=== PATIENT | male | born 1970 | race Hispanic/Latino ===

== ENCOUNTER 2024-09-06 14:42 | Inpatient (IN) | payer BC ==
[~2024-09-06] VITALS: Ht 177.8 cm; Wt 95.3 kg
[2024-09-06 16:46] VITALS: O2SAT 100
[2024-09-06 17:26] VITALS: BP 121/70; PULSE 94; RESP 17; TEMP 98.9
[2024-09-06] MEDS ORDERED: ceFAZolin SODIUM 1 GM VIAL IVP SCH (17:30)
[2024-09-06] MEDS ORDERED: HEParin 25,000 UNITS/250ML D5W 250 ML IV SCH (18:00)
--- NOTE | 2024-09-06 18:42 | HP ---
[facility] HISTORY AND PHYSICAL Date of Service: September 06, 2024 Time of Service: 18:42 Attending/supervising physicians: Dr. Gallegos and Dr. Jv Knox HISTORY OF PRESENT ILLNESS: Mr. Merritt is a 53-year-old male with a history of tobacco and cocaine abuse who [place] [facility] [place] [facility] for evaluation of CABG for the diagnosis of multivessel disease. Per chart review the patient presented to [facility] on 09/06/2024 with chest pain that started at 1:00 a.m.. The patient reported he had cocaine on 09/05/2024 night. EKG showed sinus rhythm with a recent OK in the anterior septal lead. His troponins were markedly elevated. The patient was evaluated by Dr. Ange Bro, brown stock washer Per Echo done on 09/06/2024: Left ventricular systolic dysfunction is spbruhld-ha-igwoyg decreased. There was anterior anterolateral, anteroseptal wall hypokinesis LVEF is 35-40%. Transmitral Doppler flow pattern suggestive of impaired LV relaxation. The patient underwent a left heart catheterization on 09/06/2024, findings: Left main- It bifurcates into LAD and left circumflex arteries. It has proximal 40% disease. 2. LAD: It is 100% chronic total occlusion of the proximal segment of LAD. The distal segment was filling partially via collaterals coming from the right coronary artery. 3. Left circumflex artery: It has 2 obtuse marginal branches. There is 99% disease in the mid segmental of the left circumflex artery. 4. RCA: It is the dominant vessel. There is proximal 40% disease. There is a mid RCA 80% disease. Distal RCA is also has 20% disease. Right PLB also has diffuse 20% disease. 5. LVED P: 60 mm Hg. I assessed the patient in room 201. RN reports that he spoke to Dr. Abreu who reports that the plan is for surgery tomorrow. The patient's breathing was even, unlabored, in no distress. Patient reports intermittent chest pain. states she is concern for medication administration due to his use of cocaine. I informed the patient and at bedside of plan of care. They verbalized understanding and are in agreement with the plan. Plan and assessment are listed below. REVIEW OF SYSTEMS 12-point ROS reviewed with the patient. All pertinent positives mentioned above. Otherwise negative, nonpertinent, noncontributory. PAST MEDICAL HISTORY: As mentioned above PAST SURGICAL HISTORY: None PAST SOCIAL HISTORY: + cocaine abuse, tobacco abuse, and alcohol abuse Coded Allergies: No Known Drug Allergies (Unverified Allergy, Unknown, 09/06/24) PHYSICAL EXAM GENERAL APPEARANCE: The patient is awake, alert, and oriented, in no acute cardiopulmonary distress. NEUROLOGICAL: Cranial nerves II-XII grossly intact. Motor is 5/5 in bilateral upper and lower extremities proximal to distal. No sensory deficits. HEENT: Face is symmetric. Pupils are equal and reactive. Extraocular movements are intact. NECK: Supple. No JVD. No thyromegaly. No submental, submandibular, pre- /postauricular, occipital or supraclavicular lymphadenopathy. CHEST: Normal chest expansion. No Telemetry. LUNGS: Absence of any rales, rhonchi or any wheezing. CARDIOVASCULAR: Regular. S1 and S2 normal. No appreciable rubs, murmurs or gallops. ABDOMEN: Soft, nontender, and nondistended. There is no rebound, voluntary guarding, or rigidity. : Deferred. No Mott. EXTREMITIES: Non-edematous and not cyanotic. No clubbing. Good capillary refill. SKIN: No skin breakdown. Vital Sign (Last 24 Hours) 09/06/24 09/06/24 16:46 17:26 Temp 99.0 Pulse 94 Resp 17 B/P (MAP) 121/70 Pulse Ox 97 O2 Delivery Room Air O2 Flow Rate 0 FiO2 21 LABS: Current Medications Medications (Trade) Dose Ordered Sig/Georgina Route PRN Reason Start Time Stop Time Status Last Admin Dose Admin Atorvastatin Calcium (LIPItor 40MG) 40 mg HS PO 09/06/24 21:00 10/06/24 20:59 Cefazolin Sodium (ANCEF 1 gm vial) 2 gm ONCALL IVP 09/06/24 17:30 09/08/24 17:29 Heparin Sodium/ Dextrose 250 ml @ 0 mls/hr PROTOCOL IV 09/06/24 18:00 10/06/24 17:59 Pantoprazole Sodium (PROTonix 40MG TAB) 40 mg DAILY PO 09/07/24 09:00 10/07/24 08:59 DIAGNOSTICS / RADIOLOGY: [ ] ASSESSMENT: Non ST-elevation OK, POA Severe multivessel coronary artery disease, per left heart catheterization on 09/06/2024: 1. Left main- It bifurcates into LAD and left circumflex arteries. It has proximal 40% disease. 2. LAD: It is 100% chronic total occlusion of the proximal segment of LAD. The distal segment was filling partially via collaterals coming from the right coronary artery. 3. Left circumflex artery: It has 2 obtuse marginal branches. There is 99% disease in the mid segmental of the left circumflex artery. 4. RCA: It is the dominant vessel. There is proximal 40% disease. There is a mid RCA 80% disease. Distal RCA is also has 20% disease. Right PLB also has diffuse 20% disease. 5. LVED P: 60 mm Hg. Left ventricular systolic dysfunction is [id number] decreased, per echo on 09/06/2024 Anterior anterolateral, anteroseptal wall hypokinesis LVEF is 35-40%, per echo on 09/06/2024Transmitral Doppler flow pattern suggestive of impaired LV relaxation. Diastolic dysfunction Acute hypoxemic respiratory failure, POA Leukocytosis Hyperglycemia Transaminitis Elevated BNP Cocaine abuse Tobacco abuse PLAN: -Admit to medical floor with continuous telemetry monitoring. -Troponin levels and EKG series. -CV surgeon was consulted upon patient arrival by primary nurse. Plan is for CABG tomorrow. -Cardiology consult in the am. -2D echo in a.m. with heart clinic to read. -p.r.n. medications for: Pain management, nausea, vomiting, fever, hypertension. -Oxygen supplement as needed to maintain oxygen levels equal to or greater than 92% -Start heparin drip ordered by CV surgeon. -Atorvastatin 40 mg PO daily. -Ancef 2 g on-call to OR. -Blood pressure checks every 4 hours and as needed. -Reconcile home medications once available. -Glucometer checks before meals and at bedtime with insulin regular sliding scale. -AM labs: CBC, BNP, Mag, phos, TSH, A1c, ABO Rh/type and screen. -Monitor renal and liver function. -Monitor electrolytes and treat accordingly. -DVT and GI prophylaxis: Heparin and Protonix. ADVANCED CARE PLANNING 1. Which of the following were discussed? Hospice Care - No Therapeutic options - Yes Advance Directives - Yes Other discussions - 2. Discussed with who? Patient 3. Voluntary nature of this service was explained to the patient? Yes 4. Amount of time spent - __ over 35 minutes 5. Reviewed by Physician? (if this service was performed by NPP) Yes ATTESTATION BY PHYSICIAN I have seen and examined the patient. I reviewed the documentation, medical decision making, and treatment plan as noted by the mid-level provider above. I agree with the findings and plan of care. NANCY CHAVEZ [facility] September 06, 2024 18:42
[2024-09-06 18:59] LABS: BASOPHILS # (AUTO) 0.05 K/uL (0.00-0.20); BASOPHILS % (AUTO) 0.4 % (0.0-5.0); EOSINOPHILS % (AUTO) 0.7 % (0.0-8.0); HEMATOCRIT 46.9 % (42-54); IMMATURE GRANULOCYTE ABSOLUTE 0.06 K/uL (0-1); LYMPHOCYTES # (AUTO) 1.8 K/uL (1.0-4.8); LYMPHOCYTES % (AUTO) 13.1 % (21.0-51.0); MEAN CORPUSCULAR HEMOGLOBIN 31.2 pg (27.0-33.0); MEAN CORPUSCULAR HGB CONC 35.2 g/dL (32.0-36.0); MEAN CORPUSCULAR VOLUME 88.7 fL (79-99); MONOCYTES # (AUTO) 1.1 K/uL (0.1-1.0); MONOCYTES % (AUTO) 8.3 % (3.0-13.0); NEUTROPHILS # (AUTO) 10.5 K/uL (1.8-7.7); NEUTROPHILS % (AUTO) 77.1 % (40.0-77.0); PLATELET COUNT (AUTO) 269 K/uL (130-400); RED BLOOD CELL COUNT(AUTO) 5.29 MIL/uL (4.50-6.20); RED CELL DISTRIBUTION WIDTH 13.2 % (11.0-15.5); WHITE BLOOD COUNT (AUTO) 13.6 K/uL (4.8-10.8)
[2024-09-06] MEDS ORDERED: LACTULOSE 20 GM/30 ML UDCUP PO PRN (19:00)
[2024-09-06] MEDS ORDERED: LAbetaLOL 20MG SYG IV PRN (19:00)
[2024-09-06] MEDS ORDERED: acetaMINOPHEN 325 MG TAB PO PRN (19:00)
[2024-09-06] MEDS ORDERED: ondanSETRON 4MG INJ IVP PRN (19:00)
[2024-09-06] MEDS ORDERED: doCUSate SODIUM 100 MG CAP PO PRN (19:00)
[2024-09-06] MEDS ORDERED: acetaMINOPHEN 650 MG SUPPOSITORY RC PRN (19:00)
[2024-09-06 19:11] LABS: INR 0.99 (0.85-1.15); PROTHROMBIN TIME 10.5 SEC (9.6-11.6)
[2024-09-06 19:13] LABS: PARTIAL THROMBOPLASTIN TIME 26.2 SEC (26.3-35.5)
[2024-09-06 19:24] LABS: BILIRUBIN,TOTAL 0.5 mg/dL (0.2-1.0); CREATININE 1.1 mg/dL (0.5-1.3); POTASSIUM 4.3 mmol/L (3.5-5.1); TOTAL PROTEIN, SERUM 8.1 g/dL (6.0-8.3)
[2024-09-06 19:25] VITALS: BP 126/74; PULSE 93; RESP 18; TEMP 98.7
--- NOTE | 2024-09-06 19:37 | HMCIMG ---
Exam Type: CHEST 1VW Clinical Information: preop CABG Comparison: None Findings: The lungs are clear of infiltrates. The heart is normal in size. The bony and soft tissue structures of the chest are unremarkable. Impression: Clear lungs.
[2024-09-06 19:58] VITALS: O2SAT 100
[2024-09-06 19:58] LABS: ABG BASE EXCESS -1.4 mmol/L (-2.0-3.0); ABG HCO3 22.9 mmol/L (21.0-28.0); ABG OXYGEN SATURATION 95.7 % (94.0-98.0); ABG PCO2 37 mmHg (35-48); ABG PH 7.404 (7.350-7.450); PO2, ARTERIAL BG 78.2 mmHg (83.0-108.0); VENT MODE, BG RA (ROOM AIR)
--- NOTE | 2024-09-06 20:28 | HMCIMG ---
Carotid Duplex and color-flow Doppler bilateral History: preop CABG Comparison: None Findings: No significant plaque is identified on either side. Left Internal Carotid Artery Peak Systolic Velocity (PSV), Left Internal Carotid to Common Carotid Artery peak systolic velocity ratio, Right Internal Carotid Artery Peak Systolic Velocity (PSV) and Right Internal Carotid to Common Carotid Artery peak systolic velocity ratio, are all within normal limits. External carotid artery velocities normal bilaterally. Bilateral vertebral arteries show antegrade flow. Impression: Normal exam. NASCET CRITERIA. The degree of internal carotid artery stenosis is based on NASCET criteria. Normal is no stenosis. Mild is less than 50% stenosis. Moderate is 50-69% stenosis. Severe is 70% to 99% stenosis. Total occlusion is no detectable patent lumen.
[2024-09-06] MEDS: atorVAStatin 40 MG TABLET PO SCH (21:00)
[2024-09-06] MEDS: HEParin 10,000 UNIT/10ML (1,000 UNIT/ML) VIAL IV ONE (21:30)
[2024-09-06] MEDS: morPHINE 4 MG SYG IM SCH (21:30)
[2024-09-06] MEDS ORDERED: traMADol HCL 50 MG TABLET PO SCH (21:30)
[2024-09-06 23:04] VITALS: BP 122/76; PULSE 101; RESP 16; TEMP 99.3
[2024-09-07] VITALS (47 sets, daily range): BP systolic 83–174; BP diastolic 52–88; PULSE 72–107; RESP 12–26; TEMP 97.7–99.7; O2SAT 97–100
[2024-09-07] MEDS: INSULIN humuLIN R 100 UNIT/ML 3ML SQ SCH
[2024-09-07 02:18] LABS: HEMOGLOBIN A1C 5.2 % (4.0-6.0)
[2024-09-07] MEDS ORDERED: traMADol HCL 50 MG TABLET PO PRN ×2 (03:00→12:00)
[2024-09-07 04:24] LABS: HEMATOCRIT 47.2 % (42-54); MEAN CORPUSCULAR HEMOGLOBIN 31.3 pg (27.0-33.0); MEAN CORPUSCULAR VOLUME 89.4 fL (79-99); RED BLOOD CELL COUNT(AUTO) 5.28 MIL/uL (4.50-6.20); RED CELL DISTRIBUTION WIDTH 13.3 % (11.0-15.5); WHITE BLOOD COUNT (AUTO) 13.8 K/uL (4.8-10.8)
[2024-09-07 04:36] LABS: CREATININE 1.2 mg/dL (0.5-1.3); POTASSIUM 3.8 mmol/L (3.5-5.1)
[2024-09-07 04:40] LABS: INR 1.06 (0.85-1.15); PROTHROMBIN TIME 11.2 SEC (9.6-11.6)
[2024-09-07 04:47] LABS: ALBUMIN 3.8 g/dL (3.5-5.0); BILIRUBIN,TOTAL 0.6 mg/dL (0.2-1.0); MAGNESIUM 1.8 mg/dL (1.80-2.40); PHOSPHORUS 4.2 mg/dL (2.5-4.9); THYROID STIMULATING HORMONE 1.09 uIU/mL (0.36-3.74); TOTAL PROTEIN, SERUM 7.7 g/dL (6.0-8.3)
[2024-09-07 05:21] LABS: PARTIAL THROMBOPLASTIN TIME 103.3 SEC (26.3-35.5)
[2024-09-07] MEDS ORDERED: EPINEPHrine PF 1MG (1:1,000) 10 MG in 0.9% NACL 250ML 240 ML IV PRN ×2 (07:00→12:00)
[2024-09-07] MEDS ORDERED: aminoCAProic ACID 5,000MG VIAL 15,000 MG in 0.9% NACL 500ML IV.SOLN 420 ML IV PRN (07:00)
[2024-09-07] MEDS ORDERED: NITROGLYCERIN 50MG/D5W 250ML 1 BOT ONE (07:22)
[2024-09-07] MEDS ORDERED: LACTATED RINGERS 1000ML 1,000 ML IV SCH (08:00)
--- NOTE | 2024-09-07 08:00 | NUR ---
Called Dr. Gallegos for bata aba but BP is below 100 systolic. He ordered LR at 50ml/hr
[2024-09-07] MEDS ORDERED: HEParin-NS 1,000 UNIT/500 ML 500 ML IV ONE (08:10)
[2024-09-07] MEDS ORDERED: PANTOPrazole 40 MG TAB DR PO SCH (09:00)
--- NOTE | 2024-09-07 09:03 | PN ---
[facility] PROGRESS NOTE Date of Service: September 07, 2024 Time of Service: 09:00 SUBJECTIVE: Mr. Merritt is a 53-year-old male with a history of tobacco and cocaine abuse who presented to [facility] [place] as direct admit from [facility] for evaluation of CABG for the diagnosis of multivessel disease. Per chart review the patient presented to [facility] on 09/06/2024 with chest pain that started at 1:00 a.m.. The patient reported he had cocaine on 09/05/2024 night. EKG showed sinus rhythm with a recent AR in the anterior septal lead. His troponins were markedly elevated. The patient was evaluated by Dr. Ange Bro, credit reference clerk Per Echo done on 09/06/2024: Left ventricular systolic dysfunction is hnypyyln-yi-kpiibg decreased. There was anterior anterolateral, anteroseptal wall hypokinesis LVEF is 35-40%. Transmitral Doppler flow pattern suggestive of impaired LV relaxation. The patient underwent a left heart catheterization on 09/06/2024, findings: Lef t main- It bifurcates into LAD and left circumflex arteries. It has proximal 40% disease. 2. LAD: It is 100% chronic total occlusion of the proximal segment of LAD. The distal segment was filling partially via collaterals coming from the right coronary artery. 3. Left circumflex artery: It has 2 obtuse marginal branches. There is 99% disease in the mid segmental of the left circumflex artery. 4. RCA: It is the dominant vessel. There is proximal 40% disease. There is a mid RCA 80% disease. Distal RCA is also has 20% disease. Right PLB also has diffuse 20% disease. 5. LVED P: 60 mm Hg. Patient was transferred from [facility] to [facility] for the purpose of coronary artery bypass graft by Cardiothoracic surgeon. Today the patient is alert oriented x3, hemodynamically stable, NPO, awaiting to be taken to the operating room today. Family members at bedside. REVIEW OF SYSTEMS 12-point ROS reviewed with the patient. All pertinent positives mentioned above. Otherwise negative, nonpertinent, noncontributory. PHYSICAL EXAM GENERAL APPEARANCE: The patient is awake, alert, and oriented, in no acute cardiopulmonary distress. NEUROLOGICAL: Cranial nerves II-XII grossly intact. Motor is 5/5 in bilateral upper and lower extremities proximal to distal. No sensory deficits. HEENT: Face is symmetric. Pupils are equal and reactive. Extraocular movements are intact. NECK: Supple. No JVD. No thyromegaly. No submental, submandibular, pre- /postauricular, occipital or supraclavicular lymphadenopathy. CHEST: Normal chest expansion. No Telemetry. LUNGS: Absence of any rales, rhonchi or any wheezing. CARDIOVASCULAR: Regular. S1 and S2 normal. No appreciable rubs, murmurs or gallops. ABDOMEN: Soft, nontender, and nondistended. There is no rebound, voluntary guarding, or rigidity. : Deferred. No Mott. EXTREMITIES: Non-edematous and not cyanotic. No clubbing. Good capillary refill. SKIN: No skin breakdown. Vital Signs (last 8hr) Date Time Temp Pulse Resp B/P (MAP) Pulse Ox O2 Delivery O2 Flow Rate FiO2 09/07/24 08:00 99.1 72 18 104/73 96 Room Air 09/07/24 03:15 99.7 89 18 93/64 95 Room Air LABS: Laboratory: Test 09/07/24 03:59 09/06/24 19:56 09/06/24 18:27 Range/Units White Blood Count 13.8 H 4.8-10.8 K/uL Red Blood Count 5.28 4.50-6.20 MIL/uL Hemoglobin 16.5 14.0-18.0 g/dL Hematocrit 47.2 42-54 % Mean Corpuscular Volume 89.4 79-99 fL Mean Corpuscular Hemoglobin 31.3 27.0-33.0 pg Mean Corpuscular Hemoglobin Concent 35.0 32.0-36.0 g/dL Red Cell Distribution Width 13.3 11.0-15.5 % Platelet Count 243 130-400 K/uL Mean Platelet Volume 9.7 7.5-10.5 fL Nucleated Red Blood Cells 0.0 0.0-0.19 % Prothrombin Time 11.2 9.6-11.6 SEC Prothromb Time International Ratio 1.06 0.85-1.15 Activated Partial Thromboplast Time 103.3 #*H 26.3-35.5 SEC Sodium Level 140 136-145 mmol/L Potassium Level 3.8 3.5-5.1 mmol/L Chloride Level 103 101-111 mmol/L Carbon Dioxide Level 30 21-32 mmol/L Blood Urea Nitrogen 11 7-18 mg/dL Creatinine 1.2 0.5-1.3 mg/dL Glomerular Filtration Rate Calc 72 >90 mL/min Random Glucose 121 H 70-105 mg/dL Total Calcium 9.4 8.5-10.1 mg/dL Phosphorus Level 4.2 2.5-4.9 mg/dL Magnesium Level 1.80 1.80-2.40 mg/dL Total Bilirubin 0.6 0.2-1.0 mg/dL Aspartate Amino Transf (AST/SGOT) 356 H 10-37 U/L Alanine Aminotransferase (ALT/SGPT) 88 H 12-78 U/L Alkaline Phosphatase 73 50-136 U/L B-Type Natriuretic Peptide 334 H 0-100 pg/mL Total Protein 7.7 6.0-8.3 g/dL Albumin 3.8 3.5-5.0 g/dL Triglycerides Level 105 30-200 mg/dL Cholesterol Level 269 H <200 mg/dL LDL Cholesterol 186 H 0-99 mg/dL HDL Cholesterol 47 29-71 mg/dL Thyroid Stimulating Hormone (TSH) 1.09 0.36-3.74 uIU/mL Blood Gas Specimen Type Arterial Arterial Blood pH 7.404 7.350-7.450 Arterial Blood Partial Pressure CO2 37 35-48 mmHg Arterial Blood Partial Pressure O2 78.2 L 83.0-108.0 mmHg Arterial Blood HCO3 22.9 21.0-28.0 mmol/L Arterial Blood Oxygen Saturation 95.7 94.0-98.0 % Arterial Blood Base Excess -1.4 -2.0-3.0 mmol/L Blood Gas Temperature 37.0 35.5-37.0 CELSIUS Blood Gas Vent Mode RA ROOM AIR FiO2 21.0 % Blood Gas Specimen Comment RN, LB Immature Granulocyte % (Auto) 0.4 0-1 % Neutrophils (%) (Auto) 77.1 H 40.0-77.0 % Lymphocytes (%) (Auto) 13.1 L 21.0-51.0 % Monocytes (%) (Auto) 8.3 3.0-13.0 % Eosinophils (%) (Auto) 0.7 0.0-8.0 % Basophils (%) (Auto) 0.4 0.0-5.0 % Neutrophils # (Auto) 10.5 H 1.8-7.7 K/uL Lymphocytes # (Auto) 1.8 1.0-4.8 K/uL Monocytes # (Auto) 1.1 H 0.1-1.0 K/uL Eosinophils # (Auto) 0.10 0.00-0.70 K/uL Basophils # (Auto) 0.05 0.00-0.20 K/uL Absolute Immature Granulocyte (auto 0.06 0-1 K/uL Hemoglobin A1c 5.2 4.0-6.0 % Estimated Average Glucose (eAG) 103 70-126 mg/dL Troponin I High Sensitivity 40499 *H 4-75 ng/L Current Medications Medications (Trade) Dose Ordered Sig/Georgina Route PRN Reason Start Time Stop Time Status Last Admin Dose Admin Acetaminophen (TYLenol 325MG TAB) 650 mg Q6H PRN PO FEVER/MILD PAIN LEVEL 1-3 09/06/24 19:00 10/06/24 18:59 Acetaminophen (TYLenol 650MG SUPPOSITORY) 650 mg Q6H PRN RC FEVER / MILD PAIN 1-3 IF NPO 09/06/24 19:00 10/06/24 18:59 Aminocaproic Acid 44192 mg/Sodium Chloride 480 ml @ 0 mls/hr AD PRN IV BLEEDING CONTROL 09/07/24 07:00 10/07/24 06:59 Atorvastatin Calcium (LIPItor 40MG) 40 mg HS PO 09/06/24 21:00 10/06/24 20:59 09/06/24 21:00 40 MG Cefazolin Sodium (ANCEF 1 gm vial) 2 gm ONCALL IVP 09/06/24 17:30 09/07/24 08:00 DC Cefazolin Sodium (Ancef) 2 gm ONCALL IVP 09/07/24 08:30 09/08/24 17:29 Docusate Sodium (COLace 100MG CAP) 100 mg BID PRN PO c 09/06/24 19:00 10/06/24 18:59 Epinephrine HCl 10 mg/Sodium Chloride 250 ml @ 0 mls/hr AD PRN IV TITRATE 09/07/24 07:00 10/07/24 06:59 Heparin Sodium/ Dextrose 250 ml @ 0 mls/hr PROTOCOL IV 09/06/24 18:00 10/06/24 17:59 Insulin Human Regular (humuLIN R 100 UNIT/ML 3ML) INSULIN SLIDING SCAL... Q6H6 SQ 09/07/24 00:00 10/07/24 00:00 Labetalol HCl (TRANdate 20MG SYG) 10 mg Q2H PRN IV SBP GREATER THAN 160 09/06/24 19:00 10/06/24 18:59 Lactated Ringer's 1,000 ml @ 50 mls/hr Q20H IV 09/07/24 08:00 10/07/24 07:59 Lactulose (Constulose 20gm/ 30ml Udcup) 20 gm Q6H PRN PO CONSTIPATION 09/06/24 19:00 10/06/24 18:59 Morphine Sulfate (morPHINE 4MG SYG) 4 mg ONCE IM 09/06/24 21:30 09/06/24 23:59 DC 09/06/24 21:30 4 MG Norepinephrine Bitartrate 250 ml @ 0 mls/hr AD PRN IV TITRATE 09/07/24 07:00 10/07/24 06:59 Ondansetron HCl (zoFRAN 4MG INJ) 4 mg Q6H PRN IVP NAUSEA/VOMITING 09/06/24 19:00 10/06/24 18:59 Pantoprazole Sodium (PROTonix 40MG TAB) 40 mg DAILY PO 09/07/24 09:00 10/07/24 08:59 Tramadol HCl (UltRAM) 50 mg Q6H PO 09/06/24 21:30 09/07/24 02:59 DC Tramadol HCl (UltRAM) 50 mg Q6H PRN PO MODERATE PAIN (4-6) 09/07/24 03:00 09/11/24 21:29 DIAGNOSTICS / RADIOLOGY: [ ] ASSESSMENT: Non ST-elevation AR, POA Severe multivessel coronary artery disease, per left heart catheterization on 09/06/2024: 1. Left main- It bifurcates into LAD and left circumflex arteries. It has proximal 40% disease. 2. LAD: It is 100% chronic total occlusion of the proximal segment of LAD. The distal segment was filling partially via collaterals coming from the right coronary artery. 3. Left circumflex artery: It has 2 obtuse marginal branches. There is 99% disease in the mid segmental of the left circumflex artery. 4. RCA: It is the dominant vessel. There is proximal 40% disease. There is a mid RCA 80% disease. Distal RCA is also has 20% disease. Right PLB also has diffuse 20% disease. 5. LVED P: 60 mm Hg. Left ventricular systolic dysfunction is nemuldqh-pj-gnftcq decreased, per echo on 09/06/2024 Anterior anterolateral, anteroseptal wall hypokinesis LVEF is 35-40%, per echo on 09/06/2024Transmitral Doppler flow pattern suggestive of impaired LV relaxation. Diastolic dysfunction Acute hypoxemic respiratory failure, POA Leukocytosis Hyperglycemia Transaminitis Elevated BNP Cocaine abuse Tobacco abuse PLAN: Patient remains admitted to the PCU Continue the patient on potline monitor Keep the patient NPO Supportive care with IV fluids Patient evaluated by Cardiothoracic surgeon To take the patient to the operating room today for coronary artery bypass graft NEURO: Minimize central acting medications as possible. Fall Precautions. Well lighted room through the day and minimize interruptions through the night to prevent acute delirium. PULMONARY: Supplemental 02 as needed BiPAP as necessary, for respiratory distress Titrate Fio2 to keep Spo2 > or = 90% DuoNebs and CPT as needed IS hourly while awake for pulmonary hygiene prn Out of bed to chair as tolerated Maintain aspiration precautions at all times CARDIOVASCULAR: Follow hemodynamics. Vital signs per facility protocol GI & NUTRITION: Continue nutritional support Aspirations precautions Prokinetic agents and laxatives as needed KIDNEYS & ELECTROLYTES: Strict monitoring of intake and output Daily weights Avoid nephrotoxic agents Monitor electrolytes and replace as needed Goal urine output of 30mL/hr or 0.5mL/kg/hr Medications to be dosed according to renal function. Avoid contrast if possible ENDOCRINE: Maintain blood glucose between 100-180 at all times. Insulin sliding scale for blood glucose management Hypoglycemia and hyperglycemia protocol in place INFECTIOUS DISEASE: Trend temperature, WBC and procalcitonin level Follow cultures, deescalate antibiotics as soon as possible. Panculture if new onset fever HEMATOLOGY & COAGULATION: Monitor H&H. Keep Hgb > 7 Transfuse 1 unit of PRBC for Hgb < 7 Transfuse 1 pack of platelets of platelets < 20, 000 Watch for any signs and symptoms of bleeding SKIN: Pressure ulcer prevention per facility protocol Specialty mattress as needed ORTHO/REHAB Continue PT/OT PRN: MEDICATIONS Tylenol 650 mg po every 4 hrs for fever zofran 4 mg IV every 6 hrs for n/v Hydralazine 5 mg IV every 4 hrs systolic pressure > 160 bowel regiment: lactulose 20 gm PO BID PRN constipation Supportive measures: Continue GI and DVT prophylaxis Disposition: Pending CABG today. All questions answered time spent: > 35 min KYLE RIVERA MD September 07, 2024 09:03
[2024-09-07] MEDS: metoPROLOL tartRATE 25 MG TAB PO ONE (09:49)
[2024-09-07] MEDS: 0.9%NACL 1000ML 1,000 ML IV ONE (09:50)
[2024-09-07] MEDS: ceFAZolin SODIUM 2 GM VIAL ONE (09:50)
[2024-09-07] MEDS ORDERED: ketaMINE 50MG/ML SYRINGE 50 MG/ML DISP.SYRIN ONE ×2 (10:15→13:58)
[2024-09-07] MEDS ORDERED: rocuRONium bROMide 10MG/1ML 5ML VL ONE (10:17)
[2024-09-07] MEDS ORDERED: FENTanyl CITRate PF 50 MCG/1 ML 20ML VIAL IJ ONE (10:17)
[2024-09-07] MEDS ORDERED: proPOFol 10 MG/ML 20ML VIAL IV ONE (10:17)
[2024-09-07] MEDS ORDERED: MIDAZOLAM HCL 1 MG/ML 2ML VIAL ONE (10:17)
[2024-09-07] MEDS ORDERED: LIDOCAINE PF 100MG/5ML (2%) SYRINGE 5ML ONE (10:17)
--- NOTE | 2024-09-07 11:36 | NUR ---
DCP Pt currently out for procedure. Spoke to spouse Florian Merritt [phone]. States pt lives with her in their home. Pt is independent and does not use any medical equipment. 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 Anticipates discharge is for home. Addendum: 09/07/24 at 1156 by DIMAS BREWER RN CM Amended: Links added.
[2024-09-07] MEDS ORDERED: acetaMINOPHEN 325 MG TAB PO PRN (12:00)
[2024-09-07] MEDS ORDERED: acetaMINOPHEN 650 MG SUPPOSITORY RC PRN (12:00)
[2024-09-07] MEDS ORDERED: dexmedeTOMIDine 400MCG/NS100ML IV SCH (12:00)
[2024-09-07] MEDS ORDERED: 0.9%NACL 10ML VIAL IVP PRN (12:00)
[2024-09-07] MEDS ORDERED: poTASSium PHOS 15 mMOL+NS250ML 250 ML IV PRN (12:00)
[2024-09-07] MEDS ORDERED: INSULIN REGULAR, HUMAN 3ML 100 UNIT in 0.9%NACL 100ML 99 ML IV SCH (12:00)
[2024-09-07] MEDS ORDERED: LACTULOSE 20 GM/30 ML UDCUP PO PRN (12:00)
[2024-09-07] MEDS ORDERED: 0.9% NACL 500ML IV.SOLN 500 ML IV SCH (12:00)
[2024-09-07] MEDS ORDERED: ondanSETRON 4MG INJ IV PRN (12:00)
[2024-09-07] MEDS ORDERED: aminoCAProic ACID 5,000MG VIAL 15,000 MG in 0.9% NACL 250ML 250 ML IV SCH (12:00)
[2024-09-07] MEDS ORDERED: DEXTROSE 50%-WATER 50 ML DISP.SYRIN IV PRN (12:00)
[2024-09-07] MEDS ORDERED: morPHINE 2 MG SYG IV PRN (12:00)
[2024-09-07] MEDS: ceFAZolin SODIUM 2 GM VIAL IVP SCH (12:00)
[2024-09-07] MEDS ORDERED: MAGNESIUM HYDROXIDE 30 ML/UDCUP PO PRN (12:00)
[2024-09-07] MEDS ORDERED: NOREPINEPHRINE BITARTRATE 8 MG in DEXTROSE 5%-WATER 250 ML IV PRN (12:00)
[2024-09-07] MEDS ORDERED: GLUCAGON 1MG KIT 1 MG ML IM PRN (12:00)
[2024-09-07] MEDS ORDERED: proPOFol 1000 MG/100 ML 100 ML IV PRN (12:00)
--- NOTE | 2024-09-07 12:06 | EKG ---
[facility] Test Date: 2024-09-07 Test Time: 04:55:56 Pat Name: FROILAN RIVERA Department: [facility] Room: 212 Gender: M Nitriles Lab Technician: [id number] : 1970 Requested By: TAYO RATLIFF Order Number: [id number] Reading MD: Chela Villegas Measurements Intervals [place] Rate: 92 P: 2 AK: 177 QRS: -52 QRSD: 85 T: 97 QT: 353 QTc: 439 Interpretive Statements Sinus rhythm Ventricular premature complex Inferior infarct, old Anterior infarct, acute (LAD) No previous ECG available for comparison Electronically Signed On 09-08-2024 09:18:57 CDT by Chela Villegas Please click the below link to view image of tracing.
[2024-09-07 12:21] LABS: ABG HCO3 19.5 mmol/L (21.0-28.0); ABG OXYGEN SATURATION 99.7 % (94.0-98.0); ABG PCO2 29 mmHg (35-48); ABG PH 7.453 (7.350-7.450); CARBON MONOXIDE 0.5 % (0.5-1.5); DEVICE COMMENT 1; HHb 0.3; PO2, ARTERIAL BG > 500.0 mmHg (83.0-108.0)
[2024-09-07] MEDS ORDERED: SODIUM BICARB 50MEQ 50ML VIAL 50 ML ONE (12:23)
[2024-09-07] MEDS ORDERED: COMPOUND IV MISC 1 EACH IVSOLN MISC PRN (12:30)
[2024-09-07] MEDS ORDERED: COMPOUND IV REFRIGERATED 1 EACH IVSOLN MISC PRN (12:30)
[2024-09-07] MEDS: ceFAZolin SODIUM 1 GM VIAL ONE (13:01)
[2024-09-07] MEDS: PAPAVERINE HCL 30 MG/ML 2ML VIAL ONE (13:03)
[2024-09-07 13:10] LABS: ABG BASE EXCESS -4.6 mmol/L (-2.0-3.0); ABG HCO3 19.2 mmol/L (21.0-28.0); ABG OXYGEN SATURATION 99.5 % (94.0-98.0); ABG PCO2 32 mmHg (35-48); ABG PH 7.395 (7.350-7.450); CARBON MONOXIDE 0.3 % (0.5-1.5); DEVICE COMMENT 2; HHb 0.5; PO2, ARTERIAL BG 463.5 mmHg (83.0-108.0)
[2024-09-07 13:51] LABS: ABG BASE EXCESS -0.5 mmol/L (-2.0-3.0); ABG HCO3 22.8 mmol/L (21.0-28.0); ABG OXYGEN SATURATION 99.6 % (94.0-98.0); ABG PCO2 34 mmHg (35-48); ABG PH 7.449 (7.350-7.450); CARBON MONOXIDE 0.1 % (0.5-1.5); DEVICE COMMENT 3; HHb 0.4; PO2, ARTERIAL BG 465.9 mmHg (83.0-108.0)
[2024-09-07 14:19] LABS: ABG BASE EXCESS -1.4 mmol/L (-2.0-3.0); ABG HCO3 23.2 mmol/L (21.0-28.0); ABG OXYGEN SATURATION 99.3 % (94.0-98.0); ABG PCO2 39 mmHg (35-48); ABG PH 7.397 (7.350-7.450); CARBON MONOXIDE 0.1 % (0.5-1.5); DEVICE COMMENT A-LINE AMBU; HHb 0.7; PO2, ARTERIAL BG 464.5 mmHg (83.0-108.0)
[2024-09-07 14:32] LABS: HEMATOCRIT 36.7 % (42-54); MEAN CORPUSCULAR HEMOGLOBIN 31.6 pg (27.0-33.0); MEAN CORPUSCULAR HGB CONC 35.4 g/dL (32.0-36.0); MEAN CORPUSCULAR VOLUME 89.3 fL (79-99); RED BLOOD CELL COUNT(AUTO) 4.11 MIL/uL (4.50-6.20); RED CELL DISTRIBUTION WIDTH 13.2 % (11.0-15.5); WHITE BLOOD COUNT (AUTO) 21.2 K/uL (4.8-10.8)
[2024-09-07] MEDS: morPHINE 2 MG SYG IV PRN (14:38)
[2024-09-07] MEDS: 0.9%NACL 1000ML 1,000 ML IV SCH (14:39)
[2024-09-07] MEDS: PoTASSium chloRIDE 20MEQ/100ML 100 ML IV PRN (14:39)
[2024-09-07 14:40] LABS: INR 1.19 (0.85-1.15); PROTHROMBIN TIME 12.4 SEC (9.6-11.6)
[2024-09-07 14:41] LABS: CREATININE 1.2 mg/dL (0.5-1.3); MAGNESIUM 1.3 mg/dL (1.80-2.40); PARTIAL THROMBOPLASTIN TIME 24.9 SEC (26.3-35.5); PHOSPHORUS 4.3 mg/dL (2.5-4.9); POTASSIUM 3.4 mmol/L (3.5-5.1)
--- NOTE | 2024-09-07 14:51 | NUR ---
ST elevation noted in Lead II, III and AVF and as per Dr. Jef Koo start nitro. drip and obtain EKG in 1 hour.
[2024-09-07] MEDS: NITROGLYCERIN 50MG/D5W 250ML 250 BOT IV SCH (14:56)
[2024-09-07 15:10] LABS: ABG BASE EXCESS -0.6 mmol/L (-2.0-3.0); ABG HCO3 23.9 mmol/L (21.0-28.0); ABG OXYGEN SATURATION 99.6 % (94.0-98.0); ABG PCO2 39 mmHg (35-48); ABG PH 7.407 (7.350-7.450); CARBON MONOXIDE 0.4 % (0.5-1.5); DEVICE COMMENT A-LINE EDDY; HHb 0.4; PO2, ARTERIAL BG > 500.0 mmHg (83.0-108.0); VENT MODE, BG SIMV-VC PS10 (ROOM AIR)
[2024-09-07] MEDS: MAGNESIUM 2GM PREMIX 50ML 50 ML IV PRN (15:25)
[2024-09-07] MEDS: metoPROLOL tartRATE 25 MG TAB ONE (15:29)
[2024-09-07 15:46] LABS: ABG BASE EXCESS -1.9 mmol/L (-2.0-3.0); ABG HCO3 23.7 mmol/L (21.0-28.0); ABG OXYGEN SATURATION 98.2 % (94.0-98.0); ABG PCO2 44 mmHg (35-48); ABG PH 7.353 (7.350-7.450); CARBON MONOXIDE 0.4 % (0.5-1.5); DEVICE COMMENT A-LINE EDDY; HHb 1.8; PO2, ARTERIAL BG 128.1 mmHg (83.0-108.0); VENT MODE, BG CPAP PS5 (ROOM AIR)
[2024-09-07] MEDS: SODIUM BICARB 50MEQ 50ML VIAL IV PRN (15:57)
[2024-09-07] MEDS: acetaMINOPHEN 1,000 MG/100 ML VIAL IV SCH (15:58)
--- NOTE | 2024-09-07 15:58 | HMCIMG ---
Exam Type: CHEST 1VW Clinical Information: s/p CABG Comparison: None Findings: The heart is enlarged and there is status post median sternotomy and CABG. Left-sided chest tube is noted in place and there is no pneumothorax. The lungs are clear. Endotracheal and nasogastric tubes are seen in place. Femoral line seen with tip near mid chest level. Right central line is noted. IMPRESSION: Status post recent CABG. Clear lungs.
--- NOTE | 2024-09-07 15:59 | NUR ---
Patient tolerated CPAP mode NIF -44 Extubated at 1553 and placed on aerosol mask 40%
--- NOTE | 2024-09-07 16:25 | NUR ---
SPEECH TRIGGER COMPLETED / EXTUBATION Pt IS A 53 Y.O. MALE ADMITTED SECONDARY TO MULTIVESSEL DISEASE. Pt HAS A PAST MEDICAL HISTORY SIGNIFICANT Hx OF TOBACCO AND COCAINE ABUSE. Pt RECENTLY EXTUBATED AND NPO. PLEASE REQUEST SPEECH THERAPY SERVICES FOR SKILLED BEDSIDE SWALLOW EVALUATION 24 HOURS POST EXTUBATION IF ANY S/S OF ASPIRATION ARISE WITH ORAL INTAKE. HELICOPTER MECHANIC COORDINATED WITH NURSE LOPEZ. ALL QUESTIONS ANSWERED AT THIS TIME. Addendum: 09/07/[address] TIEN FLAHERTY Amended: Links added.
--- NOTE | 2024-09-07 16:29 | NUR ---
ST elevation reported to Dr. Abreu and ordered to continue nitroglycerin drip.
[2024-09-07] MEDS: ASPIRIN 81MG CHEW TAB NG ONE (16:45)
[2024-09-07 16:48] LABS: ABG BASE EXCESS 0.6 mmol/L (-2.0-3.0); ABG HCO3 25.8 mmol/L (21.0-28.0); ABG OXYGEN SATURATION 98.6 % (94.0-98.0); ABG PCO2 43 mmHg (35-48); ABG PH 7.392 (7.350-7.450); CARBON MONOXIDE 0.4 % (0.5-1.5); DEVICE COMMENT A-LINE EDDY; HHb 1.4; PO2, ARTERIAL BG 161.3 mmHg (83.0-108.0); VENT MODE, BG CAFM (ROOM AIR)
[2024-09-07] MEDS: ceFAZolin SODIUM 2 GM VIAL IVPB SCH (16:53)
[2024-09-07] MEDS: traMADol HCL 50 MG TABLET PO PRN (17:11)
--- NOTE | 2024-09-07 17:22 | HMCSR ---
APPROVED REPORT EXAM: Two-dimensional and M-mode echocardiogram with Doppler and color Doppler. INDICATION ICD: preop CABG 2D Dimensions RVDd4.0 cmLVEF(%)76.8 (>50%)LVED Vol(simp.)74.0 mL IVSd1.1 (0.7-1.1cm)FS(%)45 %LVES Vol(simp.)43.0 mL LVDd4.1 (3.8-5.6cm)LA (2D)2.3 (1.6-4.0cm)LVEF(%, simp.)41 % PWd1.4 (0.7-1.1cm)Ao Root(2D)3.2 (2.0-3.7cm)LA ESV INDEX (BP)9.65 mL/m2 LVDs2.2 (2.5-4.0cm)LVOT diam2.1 (1.8-2.4cm) IVC diam1.5 cm Deformation Strain Apical 4-6.5 % Apical 2-6.5 % Apical 3-6.3 % Global Strain-6.4 % M-Mode Dimensions EPSS0.7 cm LA (MM)2.1 (1.6-4.0cm) Ao Root(MM)3.0 (2.0-3.7cm) Aortic Valve AoV Vmax0.9 m/Christine Peak GR2.9 mmHgLVOT Vmax0.7 m/s AoV VTI0.1 mAo Mean GR1.6 mmHgLVOT VTI0.13 m KAYODE (VMAX)3.08 cm2AVA (VTI) 3.1 cm2 Mitral Valve MV E Vmax37.5 cm/sDECEL Drgl713 ms MV A Vmax58.0 cm/sP 1/2 T35 ms E/A ratio0.6MVA (PHT)6.4 cm2 TDI E/E' Medial9.5E/E' Qkhrzbh48.9 Medial E' Peak V3.96 cm/sLateral E' Peak V3.43 cm/s Left Ventricle Left ventricular cavity size is normal. There is normal left ventricular wall thickness. LVEF is 40-4 5%. The left ventricular diastolic function is normal. Right Ventricle The right ventricle is normal size. Right ventricular systolic function is mildly reduced. Atria The left atrium is small. The right atrium size is normal. Aortic Valve The aortic valve is normal in structure and function. No aortic regurgitation is present. There is no aortic valvular stenosis. Mitral Valve The mitral valve is normal in structure and function. There is no mitral valve regurgitation noted. T here is no mitral valve stenosis. Tricuspid Valve The tricuspid valve is normal in structure and function. There is no tricuspid valve regurgitation no kamran. Pulmonic Valve The pulmonary valve is normal in structure and function. There is no pulmonic valvular regurgitation. Great Vessels The aortic root is normal in size. The IVC is normal in size and collapses >50% with inspiration. Pericardium No pericardial effusion. Conclusion Left ventricular cavity size is normal. LVEF is 40-45%. The left ventricular diastolic function is normal. The right ventricle is normal size. Right ventricular systolic function is mildly reduced. The left atrium is small. The right atrium size is normal. No valvular pathology. No pericardial effusion.
[2024-09-07] MEDS ORDERED: TAMS-55 PO (17:48)
[2024-09-07] MEDS ORDERED: ATOR10TA69 PO (17:48)
--- NOTE | 2024-09-07 19:16 | NUR ---
PT to follow postop
[2024-09-07] MEDS: acetaMINOPHEN 325 MG TAB PO PRN (19:44)
--- NOTE | 2024-09-07 20:05 | EKG ---
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
--- NOTE | 2024-09-07 20:05 | EKG ---
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
[2024-09-07] MEDS: FAMOTIDINE 20MG VIAL IV SCH (20:08)
[2024-09-07] MEDS: doCUSate SODIUM 100 MG CAP PO SCH (20:08)
--- NOTE | 2024-09-07 21:15 | OP ---
DATE OF PROCEDURE: 09/07/2024 PREOPERATIVE DIAGNOSIS: Coronary artery disease, total LAD. POSTOPERATIVE DIAGNOSIS: Coronary artery disease, total LAD. PROCEDURE: Off-pump CABG x 3 DAMON to LAD, reverse saphenous vein graft to oblique marginal 3, reverse saphenous vein graft to RCA. SURGEON: Kings Abreu MD [facility] COORDINATOR: Anthony. ANESTHESIA: Olivarez. CONSTRUCTION PIT WORKER: David Stroud MD DISPOSITION: Stable. COMPLICATIONS: None. INDICATIONS: This patient ____, presented with cardiac symptoms. Cardiac catheterization demonstrates 3-vessel coronary artery disease with total occlusion of the LAD and the patient is referred for surgical revascularization. I had the opportunity to review the films and discuss the case with Dr. Stroud at length. We both agreed to surgery as indicated and we recommended it. The patient understands the indications for surgery as well as the potential complications of the operation and wishes to proceed with surgery. DESCRIPTION OF PROCEDURE IN DETAIL: With the patient in the supine position after adequate induction of general endotracheal anesthesia, preoperative intravenous antibiotics, percutaneous arterial and venous lines, surgeon directed timeout utilizing 2 patient identifiers, followed by a mid sternotomy, simultaneous harvesting of the left internal mammary artery from anterior left chest wall and greater saphenous vein from the left lower extremity using endoscope technique. The patient was systemically heparinized and the mammary artery was from the chest in preparation for bypass. Chest retractor was placed. Utilizing mechanical stabilizer and 4-prong tourniquet for vascular control, 3 distal anastomoses performed in a sterile fashion with DAMON and LAD, reverse saphenous vein graft, oblique margin, reverse of venous vein graft and RCA. A partial occlusion clamp placed in the descending aorta and two 4.8 mm punch was performed, running suture of 5-0 Prolene to construct the proximal anastomosis. Grafts deaired and myocardium revascularized. Protamine, hemostasis and closure. Two chest drains, stainless steel wires for sternum, open reduction and internal fixation utilizing 3 TEJA plates and eighteen #16 gauge screws, #1 Vicryl and 3-0 Monocryl for closure. The patient was transferred in stable condition to the ICU. TID: [id number] RECEIPT: [id number]
[2024-09-07] MEDS: CALCIUM GLUC 1GM 1 GM in 0.9%NACL 50ML 50 ML IV PRN (21:23)
[2024-09-07 21:30] LABS: POTASSIUM 4.3 mmol/L (3.5-5.1)
[2024-09-08] VITALS (109 sets, daily range): BP systolic 80–141; BP diastolic 44–84; PULSE 84–103; RESP 4–30; TEMP 98.3–98.9; O2SAT 95–98
[2024-09-08 03:04] LABS: MEAN CORPUSCULAR HGB CONC 35.7 g/dL (32.0-36.0); MEAN CORPUSCULAR VOLUME 89.5 fL (79-99); RED BLOOD CELL COUNT(AUTO) 3.91 MIL/uL (4.50-6.20); RED CELL DISTRIBUTION WIDTH 13.2 % (11.0-15.5); WHITE BLOOD COUNT (AUTO) 15.4 K/uL (4.8-10.8)
[2024-09-08 03:15] LABS: INR 1.05 (0.85-1.15); PROTHROMBIN TIME 11.1 SEC (9.6-11.6)
[2024-09-08 03:16] LABS: PARTIAL THROMBOPLASTIN TIME 25.6 SEC (26.3-35.5)
[2024-09-08 03:48] LABS: CREATININE 0.9 mg/dL (0.5-1.3); MAGNESIUM 1.5 mg/dL (1.80-2.40); PHOSPHORUS 4.3 mg/dL (2.5-4.9); POTASSIUM 3.9 mmol/L (3.5-5.1)
--- NOTE | 2024-09-08 08:59 | CONS ---
[facility] CARDIOLOGY CONSULTATION NOTE Date Patient Seen: September 08, 2024 Time of Visit: 08:55 Reason for Consultation: [s/p CABG ] History of Present Illness: [ 53 yo M with a history of tobacco and cocaine abuse who presented to [facility] as direct admit from [facility] for evaluation of CABG for the diagnosis of multivessel disease. Per chart review the patient presented to [facility] on 09/06/2024 with chest pain that started at 1:00 a.m.. The patient reported he had cocaine on 09/05/2024 night. EKG showed sinus rhythm with a recent VT in the anterior septal lead. His troponins were markedly elevated. The patient was evaluated by Dr. Ange Bro, cigar packer and shader Per Echo done on 09/06/2024: Left ventricular systolic dysfunction is [id number] decreased. There was anterior anterolateral, anteroseptal wall hypokinesis LVEF is 35-40%. Transmitral Doppler flow pattern suggestive of impaired LV relaxation. The patient underwent a left heart catheterization on 09/06/2024, findings: Left main- It bifurcates into LAD and left circumflex arteries. It has proximal 40% disease. 2. LAD: It is 100% chronic total occlusion of the proximal segment of LAD. The distal segment was filling partially via collaterals coming from the right coronary artery. 3. Left circumflex artery: It has 2 obtuse marginal branches. There is 99% disease in the mid segmental of the left circumflex artery. 4. RCA: It is the dominant vessel. There is proximal 40% disease. There is a mid RCA 80% disease. Distal RCA is also has 20% disease. Right PLB also has diffuse 20% disease. 5. LVED P: 60 mm Hg. Patient is s/p CABG 5/6. ] Past Medical History: [ ] Past Surgical History: [ ] Family History: [ ] Social History: [ ] Habits: [Never] smoker. [Denies] alcohol consumption. [Denies] illicit drug use Home Meds: [ ] Current Meds: [ ] Review of Systems: CONST: [No fever, fatigue, or weight changes.] EYES: [No recent vision problems.] ENT: [No congestion, ear pain, or sore throat.] C/V: [No chest pain, palpitations, or edema.] RESP: [No cough, congestion, wheezing or shortness of breath.] GI: [No abdominal pain, nausea, vomiting, constipation, or diarrhea.] : [No incontinence or dysuria.] SKIN: [No rash.] NEURO: [No headache, focal numbness or weakness, dizziness, or seizures.] PSYCH: [No depression or anxiety.] HEME: [No abnormal bruising or bleeding.] LYMPH: [No swollen glands.] Physical Examination: GENERAL: [No acute distress.] HEAD: [Normal with no signs of head trauma.] EYES: [PERRLA, EOMI, conjunctiva and sclera normal.] ENT: [Hearing grossly intact, normal oropharynx.] NECK: [Supple without JVD. There is no tenderness, lymphadenopathy, or masses. No thyromegaly. Normal carotid upstrokes without bruits.] LUNGS: [Clear breath sounds bilaterally. There are right basilar rales one third of the way up the chest. No wheezes, or rhonchi.] HEART: [Normal rate and rhythm. Normal S1 and S2 without mumurs, gallop or rub.] VASC: [Peripheral pulses +2 bilaterally.] ABD: [Bowel sounds normal, soft, nontender, no masses, no organomegaly. No audib le bruits.] : [Not examined] LYMPH: [No lymphadenopathy noted.] EXT: [No clubbing, cyanosis or edema.] SKIN: [No rashes or lesions noted.] NEURO: [Awake, alert, and oriented x3. No focal sensory or strength deficits noted.] Vital Signs (last 8hr) Date Time Temp Pulse Resp B/P (MAP) Pulse Ox O2 Delivery O2 Flow Rate FiO2 09/08/24 08:52 98.4 Nasal Cannula 2.0 09/08/24 06:49 92 18 N/Cannula Low lpm 2.0 09/08/24 06:45 91 26 119/56 (77) 96 28 09/08/24 06:30 97 28 109/56 (73) 93 09/08/24 06:15 97 28 109/56 (73) 93 21 09/08/24 06:00 102 13 97/56 (70) 97 28 107/57 (74) 09/08/24 05:45 101 20 106/62 (77) 97 09/08/24 05:30 100 20 117/59 (78) 97 09/08/24 05:15 103 23 116/64 (81) 97 09/08/24 05:00 98 23 128/63 (84) 97 28 114/67 (83) 09/08/24 04:45 100 24 129/63 (85) 96 09/08/24 04:30 99 22 131/64 (86) 97 09/08/24 04:15 101 20 124/66 (85) 98 09/08/24 04:14 99.0 Nasal Cannula 2.0 28 09/08/24 04:04 97 Nasal Cannula* 2 28 09/08/24 04:00 100 22 115/59 (77) 97 28 89/53 (65) 09/08/24 03:45 99 22 114/61 (78) 97 09/08/24 03:30 97 20 125/62 (83) 98 09/08/24 03:15 98 21 123/63 (83) 98 09/08/24 03:00 101 27 109/59 (76) 98 28 99/62 (74) 09/08/24 02:45 97 23 108/60 (76) 98 09/08/24 02:30 97 25 118/64 (82) 98 09/08/24 02:15 100 20 114/64 (81) 98 09/08/24 02:00 95 24 107/58 (74) 97 93/51 (65) 09/08/24 01:45 99 19 91/55 (67) 97 09/08/24 01:30 98 19 111/59 (76) 98 09/08/24 01:15 97 11 110/60 (77) 98 09/08/24 01:00 98 18 113/60 (77) 98 28 112/61 (78) Laboratory: [ ] Hematology Labs: Test 09/08/24 02:54 09/06/24 18:27 Range/Units White Blood Count 15.4 #H 4.8-10.8 K/uL Red Blood Count 3.91 L 4.50-6.20 MIL/uL Hemoglobin 12.5 L 14.0-18.0 g/dL Hematocrit 35.0 L 42-54 % Mean Corpuscular Volume 89.5 79-99 fL Mean Corpuscular Hemoglobin 32.0 27.0-33.0 pg Mean Corpuscular Hemoglobin Concent 35.7 32.0-36.0 g/dL Red Cell Distribution Width 13.2 11.0-15.5 % Platelet Count 225 130-400 K/uL Mean Platelet Volume 9.6 7.5-10.5 fL Nucleated Red Blood Cells 0.0 0.0-0.19 % Immature Granulocyte % (Auto) 0.4 0-1 % Neutrophils (%) (Auto) 77.1 H 40.0-77.0 % Lymphocytes (%) (Auto) 13.1 L 21.0-51.0 % Monocytes (%) (Auto) 8.3 3.0-13.0 % Eosinophils (%) (Auto) 0.7 0.0-8.0 % Basophils (%) (Auto) 0.4 0.0-5.0 % Neutrophils # (Auto) 10.5 H 1.8-7.7 K/uL Lymphocytes # (Auto) 1.8 1.0-4.8 K/uL Monocytes # (Auto) 1.1 H 0.1-1.0 K/uL Eosinophils # (Auto) 0.10 0.00-0.70 K/uL Basophils # (Auto) 0.05 0.00-0.20 K/uL Absolute Immature Granulocyte (auto 0.06 0-1 K/uL Chemistry Labs: Test 09/08/24 08:43 09/08/24 03:25 09/07/24 03:59 09/06/24 18:27 Range/Units Whole Blood Glucose 151 H 70-110 MG/DL Sodium Level 140 136-145 mmol/L Potassium Level 3.9 3.5-5.1 mmol/L Chloride Level 105 101-111 mmol/L Carbon Dioxide Level 30 21-32 mmol/L Blood Urea Nitrogen 12 7-18 mg/dL Creatinine 0.9 0.5-1.3 mg/dL Glomerular Filtration Rate Calc 101 >90 mL/min Random Glucose 130 H 70-105 mg/dL Total Calcium 8.1 L 8.5-10.1 mg/dL Ionized Calcium 1.03 L 1.15-1.33 MMOL/L Phosphorus Level 4.3 2.5-4.9 mg/dL Magnesium Level 1.50 L 1.80-2.40 mg/dL Total Bilirubin 0.6 0.2-1.0 mg/dL Aspartate Amino Transf (AST/SGOT) 356 H 10-37 U/L Alanine Aminotransferase (ALT/SGPT) 88 H 12-78 U/L Alkaline Phosphatase 73 50-136 U/L B-Type Natriuretic Peptide 334 H 0-100 pg/mL Total Protein 7.7 6.0-8.3 g/dL Albumin 3.8 3.5-5.0 g/dL Triglycerides Level 105 30-200 mg/dL Cholesterol Level 269 H <200 mg/dL LDL Cholesterol 186 H 0-99 mg/dL HDL Cholesterol 47 29-71 mg/dL Thyroid Stimulating Hormone (TSH) 1.09 0.36-3.74 uIU/mL Hemoglobin A1c 5.2 4.0-6.0 % Estimated Average Glucose (eAG) 103 70-126 mg/dL Troponin I High Sensitivity 54562 *H 4-75 ng/L Coagulation Labs: Test 09/08/24 02:54 Range/Units Prothrombin Time 11.1 9.6-11.6 SEC Prothromb Time International Ratio 1.05 0.85-1.15 Activated Partial Thromboplast Time 25.6 L 26.3-35.5 SEC Diagnostics / Radiology: [Copy/Paste Echos/Imaging Report here] Assessment: [ Non ST-elevation VT, POA Severe multivessel coronary artery disease, per left heart catheterization on 09/06/2024: 1. Left main- It bifurcates into LAD and left circumflex arteries. It has proximal 40% disease. 2. LAD: It is 100% chronic total occlusion of the proximal segment of LAD. The distal segment was filling partially via collaterals coming from the right coronary artery. 3. Left circumflex artery: It has 2 obtuse marginal branches. There is 99% disease in the mid segmental of the left circumflex artery. 4. RCA: It is the dominant vessel. There is proximal 40% disease. There is a mid RCA 80% disease. Distal RCA is also has 20% disease. Right PLB also has diffuse 20% disease. 5. LVED P: 60 mm Hg. Left ventricular systolic dysfunction is [id number] decreased, per echo on 09/06/2024 Anterior anterolateral, anteroseptal wall hypokinesis LVEF is 35-40%, per echo on 09/06/2024Transmitral Doppler flow pattern suggestive of impaired LV relaxation. Diastolic dysfunction Acute hypoxemic respiratory failure, POA Leukocytosis Hyperglycemia Transaminitis Elevated BNP Cocaine abuse Tobacco abuse] Plan: [# Non ST-elevation VT due to Severe multivessel coronary artery disease s/p CABG 09/07 - left heart catheterization on 09/06/2024: 1. Left main- It bifurcates into LAD and left circumflex arteries. It has proximal 40% disease. 2. LAD: It is 100% chronic total occlusion of the proximal segment of LAD. The distal segment was filling partially via collaterals coming from the right coronary artery. 3. Left circumflex artery: It has 2 obtuse marginal branches. There is 99% disease in the mid segmental of the left circumflex artery. 4. RCA: It is the dominant vessel. There is proximal 40% disease. There is a mid RCA 80% disease. Distal RCA is also has 20% disease. Right PLB also has diffuse 20% disease. 5. LVED P: 60 mm Hg. -2D echo: Anterior anterolateral, anteroseptal wall hypokinesis LVEF is 40-45%, per echo on 09/07/2024, Will repeat echo 3 months post CABG and monitor for LVEF recovery -lasix 20 mg IV bid, asa, statin -defer plavix to CV surgery team] MARGARITA PEMBERTON MD September 08, 2024 08:59
--- NOTE | 2024-09-08 09:06 | CONS ---
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 Diastolic dysfunction Leukocytosis Hyperglycemia Transaminitis Polysubstance abuse ( Cocaine Tobacco and etoh) Obesity BMI 30.9 HPI: A 53-year-old male with a past medical history of polysubstance abuse with tobacco, cocaine and alcohol who [place] [facility] [facility] for evaluation of CABG. Per chart review and patient report he presented to [facility] on 09/06/24 for evaluation of chest pain that started at proximally at one in the morning. EKG shows sinus rhythm with recent GA in the anterior septal leads, troponin. [place] level was [address]70 on arrival. Left heart catheterization on 09/06/24 showed multivessel CAD which included LAD 100% chronic total occlusion of the proximal segment. 99% of mid segmental left circumflex artery disease. Mid RCA 80% disease. Distal RCA 20% disease. Right p.o. be also has diffuse 20% disease. The RCA is a dominant vessel with proximal 40% disease. LVEDP of 60 mm Hg. Patient was then transferred to this hospital for evaluation of CV surgeon and underwent CABG x3 on 09/07/24. He was admitted to the ICU post CABG and we are consulted for critical care management. On assessment patient is awake alert and oriented x3. Per primary nurse patient was extubated last night currently on 4 L via nasal cannula in no apparent distress saturating 98%. Currently on Levophed at 4 micrograms/minute, epinephrine at 0.05 mcg/kg per minute and nitroglycerin was added because of some ST-elevation post surgery at 50 mcg/min. Blood pressure is 111/53 heart rate in the 70s respiratory rate of 20 saturating 98%. White count trending down since yesterday 15.4 today H&H is sterile 0.5/35 seems to be stable. Chemistry kidneys are doing well creatinine of 0.9 with a GFR 101 glucose of 130 mg/dL ionized calcium of 1.03 covered per protocol magnesium of 1.50 also covered per protocol per primary RN. PAST MEDICAL HX: see above PAST SURGICAL HX: noncontributory SOCIAL HISTORY: No tobacco, ETOH, or illicit drug use Coded Allergies: No Known Drug Allergies (Unverified Allergy, Unknown, 09/06/24) REVIEW OF SYSTEMS: 12 point ROS reviewed with patient. Pertinent positives mentioned above. Otherwise negative. PHYSICAL EXAM: GENERAL: alert, weak, awake oriented x 3 HEENT: EOMI, Sclera non icteric, moist mucosa NECK: Supple, no JVD, trachea midline right IJ CVC. LUNGS: Diminished breath sounds bilaterally. No wheezes. Chest tube in place. HEART: Regular rate and rhythm. Normal S1 and S2, without murmurs ABD: Abdomen soft, nontender. Bowel sounds present EXT: No clubbing cyanosis or edema NEURO: Alert and oriented to person, follows commands Vital Signs (last 8hr) Date Time Temp Pulse Resp B/P (MAP) Pulse Ox O2 Delivery O2 Flow Rate FiO2 09/08/24 08:52 98.4 Nasal Cannula 2.0 28 09/08/24 08:30 87 17 104/53 (70) 97 09/08/24 08:15 90 10 106/52 (70) 97 09/08/24 08:00 92 97/52 (67) 96 09/08/24 07:45 90 9 80/46 (57) 97 106/62 (77) 09/08/24 07:30 89 107/52 (70) 97 09/08/24 07:15 89 29 85/47 (60) 96 09/08/24 07:00 92 20 109/55 (73) 97 09/08/24 06:49 92 18 N/Cannula Low lpm 2.0 28 09/08/24 06:45 91 26 119/56 (77) 96 28 09/08/24 06:30 97 28 109/56 (73) 93 09/08/24 06:15 97 28 109/56 (73) 93 21 09/08/24 06:00 102 13 97/56 (70) 97 28 107/57 (74) 5/7/25 05:45 101 20 106/62 (77) 97 09/08/24 05:30 100 20 117/59 (78) 97 09/08/24 05:15 103 23 116/64 (81) 97 09/08/24 05:00 98 23 128/63 (84) 97 28 114/67 (83) 09/08/24 04:45 100 24 129/63 (85) 96 09/08/24 04:30 99 22 131/64 (86) 97 09/08/24 04:15 101 20 124/66 (85) 98 09/08/24 04:14 99.0 Nasal Cannula 2.0 28 09/08/24 04:04 97 Nasal Cannula* 2 28 09/08/24 04:00 100 22 115/59 (77) 97 28 89/53 (65) 09/08/24 03:45 99 22 114/61 (78) 97 09/08/24 03:30 97 20 125/62 (83) 98 09/08/24 03:15 98 21 123/63 (83) 98 09/08/24 03:00 101 27 109/59 (76) 98 28 99/62 (74) 09/08/24 02:45 97 23 108/60 (76) 98 09/08/24 02:30 97 25 118/64 (82) 98 09/08/24 02:15 100 20 114/64 (81) 98 09/08/24 02:00 95 24 107/58 (74) 97 93/51 (65) 09/08/24 01:45 99 19 91/55 (67) 97 09/08/24 01:30 98 19 111/59 (76) 98 09/08/24 01:15 97 11 110/60 (77) 98 LABS: Hematology Labs: Test 09/08/24 02:54 09/06/24 18:27 Range/Units White Blood Count 15.4 #H 4.8-10.8 K/uL Red Blood Count 3.91 L 4.50-6.20 MIL/uL Hemoglobin 12.5 L 14.0-18.0 g/dL Hematocrit 35.0 L 42-54 % Mean Corpuscular Volume 89.5 79-99 fL Mean Corpuscular Hemoglobin 32.0 27.0-33.0 pg Mean Corpuscular Hemoglobin Concent 35.7 32.0-36.0 g/dL Red Cell Distribution Width 13.2 11.0-15.5 % Platelet Count 225 130-400 K/uL Mean Platelet Volume 9.6 7.5-10.5 fL Nucleated Red Blood Cells 0.0 0.0-0.19 % Immature Granulocyte % (Auto) 0.4 0-1 % Neutrophils (%) (Auto) 77.1 H 40.0-77.0 % Lymphocytes (%) (Auto) 13.1 L 21.0-51.0 % Monocytes (%) (Auto) 8.3 3.0-13.0 % Eosinophils (%) (Auto) 0.7 0.0-8.0 % Basophils (%) (Auto) 0.4 0.0-5.0 % Neutrophils # (Auto) 10.5 H 1.8-7.7 K/uL Lymphocytes # (Auto) 1.8 1.0-4.8 K/uL Monocytes # (Auto) 1.1 H 0.1-1.0 K/uL Eosinophils # (Auto) 0.10 0.00-0.70 K/uL Basophils # (Auto) 0.05 0.00-0.20 K/uL Absolute Immature Granulocyte (auto 0.06 0-1 K/uL Chemistry Labs: Test 09/08/24 08:43 09/08/24 03:25 09/07/24 03:59 09/06/24 18:27 Range/Units Whole Blood Glucose 151 H 70-110 MG/DL Sodium Level 140 136-145 mmol/L Potassium Level 3.9 3.5-5.1 mmol/L Chloride Level 105 101-111 mmol/L Carbon Dioxide Level 30 21-32 mmol/L Blood Urea Nitrogen 12 7-18 mg/dL Creatinine 0.9 0.5-1.3 mg/dL Glomerular Filtration Rate Calc 101 >90 mL/min Random Glucose 130 H 70-105 mg/dL Total Calcium 8.1 L 8.5-10.1 mg/dL Ionized Calcium 1.03 L 1.15-1.33 MMOL/L Phosphorus Level 4.3 2.5-4.9 mg/dL Magnesium Level 1.50 L 1.80-2.40 mg/dL Total Bilirubin 0.6 0.2-1.0 mg/dL Aspartate Amino Transf (AST/SGOT) 356 H 10-37 U/L Alanine Aminotransferase (ALT/SGPT) 88 H 12-78 U/L Alkaline Phosphatase 73 50-136 U/L B-Type Natriuretic Peptide 334 H 0-100 pg/mL Total Protein 7.7 6.0-8.3 g/dL Albumin 3.8 3.5-5.0 g/dL Triglycerides Level 105 30-200 mg/dL Cholesterol Level 269 H <200 mg/dL LDL Cholesterol 186 H 0-99 mg/dL HDL Cholesterol 47 29-71 mg/dL Thyroid Stimulating Hormone (TSH) 1.09 0.36-3.74 uIU/mL Hemoglobin A1c 5.2 4.0-6.0 % Estimated Average Glucose (eAG) 103 70-126 mg/dL Troponin I High Sensitivity 80167 *H 4-75 ng/L Coagulation Labs: Test 09/08/24 02:54 Range/Units Prothrombin Time 11.1 9.6-11.6 SEC Prothromb Time International Ratio 1.05 0.85-1.15 Activated Partial Thromboplast Time 25.6 L 26.3-35.5 SEC DIAGNOSTICS / RADIOLOGY RESULTS: [ IMAGING REPORT Signed PATIENT: FROILAN RIVERA MR#: [id number] : 1970 SEX: M AGE: 53 LOCATION: 2CV ORDER 2300 STATUS: ADM IN REPORT#: [id number] SERVICE 0400 REASON: s/p CABG ORDERING PHYSICIAN: TAYO RATLIFF MD PROCEDURE: CXR1VW - CHEST 1VW Exam Type: CHEST 1VW Clinical Information: s/p CABG Comparison: None Findings and impression: Status post endotracheal and nasogastric extubation. No other interval changes. DICTATED BY: NELSON PINA MD DATE: 09/08/24935 ELECTRONICALLY SIGNED BY: NELSON PINA MD DATE: 09/08/24938 PATIENT: FROILAN RIVERA MR#: [id number] : 1970 SEX: M AGE: 53 LOCATION: 2CV ORDER 1726 STATUS: ADM IN REPORT#: [id number] SERVICE 1723 REASON: preop CABG ORDERING PHYSICIAN: TAYO RATLIFF MD PROCEDURE: ECHO [facility] - ECHO 2-D COMPLETE APPROVED REPORT EXAM: Two-dimensional and M-mode echocardiogram with Doppler and color Doppler. INDICATION ICD: preop CABG 2D Dimensions RVDd 4.0 cm LVEF(%) 76.8 (>50%) LVED Vol(simp.) 74.0 mL IVSd 1.1 (0.7-1.1cm) FS(%) 45 % LVES Vol(simp.) 43.0 mL LVDd 4.1 (3.8-5.6cm) LA (2D) 2.3 (1.6-4.0cm) LVEF(%, simp.) 41 % PWd 1.4 (0.7-1.1cm) Ao Root(2D) 3.2 (2.0-3.7cm) LA ESV INDEX (BP) 9.65 mL/m2 LVDs 2.2 (2.5-4.0cm) LVOT diam 2.1 (1.8-2.4cm) IVC diam 1.5 cm Deformation Strain Apical 4 -6.5 % Apical 2 -6.5 % Apical 3 -6.3 % Global Strain -6.4 % M-Mode Dimensions EPSS 0.7 cm LA (MM) 2.1 (1.6-4.0cm) Ao Root(MM) 3.0 (2.0-3.7cm) Aortic Valve AoV Vmax 0.9 m/s Ao Peak GR 2.9 mmHg LVOT Vmax 0.7 m/s AoV VTI 0.1 m Ao Mean GR 1.6 mmHg LVOT VTI 0.13 m KAYODE (VMAX) 3.08 cm2 KAYODE (VTI) 3.1 cm2 Mitral Valve MV E Vmax 37.5 cm/s DECEL Time 138 ms MV A Vmax 58.0 cm/s P 1/2 T 35 ms E/A ratio 0.6 MVA (PHT) 6.4 cm2 TDI E/E' Medial 9.5 E/E' Lateral 10.9 Medial E' Peak V 3.96 cm/s Lateral E' Peak V 3.43 cm/s Left Ventricle Left ventricular cavity size is normal. There is normal left ventricular wall thickness. LVEF is 40-45%. The left ventricular diastolic function is normal. Right Ventricle The right ventricle is normal size. Right ventricular systolic function is mildl y reduced. Atria The left atrium is small. The right atrium size is normal. Aortic Valve The aortic valve is normal in structure and function. No aortic regurgitation is present. There is no aortic valvular stenosis. Mitral Valve The mitral valve is normal in structure and function. There is no mitral valve regurgitation noted. There is no mitral valve stenosis. Tricuspid Valve The tricuspid valve is normal in structure and function. There is no tricuspid valve regurgitation noted. Pulmonic Valve The pulmonary valve is normal in structure and function. There is no pulmonic valvular regurgitation. Great Vessels The aortic root is normal in size. The IVC is normal in size and collapses >50% with inspiration. Pericardium No pericardial effusion. Conclusion Left ventricular cavity size is normal. LVEF is 40-45%. The left ventricular diastolic function is normal. The right ventricle is normal size. Right ventricular systolic function is mildly reduced. The left atrium is small. The right atrium size is normal. No valvular pathology. No pericardial effusion. DICTATED BY: MARGARITA PEMBERTON MD DATE: 09/07/24 0819 ELECTRONICALLY SIGNED BY: MARGARITA PEMBERTON MD DATE: 09/07/[address] surgeon recommendations Follow cardiology recommendations Multimodal pain management Monitoring H&H Monitor chest tube output Chest x-ray in the morning Start SBT's as tolerated Transfuse if absolutely necessary to keep hemoglobin above 8 Maintain O2 sats greater than 92% Incentive spirometry q.1 hour , 10 times. Glycemic control with goal of 80-180 Referral for cardiac rehabilitation Speech to eval once patient is extubated monitor electrolytes: K Goal of 4 Magnesium goal of 2 Replace accordingly NEURO: Minimize central acting medications as possible. Fall Precautions. Well lighted room through the day and minimize interruptions through the night to prevent acute delirium. PULMONARY: Supplemental 02 as needed Titrate Fio2 to keep Spo2 > or = 90% DuoNebs and CPT as needed IS hourly while awake for pulmonary hygiene Out of bed to chair as tolerated VAP Bundle CARDIOVASCULAR: Follow hemodynamics. Titrate vasopressor to keep MAP >65 or systolic blood pressure >95mmHg DRIPS: Levophed Epinephrine Nitroglycerin LINES: Right IJ Chest tube Mott catheter Atrial line GI & NUTRITION: Continue nutritional support Aspirations precautions Prokinetic agents and laxatives as needed Speech to eval and treat KIDNEYS & ELECTROLYTES: Strict monitoring of intake and output Daily weights Avoid nephrotoxic agents Monitor electrolytes and replace as needed Goal urine output of 30mL/hr or 0.5mL/kg/hr Urine output: [ ] Fluid Balance: [ ] ENDOCRINE: Maintain blood glucose between 100-180 at all times. Insulin sliding scale for blood glucose management INFECTIOUS DISEASE: Trend temperature. Thompson-culture if febrile. Micro: [ ] Antibiotics: [ ] HEMATOLOGY & COAGULATION: Monitor H&H. Keep Hgb > 7 Transfuse 1 unit of PRBC for Hgb < 7 Transfuse 1 pack of platelets of platelets < 20, 000 Watch for any signs and symptoms of bleeding SKIN: Pressure ulcer prevention per facility protocol Rehab: PT/OT Prophylaxis: GI: Pepcid DVT: ELSA Carr per CV surgeon. Code Status: Full Resuscitation Disposition: ICU Other: Total patient care time exceeds 35 minutes excluding all procedures. Case was discussed and seen with my supervising physician. The above plan was formulated and agreed upon. ATTESTATION BY PHYSICIAN I reviewed the documentation, medical decision making, and treatment plan as noted by the mid-level provider above. I agree with the findings and plan of care. Fadi Hall MD, NELLY J ARNP September 08, 2024 09:05
[2024-09-08] MEDS: furoSEMIDE 20MG VIAL IV SCH (09:27)
--- NOTE | 2024-09-08 09:39 | HMCIMG ---
Exam Type: CHEST 1VW Clinical Information: s/p CABG Comparison: None Findings and impression: Status post endotracheal and nasogastric extubation. No other interval changes.
[2024-09-08] MEDS: ASPIRIN 81MG CHEW TAB ONE (10:07)
--- NOTE | 2024-09-08 10:15 | PN ---
[facility] PROGRESS NOTE Date of Service: September 08, 2024 Time of Service: 10:13 SUBJECTIVE: Mr. Merritt is a 53-year-old male with a history of tobacco and cocaine abuse who [place] [facility] [facility] for evaluation of CABG for the diagnosis of multivessel disease. Per chart review the patient presented to [facility] on 09/06/2024 with chest pain that started at 1:00 a.m.. The patient reported he had cocaine on 09/05/2024 night. EKG showed sinus rhythm with a recent OH in the anterior septal lead. His troponins were markedly elevated. The patient was evaluated by Dr. Ange Bro, analytical research program manager Per Echo done on 09/06/2024: Left ventricular systolic dysfunction is [id number] decreased. There was anterior anterolateral, anteroseptal wall hypokinesis LVEF is 35-40%. Transmitral Doppler flow pattern suggestive of impaired LV relaxation. The patient underwent a left heart catheterization on 09/06/2024, findings: Lef t main- It bifurcates into LAD and left circumflex arteries. It has proximal 40% disease. 2. LAD: It is 100% chronic total occlusion of the proximal segment of LAD. The distal segment was filling partially via collaterals coming from the right coronary artery. 3. Left circumflex artery: It has 2 obtuse marginal branches. There is 99% disease in the mid segmental of the left circumflex artery. 4. RCA: It is the dominant vessel. There is proximal 40% disease. There is a mid RCA 80% disease. Distal RCA is also has 20% disease. Right PLB also has diffuse 20% disease. 5. LVED P: 60 mm Hg. Patient was transferred from [facility] to [facility] for the purpose of coronary artery bypass graft by Cardiothoracic surgeon. Today the patient is alert oriented x3, hemodynamically stable, NPO, awaiting to be taken to the operating room today. Family members at bedside. 09/08 patient is seen and examined bedside, status post CABG, postoperative day 1. Patient comfortable, in bed, chest tube in place, remains on insulin drip, getting antibiotics, magnesium supplementation IV, he is on epinephrine, Levophed drip. He is alert oriented x3, denies chest pain, no shortness a breath, no nausea, no vomiting. REVIEW OF SYSTEMS 12-point ROS reviewed with the patient. All pertinent positives mentioned above. Otherwise negative, nonpertinent, noncontributory. PHYSICAL EXAM GENERAL APPEARANCE: The patient is awake, alert, and oriented, in no acute cardiopulmonary distress. NEUROLOGICAL: Cranial nerves II-XII grossly intact. Motor is 5/5 in bilateral upper and lower extremities proximal to distal. No sensory deficits. HEENT: Face is symmetric. Pupils are equal and reactive. Extraocular movements are intact. NECK: Supple. No JVD. No thyromegaly. No submental, submandibular, pre- /postauricular, occipital or supraclavicular lymphadenopathy. CHEST: Normal chest expansion. No Telemetry. LUNGS: Absence of any rales, rhonchi or any wheezing. Chest tube in place CARDIOVASCULAR: Regular. S1 and S2 normal. No appreciable rubs, murmurs or gallops. ABDOMEN: Soft, nontender, and nondistended. There is no rebound, voluntary guarding, or rigidity. : Deferred. No Mott. EXTREMITIES: Non-edematous and not cyanotic. No clubbing. Good capillary refill. SKIN: No skin breakdown. Vital Signs (last 8hr) Date Time Temp Pulse Resp B/P (MAP) Pulse Ox O2 Delivery O2 Flow Rate FiO2 09/08/24 08:52 98.4 Nasal Cannula 2.0 28 09/08/24 08:30 87 17 104/53 (70) 97 09/08/24 08:15 90 10 106/52 (70) 97 09/08/24 08:00 92 97/52 (67) 96 09/08/24 07:45 90 9 80/46 (57) 97 106/62 (77) 09/08/24 07:30 89 107/52 (70) 97 09/08/24 07:15 89 29 85/47 (60) 96 09/08/24 07:00 92 20 109/55 (73) 97 09/08/24 06:49 92 18 N/Cannula Low lpm 2.0 28 09/08/24 06:45 91 26 119/56 (77) 96 28 09/08/24 06:30 97 28 109/56 (73) 93 09/08/24 06:15 97 28 109/56 (73) 93 21 09/08/24 06:00 102 13 97/56 (70) 97 28 107/57 (74) 09/08/24 05:45 101 20 106/62 (77) 97 09/08/24 05:30 100 20 117/59 (78) 97 09/08/24 05:15 103 23 116/64 (81) 97 09/08/24 05:00 98 23 128/63 (84) 97 28 114/67 (83) 09/08/24 04:45 100 24 129/63 (85) 96 09/08/24 04:30 99 22 131/64 (86) 97 09/08/24 04:15 101 20 124/66 (85) 98 09/08/24 04:14 99.0 Nasal Cannula 2.0 28 09/08/24 04:04 97 Nasal Cannula* 2 28 09/08/24 04:00 100 22 115/59 (77) 97 28 89/53 (65) 09/08/24 03:45 99 22 114/61 (78) 97 09/08/24 03:30 97 20 125/62 (83) 98 09/08/24 03:15 98 21 123/63 (83) 98 09/08/24 03:00 101 27 109/59 (76) 98 28 99/62 (74) 09/08/24 02:45 97 23 108/60 (76) 98 09/08/24 02:30 97 25 118/64 (82) 98 09/08/24 02:15 100 20 114/64 (81) 98 LABS: Laboratory: Test 09/08/24 08:43 09/08/24 03:25 09/08/24 02:54 09/07/24 16:46 Range/Units Whole Blood Glucose 151 H 70-110 MG/DL Sodium Level 140 136-145 mmol/L Potassium Level 3.9 3.5-5.1 mmol/L Chloride Level 105 101-111 mmol/L Carbon Dioxide Level 30 21-32 mmol/L Blood Urea Nitrogen 12 7-18 mg/dL Creatinine 0.9 0.5-1.3 mg/dL Glomerular Filtration Rate Calc 101 >90 mL/min Random Glucose 130 H 70-105 mg/dL Total Calcium 8.1 L 8.5-10.1 mg/dL Ionized Calcium 1.03 L 1.15-1.33 MMOL/L Phosphorus Level 4.3 2.5-4.9 mg/dL Magnesium Level 1.50 L 1.80-2.40 mg/dL White Blood Count 15.4 #H 4.8-10.8 K/uL Red Blood Count 3.91 L 4.50-6.20 MIL/uL Hemoglobin 12.5 L 14.0-18.0 g/dL Hematocrit 35.0 L 42-54 % Mean Corpuscular Volume 89.5 79-99 fL Mean Corpuscular Hemoglobin 32.0 27.0-33.0 pg Mean Corpuscular Hemoglobin Concent 35.7 32.0-36.0 g/dL Red Cell Distribution Width 13.2 11.0-15.5 % Platelet Count 225 130-400 K/uL Mean Platelet Volume 9.6 7.5-10.5 fL Nucleated Red Blood Cells 0.0 0.0-0.19 % Prothrombin Time 11.1 9.6-11.6 SEC Prothromb Time International Ratio 1.05 0.85-1.15 Activated Partial Thromboplast Time 25.6 L 26.3-35.5 SEC Blood Gas Specimen Type Arterial Arterial Blood pH 7.392 7.350-7.450 Arterial Blood Partial Pressure CO2 43 35-48 mmHg Arterial Blood Partial Pressure O2 161.3 H 83.0-108.0 mmHg Arterial Blood HCO3 25.8 21.0-28.0 mmol/L Arterial Blood Oxygen Saturation 98.6 H 94.0-98.0 % Arterial Blood Base Excess 0.6 -2.0-3.0 mmol/L Hemoglobin (Blood Gas) 13.9 13.5-17.5 g/dL Sodium (Blood Gas) 142 136-145 MMOL/L Bedside Potassium (Blood Gas) 4.1 3.4-4.5 MMOL/L Bedside Chloride (Blood Gas) 105 98-107 MMOL/L Bedside Glucose (Blood Gas) 171 H 65-95 MG/DL Bedside Ionized Calcium (Blood Gas) 1.20 1.15-1.33 MMOL/L Bedside Lactic Acid (Blood Gas) 3.43 *H 0.36-0.75 MMOL/L Blood Gas Temperature 37.0 35.5-37.0 CELSIUS Blood Gas Flow-by 10.00 0.00-15.00 L/min Blood Gas Vent Mode CAFM ROOM AIR FiO2 40.0 % Blood Gas Specimen Comment A-LINE GUEVARA Test 09/07/24 15:45 5/6/25 15:08 09/07/24 03:59 09/06/24 18:27 Range/Units Blood Gas PEEP 5 cm H2O Blood Gas Respiration Rate 12.0 min. Blood Gas Tidal Volume 700 ml Total Bilirubin 0.6 0.2-1.0 mg/dL Aspartate Amino Transf (AST/SGOT) 356 H 10-37 U/L Alanine Aminotransferase (ALT/SGPT) 88 H 12-78 U/L Alkaline Phosphatase 73 50-136 U/L B-Type Natriuretic Peptide 334 H 0-100 pg/mL Total Protein 7.7 6.0-8.3 g/dL Albumin 3.8 3.5-5.0 g/dL Triglycerides Level 105 30-200 mg/dL Cholesterol Level 269 H <200 mg/dL LDL Cholesterol 186 H 0-99 mg/dL HDL Cholesterol 47 29-71 mg/dL Thyroid Stimulating Hormone (TSH) 1.09 0.36-3.74 uIU/mL Immature Granulocyte % (Auto) 0.4 0-1 % Neutrophils (%) (Auto) 77.1 H 40.0-77.0 % Lymphocytes (%) (Auto) 13.1 L 21.0-51.0 % Monocytes (%) (Auto) 8.3 3.0-13.0 % Eosinophils (%) (Auto) 0.7 0.0-8.0 % Basophils (%) (Auto) 0.4 0.0-5.0 % Neutrophils # (Auto) 10.5 H 1.8-7.7 K/uL Lymphocytes # (Auto) 1.8 1.0-4.8 K/uL Monocytes # (Auto) 1.1 H 0.1-1.0 K/uL Eosinophils # (Auto) 0.10 0.00-0.70 K/uL Basophils # (Auto) 0.05 0.00-0.20 K/uL Absolute Immature Granulocyte (auto 0.06 0-1 K/uL Hemoglobin A1c 5.2 4.0-6.0 % Estimated Average Glucose (eAG) 103 70-126 mg/dL Troponin I High Sensitivity 39825 *H 4-75 ng/L Current Medications Medications (Trade) Dose Ordered Sig/Georgina Route PRN Reason Start Time Stop Time Status Last Admin Dose Admin Acetaminophen (TYLenol 325MG TAB) 650 mg Q4H PRN PO Temp >38.3C(AFTER EXTUBATION) 09/07/24 12:00 10/07/24 11:59 Acetaminophen (TYLenol 325MG TAB) 650 mg Q6H PRN PO FEVER/MILD PAIN LEVEL 1-3 09/06/24 19:00 09/07/24 11:46 DC Acetaminophen (TYLenol 325MG TAB) 650 mg Q6H PRN PO MILD PAIN (1-3) 09/07/24 12:00 10/07/24 11:59 09/07/24 19:44 650 MG Acetaminophen (TYLenol 650MG SUPPOSITORY) 650 mg Q4H PRN RC Temp >38.3C WHILE INTUBATED 09/07/24 12:00 10/07/24 11:59 Acetaminophen (TYLenol 650MG SUPPOSITORY) 650 mg Q6H PRN RC FEVER / MILD PAIN 1-3 IF NPO 09/06/24 19:00 09/07/24 11:46 DC Acetaminophen (acetaMINOPHEN) 1,000 mg Q6H6 IV 09/07/24 16:00 09/08/24 15:59 09/08/24 06:49 1,000 MG Albumin Human 250 ml @ 0 mls/hr AD PRN IV IF HEMODYNAMICALLY UNSTABLE 09/07/24 12:00 Aminocaproic Acid 80545 mg/Sodium Chloride 310 ml @ 25 mls/hr AD IV 09/07/24 12:00 09/07/24 12:04 DC Aminocaproic Acid 34824 mg/Sodium Chloride 480 ml @ 0 mls/hr AD PRN IV BLEEDING CONTROL 09/07/24 07:00 10/07/24 06:59 Aspirin (Aspirin 81mg Chew Tab) 81 mg DAILY PO 09/08/24 10:30 10/08/24 10:29 Atorvastatin Calcium (LIPItor 40MG) 40 mg HS PO 09/06/24 21:00 10/06/24 20:59 09/07/24 20:08 40 MG Calcium Gluconate 1 gm/Sodium Chloride 60 ml @ 200 mls/hr AD PRN IV HYPOCALCEMIA 09/07/24 12:00 10/07/24 11:59 09/08/24 03:52 200 MLS/HR Cefazolin Sodium (ANCEF 1 gm vial) 2 gm ONCALL IVP 09/06/24 17:30 09/07/24 08:00 DC Cefazolin Sodium (Ancef) 2 gm ONCALL IVP 09/07/24 08:30 09/07/24 11:50 DC 09/07/24 12:00 2 GM Cefazolin Sodium (Ancef) 2 gm Q8H IVPB 09/07/24 17:00 09/08/24 09:01 DC 09/08/24 09:27 2 GM Dexmedetomidine/ Sodium Chloride (PRECEdex 400MCG/ 100ML-NS) 400 mcg PROTOCOL IV 09/07/24 12:00 09/08/24 11:59 Dextrose (D50w) 50 ml AD PRN IV HYPOGLYCEMIA PROTOCOL 09/07/24 12:00 10/07/24 11:59 Docusate Sodium (COLace 100MG CAP) 100 mg BID PO 09/07/24 21:00 10/07/24 20:59 09/08/24 09:27 100 MG Docusate Sodium (COLace 100MG CAP) 100 mg BID PRN PO c 09/06/24 19:00 09/07/24 11:46 DC Enoxaparin Sodium (Lovenox) 30 mg DAILY SQ 09/10/24 09:00 10/10/24 08:59 Epinephrine HCl 10 mg/Sodium Chloride 250 ml @ 0 mls/hr AD PRN IV TITRATE 09/07/24 07:00 10/07/24 06:59 Epinephrine HCl 10 mg/Sodium Chloride 250 ml @ 0 mls/hr AD PRN IV POST-OP CARDIOVASCULAR ORDERS 09/07/24 12:00 09/07/24 12:04 DC Famotidine (Pepcid 20mg Vial) 20 mg BID IV 09/07/24 21:00 10/07/24 20:59 09/08/24 09:27 20 MG Furosemide (LASix 20MG TAB) 20 mg Q12H PO 09/09/24 09:00 10/09/24 08:59 Furosemide (LASix 20MG VIAL) 20 mg Q12H IV 09/08/24 09:00 09/09/24 08:59 09/08/24 09:27 20 MG Glucagon (Glucagon 1mg Kit) 1 mg AD PRN IM HYPOGLYCEMIA PROTOCOL 09/07/24 12:00 10/07/24 11:59 Heparin Sodium/ Dextrose 250 ml @ 0 mls/hr PROTOCOL IV 09/06/24 18:00 09/07/24 11:46 DC Insulin Human Regular (humuLIN R 100 UNIT/ML 3ML) INSULIN SLIDING SCAL... Q6H6 SQ 09/07/24 00:00 09/07/24 11:46 DC Insulin Human Regular 100 unit/ Sodium Chloride 100 ml @ 0 mls/hr AD IV 09/07/24 12:00 09/09/24 11:59 Labetalol HCl (TRANdate 20MG SYG) 10 mg Q2H PRN IV SBP GREATER THAN 160 09/06/24 19:00 09/07/24 11:46 DC Lactated Ringer's 1,000 ml @ 50 mls/hr Q20H IV 09/07/24 08:00 09/07/24 11:46 DC Lactulose (Constulose 20gm/ 30ml Udcup) 20 gm BID PRN PO CONSTIPATION 09/07/24 12:00 10/07/24 11:59 Lactulose (Constulose 20gm/ 30ml Udcup) 20 gm Q6H PRN PO CONSTIPATION 09/06/24 19:00 09/07/24 12:06 DC Magnesium Hydroxide (Milk Of Magnesium 30ml) 30 ml DAILY PRN PO CONSTIPATION 09/07/24 12:00 10/07/24 11:59 Magnesium Sulfate 50 ml @ 12.5 mls/hr AD PRN IV MAG LEVEL LESS THAN 2.0 09/07/24 12:00 10/07/24 11:59 09/08/24 07:04 12.5 MLS/HR Metoprolol Tartrate (loprESSOR) 12.5 mg BID PO 09/09/24 09:00 10/09/24 08:59 Morphine Sulfate (morPHINE 2MG SYG) 0.5 mg Q2H PRN IV MODERATE PAIN (4-6) 09/07/24 12:00 09/08/24 11:59 Morphine Sulfate (morPHINE 2MG SYG) 1 mg Q2H PRN IV SEVERE PAIN (7-10) 09/07/24 12:00 09/08/24 11:59 09/07/24 14:38 1 MG Morphine Sulfate (morPHINE 4MG SYG) 4 mg ONCE IM 09/06/24 21:30 09/06/24 23:59 DC 09/06/24 21:30 4 MG Nitroglycerin/ Dextrose 0 ml @ 0 mls/hr AD IV 09/07/24 12:00 09/10/24 11:59 09/07/24 14:56 3 MLS/HR Norepinephrine Bitartrate 250 ml @ 0 mls/hr AD PRN IV TITRATE 09/07/24 07:00 10/07/24 06:59 Norepinephrine Bitartrate 8 mg/ Dextrose 250 ml @ 0 mls/hr AD PRN IV POST-OP CARDIOVASCULAR ORDERS 09/07/24 12:00 09/07/24 12:04 DC Ondansetron HCl (zoFRAN 4MG INJ) 4 mg Q6H PRN IV NAUSEA/VOMITING 09/07/24 12:00 10/07/24 11:59 Ondansetron HCl (zoFRAN 4MG INJ) 4 mg Q6H PRN IVP NAUSEA/VOMITING 09/06/24 19:00 09/07/24 11:46 DC Pantoprazole Sodium (PROTonix 40MG TAB) 40 mg DAILY PO 09/07/24 09:00 09/07/24 11:46 DC Potassium Phosphate 250 ml @ 42 mls/hr AD PRN IV LOW PHOS LEVEL 09/07/24 12:00 10/07/24 11:59 Potassium Chloride 100 ml @ 100 mls/hr AD PRN IV HYPOKALEMIA 09/07/24 12:00 10/07/24 11:59 09/08/24 05:11 100 MLS/HR Propofol 100 ml @ 0 mls/hr AD PRN IV SEDATION 09/07/24 12:00 09/11/24 11:59 Sodium Bicarbonate (Sodium Bicarb 50meq 50ml Vial) 50 meq AD PRN IV OTHER[SEE DOSING INSTRUCTIONS] 09/07/24 12:00 09/10/24 11:59 09/07/24 15:57 50 MEQ Sodium Chloride 500 ml @ 0 mls/hr AD IV 09/07/24 12:00 10/07/24 11:59 Sodium Chloride 1,000 ml @ 10 mls/hr ONCE IV 09/07/24 12:00 09/08/24 11:59 09/07/24 14:39 10 MLS/HR Sodium Chloride (NS Flush 10ml) 10 ml Q8H PRN IVP IV LINE FLUSH 09/07/24 12:00 10/07/24 11:59 Tramadol HCl (UltRAM) 25 mg Q6H PRN PO MODERATE PAIN (4-6) 09/07/24 12:00 09/12/24 11:59 Tramadol HCl (UltRAM) 50 mg Q6H PO 09/06/24 21:30 09/07/24 02:59 DC Tramadol HCl (UltRAM) 50 mg Q6H PRN PO MODERATE PAIN (4-6) 09/07/24 03:00 09/07/24 11:46 DC Tramadol HCl (UltRAM) 50 mg Q6H PRN PO SEVERE PAIN (7-10) 09/07/24 12:00 09/12/24 11:59 09/08/24 07:01 50 MG DIAGNOSTICS / RADIOLOGY: [ ] ASSESSMENT: Non ST-elevation OH, POA status post CABG 09/07/24 Severe multivessel coronary artery disease, per left heart catheterization on 09/06/2024: 1. Left main- It bifurcates into LAD and left circumflex arteries. It has proximal 40% disease. 2. LAD: It is 100% chronic total occlusion of the proximal segment of LAD. The distal segment was filling partially via collaterals coming from the right coronary artery. 3. Left circumflex artery: It has 2 obtuse marginal branches. There is 99% disease in the mid segmental of the left circumflex artery. 4. RCA: It is the dominant vessel. There is proximal 40% disease. There is a mid RCA 80% disease. Distal RCA is also has 20% disease. Right PLB also has diffuse 20% disease. 5. LVED P: 60 mm Hg. Left ventricular systolic dysfunction is [id number] decreased, per echo on 09/06/2024 Anterior anterolateral, anteroseptal wall hypokinesis LVEF is 35-40%, per echo on 09/06/2024Transmitral Doppler flow pattern suggestive of impaired LV relaxation. Diastolic dysfunction Acute hypoxemic respiratory failure, POA Leukocytosis Hyperglycemia Transaminitis Elevated BNP Cocaine abuse Tobacco abuse PLAN: Patient remains admitted to the ICU Status post CABG postoperative day 1. Continue with chest tube in place, further recommendations per Cardiothoracic surgeon Remains on Levophed and epinephrine drip, wean as tolerated Continue IV antibiotics Continue supplementation of electrolytes IV per protocol Continue to follow Cardiothoracic input and recommendations NEURO: Minimize central acting medications as possible. Fall Precautions. Well lighted room through the day and minimize interruptions through the night to prevent acute delirium. PULMONARY: Supplemental 02 as needed BiPAP as necessary, for respiratory distress Titrate Fio2 to keep Spo2 > or = 90% DuoNebs and CPT as needed IS hourly while awake for pulmonary hygiene prn Out of bed to chair as tolerated Maintain aspiration precautions at all times CARDIOVASCULAR: Follow hemodynamics. Vital signs per facility protocol GI & NUTRITION: Continue nutritional support Aspirations precautions Prokinetic agents and laxatives as needed KIDNEYS & ELECTROLYTES: Strict monitoring of intake and output Daily weights Avoid nephrotoxic agents Monitor electrolytes and replace as needed Goal urine output of 30mL/hr or 0.5mL/kg/hr Medications to be dosed according to renal function. Avoid contrast if possible ENDOCRINE: Maintain blood glucose between 100-180 at all times. Insulin sliding scale for blood glucose management Hypoglycemia and hyperglycemia protocol in place INFECTIOUS DISEASE: Trend temperature, WBC and procalcitonin level Follow cultures, deescalate antibiotics as soon as possible. Panculture if new onset fever HEMATOLOGY & COAGULATION: Monitor H&H. Keep Hgb > 7 Transfuse 1 unit of PRBC for Hgb < 7 Transfuse 1 pack of platelets of platelets < 20, 000 Watch for any signs and symptoms of bleeding SKIN: Pressure ulcer prevention per facility protocol Specialty mattress as needed ORTHO/REHAB Continue PT/OT PRN: MEDICATIONS Tylenol 650 mg po every 4 hrs for fever zofran 4 mg IV every 6 hrs for n/v Hydralazine 5 mg IV every 4 hrs systolic pressure > 160 bowel regiment: lactulose 20 gm PO BID PRN constipation Supportive measures: Continue GI and DVT prophylaxis Disposition: Pending CABG today. All questions answered time spent: > 35 min KYLE RIVERA MD September 08, 2024 10:15
[2024-09-08] MEDS: ASPIRIN 81MG CHEW TAB PO SCH (10:30)
--- NOTE | 2024-09-08 12:11 | EKG ---
[facility] Test Date: 2024-09-08 Test Time: 12:09:45 Pat Name: FROILAN RIVERA Department: 2CV Room: 212 1 Gender: M Sourcing Analyst: [id number] : [id number] Requested By: MC MAURO Order Number: [id number] Reading MD: Lokesh Pérez Measurements Intervals [place] Rate: 90 P: 4 DE: 158 QRS: -22 QRSD: 92 T: 67 QT: 330 QTc: 403 Interpretive Statements Normal sinus rhythm Anterolateral infarct , possibly acute Inferior injury pattern ACUTE [place] / STEMI Compared to ECG 09/07/2024 16:16:03 Sinus tachycardia no longer present Myocardial infarct finding still present Electronically Signed On 09-08-2024 21:35:31 CDT by Lokesh Pérez Please click the below link to view image of tracing.
[2024-09-08] MEDS: ALBUMIN (HUMAN) 5% 250 ML IV PRN (14:22)
[2024-09-08] MEDS: ketOROlac 30MG VIAL (30MG/ML) IVP STA (17:44)
[2024-09-08] MEDS: NOREPINEPHRIN 8MG/250ML NS 250 ML IV PRN (18:59)
[2024-09-09] VITALS (79 sets, daily range): BP systolic 80–131; BP diastolic 37–72; PULSE 70–100; RESP 8–33; TEMP 97.9–100; O2SAT 95–98
[2024-09-09 04:43] LABS: HEMATOCRIT 30.1 % (42-54); MEAN CORPUSCULAR HGB CONC 34.2 g/dL (32.0-36.0); MEAN CORPUSCULAR VOLUME 90.7 fL (79-99); RED BLOOD CELL COUNT(AUTO) 3.32 MIL/uL (4.50-6.20); RED CELL DISTRIBUTION WIDTH 13.2 % (11.0-15.5)
[2024-09-09 05:02] LABS: ALBUMIN 2.7 g/dL (3.5-5.0); BILIRUBIN,TOTAL 0.5 mg/dL (0.2-1.0); CREATININE 0.8 mg/dL (0.5-1.3); POTASSIUM 4.1 mmol/L (3.5-5.1)
[2024-09-09] MEDS: INSULIN humuLIN R 100 UNIT/ML 3ML SQ SCH (06:48)
--- NOTE | 2024-09-09 07:17 | PN ---
[facility] Cardiology Progress Note CARDIOLOGY PROGRESS NOTE SEPTEMBER 09, 2024 Problems: 1. Recent anteroseptal myocardial infarction in the setting of cocaine abuse 2. Multivessel CAD with total occlusion of the proximal LAD filling via collaterals and LV ejection fraction of 35-40% status post aortocoronary bypass graft surgery with a DAMON graft to the LAD saphenous graft to the 3rd obtuse marginal artery and saphenous graft to the right coronary artery. 3. Dyslipidemia Blood pressure is ranging between 101 10 systolic. Heart rate has been in the 90s[place] [id number] hemoglobin 10.3 platelet count [id number]. Potassium 4.1 BUN 11 creatinine 0.8. The patient continues on aspirin atorvastatin Lovenox for DVT prophylaxis famotidine oral furosemide insulin scale metoprolol tartrate and tramadol p.r.n.. Chest tube is in place. Chest x-ray is a portable film shows cardiomegaly. Minimal blunting of the left costophrenic angle. No pneumothorax. The patient is currently up in the chair with a good breath sounds bilaterally. He has some incisional pain. He has requested something for sleep. He is still on intravenous nitroglycerin. Anticipate this will be tapered off today. Depending on blood pressure in the next 24 hours we can consider the addition of an CINTHIA inhibitor or Arb to his regimen MATY DUNAWAY MD September 09, 2024 07:17
--- NOTE | 2024-09-09 08:42 | PN ---
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 Diastolic dysfunction Leukocytosis Hyperglycemia Transaminitis Polysubstance abuse ( Cocaine Tobacco and etoh) Obesity BMI 30.9 INTERVAL HISTORY: Awake alert and oriented x3. No major overnight events. Patient reports trouble sleeping during the night. Currently weaning off nitroglycerin drip at 40 mcg/minute. Blood pressure 110/62 heart rate in the 80s saturating 97% with 2 L via nasal cannula and afebrile. Urine output 2.2 L with a balance of positive 258 mL chest tube drained 180 mL. On laboratory white count is 12 trending down as expected H&H is 10.3/30.1 slightly decreased from yesterday. Chemistry unremarkable. On chest x-ray mild bilateral pulmonary vascular congestion chest tube to left no pneumothorax present central line in good position. REVIEW OF SYSTEMS: Const: [no fever, fatigue, or weight changes] Eyes:[ no recent vision problems] ENT: [No congestion, ear pain, or sore throat] C/V: [no chest pain, palpitations or edema]- + mid sternal incision line tenderness Resp: [No cough, congestion, wheezing , or Shortness of breath] GI: [No abdominal pain, nausea, vomiting, constipation, or diarrhea] : [No incontinence of or dysuria] M/S: [No joint or pain swelling] Skin: [No rash] Neuro: [no headache, focal numbness, or weakness, dizziness or seizures] Psych: Reports trouble sleeping Heme: [no abnormal bruising or bleeding] Lymph: [no swollen glands] PHYSICAL EXAM: GENERAL: alert, weak, awake oriented x 3 HEENT: EOMI, Sclera non icteric, moist mucosa NECK: Supple, no JVD, trachea midline right IJ CVC. LUNGS: Diminished breath sounds bilaterally. No wheezes. Chest tube in place. HEART: Regular rate and rhythm. Normal S1 and S2, without murmurs ABD: Abdomen soft, nontender. Bowel sounds present EXT: No clubbing cyanosis or edema NEURO: Alert and oriented to person, follows commands Vital Signs (last 8hr) Date Time Temp Pulse Resp B/P (MAP) Pulse Ox O2 Delivery O2 Flow Rate FiO2 09/09/24 08:00 97 Nasal Cannula* 2 28 09/09/24 07:46 93 18 N/Cannula Low lpm 2.0 28 09/09/24 07:45 89 8 83/44 (57) 95 09/09/24 07:44 90 16 106/45 (65) 96 111/46 (67) 09/09/24 07:30 91 17 108/48 (68) 94 09/09/24 07:15 88 17 94/45 (61) 96 09/09/24 07:00 93 8 105/49 (67) 96 09/09/24 06:45 83 99/42 (61) 96 09/09/24 06:44 90 17 90/41 (57) 95 99/37 (57) 09/09/24 06:30 94 17 102/45 (64) 95 09/09/24 06:00 94 18 112/48 (69) 96 09/09/24 05:45 97 16 104/51 (68) 95 118/56 (76) 09/09/24 05:15 99 16 118/52 (74) 96 09/09/24 05:00 99 14 119/51 (73) 96 09/09/24 04:59 126/52 09/09/24 04:45 98 14 125/53 (77) 97 09/09/24 04:44 97 20 113/48 (69) 97 114/60 (78) 09/09/24 04:30 96 18 123/52 (75) 98 09/09/24 04:15 100.0 98 20 122/56 (78) 96 09/09/24 04:00 100 15 112/57 (75) 97 09/09/24 03:45 99 18 112/54 (73) 97 108/54 (72) 09/09/24 03:30 99 14 120/57 (78) 97 09/09/24 03:15 99 20 116/55 (75) 97 09/09/24 03:00 97 16 97/45 (62) 97 09/09/24 03:00 98 Nasal Cannula* 2 28 09/09/24 02:45 96 20 114/56 (75) 97 103/61 (75) 09/09/24 02:43 97 18 N/Cannula Low lpm 2.0 28 09/09/24 02:30 97 17 109/56 (73) 97 09/09/24 02:15 97 18 113/55 (74) 97 09/09/24 02:00 97 18 118/56 (76) 97 09/09/24 01:45 94 18 119/56 (77) 98 100/62 (75) 09/09/24 01:30 95 16 126/56 (79) 97 09/09/24 01:15 93 17 131/57 (81) 98 09/09/24 01:00 93 19 114/53 (73) 98 09/09/24 00:45 89 16 111/53 (72) 99 104/61 (75) LABS: Hematology Labs: Test 09/09/24 04:21 Range/Units White Blood Count 12.0 H 4.8-10.8 K/uL Red Blood Count 3.32 L 4.50-6.20 MIL/uL Hemoglobin 10.3 L 14.0-18.0 g/dL Hematocrit 30.1 L 42-54 % Mean Corpuscular Volume 90.7 79-99 fL Mean Corpuscular Hemoglobin 31.0 27.0-33.0 pg Mean Corpuscular Hemoglobin Concent 34.2 32.0-36.0 g/dL Red Cell Distribution Width 13.2 11.0-15.5 % Platelet Count 156 # 130-400 K/uL Mean Platelet Volume 9.6 7.5-10.5 fL Nucleated Red Blood Cells 0.0 0.0-0.19 % Chemistry Labs: Test 09/09/24 06:02 09/09/24 04:21 09/08/24 03:25 Range/Units Whole Blood Glucose 105 70-110 MG/DL Sodium Level 136 136-145 mmol/L Potassium Level 4.1 3.5-5.1 mmol/L Chloride Level 103 101-111 mmol/L Carbon Dioxide Level 29 21-32 mmol/L Blood Urea Nitrogen 11 7-18 mg/dL Creatinine 0.8 0.5-1.3 mg/dL Glomerular Filtration Rate Calc 105 >90 mL/min Random Glucose 99 70-105 mg/dL Total Calcium 7.8 L 8.5-10.1 mg/dL Magnesium Level 2.00 1.80-2.40 mg/dL Total Bilirubin 0.5 0.2-1.0 mg/dL Aspartate Amino Transf (AST/SGOT) 81 H 10-37 U/L Alanine Aminotransferase (ALT/SGPT) 34 12-78 U/L Alkaline Phosphatase 47 L 50-136 U/L Total Protein 6.0 6.0-8.3 g/dL Albumin 2.7 L 3.5-5.0 g/dL Ionized Calcium 1.03 L 1.15-1.33 MMOL/L Phosphorus Level 4.3 2.5-4.9 mg/dL Coagulation Labs: Test 09/08/24 02:54 Range/Units Prothrombin Time 11.1 9.6-11.6 SEC Prothromb Time International Ratio 1.05 0.85-1.15 Activated Partial Thromboplast Time 25.6 L 26.3-35.5 SEC DIAGNOSTICS / RADIOLOGY RESULTS: [ ] PLAN Follow CT surgeon recommendations Follow cardiology recommendations Multimodal pain management Monitoring H&H Monitor chest tube output Chest x-ray in the morning Start SBT's as tolerated Transfuse if absolutely necessary to keep hemoglobin above 8 Maintain O2 sats greater than 92% Incentive spirometry q.1 hour , 10 times. Glycemic control with goal of 80-180 Tolerating diet well- aspiration precautions Referral for cardiac rehabilitation monitor electrolytes: K Goal of 4 Magnesium goal of 2 Replace accordingly NEURO: Minimize central acting medications as possible. Fall Precautions. Well lighted room through the day and minimize interruptions through the night to prevent acute delirium. PULMONARY: Supplemental 02 as needed Titrate Fio2 to keep Spo2 > or = 90% DuoNebs and CPT as needed IS hourly while awake for pulmonary hygiene Out of bed to chair as tolerated VAP Bundle CARDIOVASCULAR: Follow hemodynamics. Titrate vasopressor to keep MAP >65 or systolic blood pressure >95mmHg DRIPS: Nitroglycerin LINES: Right IJ Chest tube Mott catheter Atrial line GI & NUTRITION: Continue nutritional support Aspirations precautions Prokinetic agents and laxatives as needed Speech to eval and treat KIDNEYS & ELECTROLYTES: Strict monitoring of intake and output Daily weights Avoid nephrotoxic agents Monitor electrolytes and replace as needed Goal urine output of 30mL/hr or 0.5mL/kg/hr Urine output: [ ] Fluid Balance: [ ] ENDOCRINE: Maintain blood glucose between 100-180 at all times. Insulin sliding scale for blood glucose management INFECTIOUS DISEASE: Trend temperature. Thompson-culture if febrile. Micro: [ ] Antibiotics: [ ] HEMATOLOGY & COAGULATION: Monitor H&H. Keep Hgb > 7 Transfuse 1 unit of PRBC for Hgb < 7 Transfuse 1 pack of platelets of platelets < 20, 000 Watch for any signs and symptoms of bleeding SKIN: Pressure ulcer prevention per facility protocol Rehab: PT/OT Prophylaxis: GI: Pepcid DVT: ELSA Carr per CV surgeon. Code Status: Full Resuscitation Disposition: ICU Other: Total patient care time exceeds 35 minutes excluding all procedures. Case was discussed and seen with my supervising physician. The above plan was formulated and agreed upon. BELLA SEPULVEDA September 09, 2024 08:42
[2024-09-09] MEDS: metoPROLOL tartRATE 25 MG TAB PO SCH (09:00)
[2024-09-09] MEDS: furoSEMIDE 20 MG TABLET PO SCH (09:13)
[2024-09-09] MEDS: FAMOTIDINE 20MG TAB PO SCH (09:13)
--- NOTE | 2024-09-09 09:20 | HMCIMG ---
Exam Type: CHEST 1VW Clinical Information: s/p CABG Comparison: None Findings: Pulmonary pattern is as before. No worrisome interval changes have taken place. Impression: Stable exam.
--- NOTE | 2024-09-09 09:56 | PN ---
[facility] PROGRESS NOTE Date of Service: September 09, 2024 Time of Service: 09:54 SUBJECTIVE: Mr. Merritt is a 53-year-old male with a history of tobacco and cocaine abuse who presented to [facility] [place] direct admit from [facility] for evaluation of CABG for the diagnosis of multivessel disease. Per chart review the patient presented to [facility] on 09/06/2024 with chest pain that started at 1:00 a.m.. The patient reported he had cocaine on 09/05/2024 night. EKG showed sinus rhythm with a recent OK in the anterior septal lead. His troponins were markedly elevated. The patient was evaluated by Dr. Ange Bro, stripper color Per Echo done on 09/06/2024: Left ventricular systolic dysfunction is [id number] decreased. There was anterior anterolateral, anteroseptal wall hypokinesis LVEF is 35-40%. Transmitral Doppler flow pattern suggestive of impaired LV relaxation. The patient underwent a left heart catheterization on 09/06/2024, findings: Lef t main- It bifurcates into LAD and left circumflex arteries. It has proximal 40% disease. 2. LAD: It is 100% chronic total occlusion of the proximal segment of LAD. The distal segment was filling partially via collaterals coming from the right coronary artery. 3. Left circumflex artery: It has 2 obtuse marginal branches. There is 99% disease in the mid segmental of the left circumflex artery. 4. RCA: It is the dominant vessel. There is proximal 40% disease. There is a mid RCA 80% disease. Distal RCA is also has 20% disease. Right PLB also has diffuse 20% disease. 5. LVED P: 60 mm Hg. Patient was transferred from [facility] to [facility] for the purpose of coronary artery bypass graft by Cardiothoracic surgeon. Today the patient is alert oriented x3, hemodynamically stable, NPO, awaiting to be taken to the operating room today. Family members at bedside. 09/08 patient is seen and examined bedside, status post CABG, postoperative day 1. Patient comfortable, in bed, chest tube in place, remains on insulin drip, getting antibiotics, magnesium supplementation IV, he is on epinephrine, Levophed drip. He is alert oriented x3, denies chest pain, no shortness a breath, no nausea, no vomiting. 5/8 patient is seen and examined at bedside, status post CABG postoperative day 2., patient awake, following commands, had breakfast this morning, tolerated well, no nausea, no vomiting, no abdominal pain. During my visit he is alert oriented x3, remains on 2 L via nasal cannula saturating 98%, currently on nitroglycerin drip, remains with chest tube in place. Chest x-ray shows stable exam. Family at bedside. REVIEW OF SYSTEMS 12-point ROS reviewed with the patient. All pertinent positives mentioned abov e. Otherwise negative, nonpertinent, noncontributory. PHYSICAL EXAM GENERAL APPEARANCE: The patient is awake, alert, and oriented, in no acute cardiopulmonary distress. NEUROLOGICAL: Cranial nerves II-XII grossly intact. Motor is 5/5 in bilateral upper and lower extremities proximal to distal. No sensory deficits. HEENT: Face is symmetric. Pupils are equal and reactive. Extraocular movements are intact. NECK: Supple. No JVD. No thyromegaly. No submental, submandibular, pre- /postauricular, occipital or supraclavicular lymphadenopathy. CHEST: Normal chest expansion. No Telemetry. LUNGS: Absence of any rales, rhonchi or any wheezing. Chest tube in place CARDIOVASCULAR: Regular. S1 and S2 normal. No appreciable rubs, murmurs or gallops. ABDOMEN: Soft, nontender, and nondistended. There is no rebound, voluntary guarding, or rigidity. : Deferred. No Mott. EXTREMITIES: Non-edematous and not cyanotic. No clubbing. Good capillary refill. SKIN: No skin breakdown. Vital Signs (last 8hr) Date Time Temp Pulse Resp B/P (MAP) Pulse Ox O2 Delivery O2 Flow Rate FiO2 09/09/24 08:00 97 Nasal Cannula* 2 28 09/09/24 07:46 93 18 N/Cannula Low lpm 2.0 28 09/09/24 07:45 89 8 83/44 (57) 95 09/09/24 07:44 90 16 106/45 (65) 96 111/46 (67) 09/09/24 07:30 91 17 108/48 (68) 94 09/09/24 07:15 88 17 94/45 (61) 96 09/09/24 07:00 93 8 105/49 (67) 96 09/09/24 06:45 83 99/42 (61) 96 09/09/24 06:44 90 17 90/41 (57) 95 99/37 (57) 09/09/24 06:30 94 17 102/45 (64) 95 09/09/24 06:00 94 18 112/48 (69) 96 09/09/24 05:45 97 16 104/51 (68) 95 118/56 (76) 09/09/24 05:15 99 16 118/52 (74) 96 09/09/24 05:00 99 14 119/51 (73) 96 09/09/24 04:59 126/52 09/09/24 04:45 98 14 125/53 (77) 97 09/09/24 04:44 97 20 113/48 (69) 97 114/60 (78) 09/09/24 04:30 96 18 123/52 (75) 98 09/09/24 04:15 100.0 98 20 122/56 (78) 96 09/09/24 04:00 100 15 112/57 (75) 97 09/09/24 03:45 99 18 112/54 (73) 97 108/54 (72) 09/09/24 03:30 99 14 120/57 (78) 97 09/09/24 03:15 99 20 116/55 (75) 97 09/09/24 03:00 97 16 97/45 (62) 97 09/09/24 03:00 98 Nasal Cannula* 2 28 09/09/24 02:45 96 20 114/56 (75) 97 103/61 (75) 09/09/24 02:43 97 18 N/Cannula Low lpm 2.0 28 09/09/24 02:30 97 17 109/56 (73) 97 09/09/24 02:15 97 18 113/55 (74) 97 09/09/24 02:00 97 18 118/56 (76) 97 LABS: Laboratory: Test 09/09/24 06:02 09/09/24 04:21 09/08/24 03:25 09/08/24 02:54 Range/Units Whole Blood Glucose 105 70-110 MG/DL White Blood Count 12.0 H 4.8-10.8 K/uL Red Blood Count 3.32 L 4.50-6.20 MIL/uL Hemoglobin 10.3 L 14.0-18.0 g/dL Hematocrit 30.1 L 42-54 % Mean Corpuscular Volume 90.7 79-99 fL Mean Corpuscular Hemoglobin 31.0 27.0-33.0 pg Mean Corpuscular Hemoglobin Concent 34.2 32.0-36.0 g/dL Red Cell Distribution Width 13.2 11.0-15.5 % Platelet Count 156 # 130-400 K/uL Mean Platelet Volume 9.6 7.5-10.5 fL Nucleated Red Blood Cells 0.0 0.0-0.19 % Sodium Level 136 136-145 mmol/L Potassium Level 4.1 3.5-5.1 mmol/L Chloride Level 103 101-111 mmol/L Carbon Dioxide Level 29 21-32 mmol/L Blood Urea Nitrogen 11 7-18 mg/dL Creatinine 0.8 0.5-1.3 mg/dL Glomerular Filtration Rate Calc 105 >90 mL/min Random Glucose 99 70-105 mg/dL Total Calcium 7.8 L 8.5-10.1 mg/dL Magnesium Level 2.00 1.80-2.40 mg/dL Total Bilirubin 0.5 0.2-1.0 mg/dL Aspartate Amino Transf (AST/SGOT) 81 H 10-37 U/L Alanine Aminotransferase (ALT/SGPT) 34 12-78 U/L Alkaline Phosphatase 47 L 50-136 U/L Total Protein 6.0 6.0-8.3 g/dL Albumin 2.7 L 3.5-5.0 g/dL Ionized Calcium 1.03 L 1.15-1.33 MMOL/L Phosphorus Level 4.3 2.5-4.9 mg/dL Prothrombin Time 11.1 9.6-11.6 SEC Prothromb Time International Ratio 1.05 0.85-1.15 Activated Partial Thromboplast Time 25.6 L 26.3-35.5 SEC Test 09/07/24 16:46 09/07/24 15:45 09/07/24 15:08 Range/Units Blood Gas Specimen Type Arterial Arterial Blood pH 7.392 7.350-7.450 Arterial Blood Partial Pressure CO2 43 35-48 mmHg Arterial Blood Partial Pressure O2 161.3 H 83.0-108.0 mmHg Arterial Blood HCO3 25.8 21.0-28.0 mmol/L Arterial Blood Oxygen Saturation 98.6 H 94.0-98.0 % Arterial Blood Base Excess 0.6 -2.0-3.0 mmol/L Hemoglobin (Blood Gas) 13.9 13.5-17.5 g/dL Sodium (Blood Gas) 142 136-145 MMOL/L Bedside Potassium (Blood Gas) 4.1 3.4-4.5 MMOL/L Bedside Chloride (Blood Gas) 105 98-107 MMOL/L Bedside Glucose (Blood Gas) 171 H 65-95 MG/DL Bedside Ionized Calcium (Blood Gas) 1.20 1.15-1.33 MMOL/L Bedside Lactic Acid (Blood Gas) 3.43 *H 0.36-0.75 MMOL/L Blood Gas Temperature 37.0 35.5-37.0 CELSIUS Blood Gas Flow-by 10.00 0.00-15.00 L/min Blood Gas Vent Mode CAFM ROOM AIR FiO2 40.0 % Blood Gas Specimen Comment A-LINE GUEVARA Blood Gas PEEP 5 cm H2O Blood Gas Respiration Rate 12.0 min. Blood Gas Tidal Volume 700 ml Current Medications Medications (Trade) Dose Ordered Sig/Georgina Route PRN Reason Start Time Stop Time Status Last Admin Dose Admin Acetaminophen (TYLenol 325MG TAB) 650 mg Q4H PRN PO Temp >38.3C(AFTER EXTUBATION) 09/07/24 12:00 10/07/24 11:59 Acetaminophen (TYLenol 325MG TAB) 650 mg Q6H PRN PO FEVER/MILD PAIN LEVEL 1-3 09/06/24 19:00 09/07/24 11:46 DC Acetaminophen (TYLenol 325MG TAB) 650 mg Q6H PRN PO MILD PAIN (1-3) 09/07/24 12:00 10/07/24 11:59 09/09/24 04:58 650 MG Acetaminophen (TYLenol 650MG SUPPOSITORY) 650 mg Q4H PRN RC Temp >38.3C WHILE INTUBATED 09/07/24 12:00 10/07/24 11:59 Acetaminophen (TYLenol 650MG SUPPOSITORY) 650 mg Q6H PRN RC FEVER / MILD PAIN 1-3 IF NPO 09/06/24 19:00 09/07/24 11:46 DC Acetaminophen (acetaMINOPHEN) 1,000 mg Q6H6 IV 09/07/24 16:00 09/08/24 15:59 DC 09/08/24 12:15 1,000 MG Albumin Human 250 ml @ 0 mls/hr AD PRN IV IF HEMODYNAMICALLY UNSTABLE 09/07/24 12:00 09/08/24 14:23 DC 09/08/24 14:22 250 MLS/HR Aminocaproic Acid 55974 mg/Sodium Chloride 310 ml @ 25 mls/hr AD IV 09/07/24 12:00 09/07/24 12:04 DC Aminocaproic Acid 68390 mg/Sodium Chloride 480 ml @ 0 mls/hr AD PRN IV BLEEDING CONTROL 09/07/24 07:00 10/07/24 06:59 Aspirin (Aspirin 81mg Chew Tab) 81 mg DAILY PO 09/08/24 10:30 10/08/24 10:29 09/09/24 09:13 81 MG Atorvastatin Calcium (LIPItor 40MG) 40 mg HS PO 09/06/24 21:00 10/06/24 20:59 09/08/24 19:55 40 MG Calcium Gluconate 1 gm/Sodium Chloride 60 ml @ 200 mls/hr AD PRN IV HYPOCALCEMIA 09/07/24 12:00 10/07/24 11:59 09/08/24 03:52 200 MLS/HR Cefazolin Sodium (ANCEF 1 gm vial) 2 gm ONCALL IVP 09/06/24 17:30 09/07/24 08:00 DC Cefazolin Sodium (Ancef) 2 gm ONCALL IVP 09/07/24 08:30 09/07/24 11:50 DC 09/07/24 12:00 2 GM Cefazolin Sodium (Ancef) 2 gm Q8H IVPB 09/07/24 17:00 09/08/24 09:01 DC 09/08/24 09:27 2 GM Dexmedetomidine/ Sodium Chloride (PRECEdex 400MCG/ 100ML-NS) 400 mcg PROTOCOL IV 09/07/24 12:00 09/08/24 11:59 DC Dextrose (D50w) 50 ml AD PRN IV HYPOGLYCEMIA PROTOCOL 09/07/24 12:00 10/07/24 11:59 Docusate Sodium (COLace 100MG CAP) 100 mg BID PO 09/07/24 21:00 10/07/24 20:59 09/09/24 09:13 100 MG Docusate Sodium (COLace 100MG CAP) 100 mg BID PRN PO c 09/06/24 19:00 09/07/24 11:46 DC Enoxaparin Sodium (Lovenox) 30 mg DAILY SQ 09/10/24 09:00 10/10/24 08:59 Epinephrine HCl 10 mg/Sodium Chloride 250 ml @ 0 mls/hr AD PRN IV TITRATE 09/07/24 07:00 10/07/24 06:59 Epinephrine HCl 10 mg/Sodium Chloride 250 ml @ 0 mls/hr AD PRN IV POST-OP CARDIOVASCULAR ORDERS 09/07/24 12:00 09/07/24 12:04 DC Famotidine (Pepcid 20mg Vial) 20 mg BID IV 09/07/24 21:00 09/09/24 08:41 DC 09/08/24 19:54 20 MG Famotidine (Pepcid 20mg Tab) 20 mg BID PO 09/09/24 09:00 10/09/24 08:59 09/09/24 09:13 20 MG Furosemide (LASix 20MG TAB) 20 mg Q12H PO 09/09/24 09:00 10/09/24 08:59 09/09/24 09:13 20 MG Furosemide (LASix 20MG VIAL) 20 mg Q12H IV 09/08/24 09:00 09/08/24 19:16 DC 09/08/24 09:27 20 MG Glucagon (Glucagon 1mg Kit) 1 mg AD PRN IM HYPOGLYCEMIA PROTOCOL 09/07/24 12:00 10/07/24 11:59 Heparin Sodium/ Dextrose 250 ml @ 0 mls/hr PROTOCOL IV 09/06/24 18:00 09/07/24 11:46 DC Insulin Human Regular (humuLIN R 100 UNIT/ML 3ML) INSULIN SLIDING SCAL... ACHS SQ 09/09/24 07:30 10/09/24 07:29 Insulin Human Regular (humuLIN R 100 UNIT/ML 3ML) INSULIN SLIDING SCAL... Q6H6 SQ 09/07/24 00:00 09/07/24 11:46 DC Insulin Human Regular 100 unit/ Sodium Chloride 100 ml @ 0 mls/hr AD IV 09/07/24 12:00 09/09/24 06:30 DC Ketorolac Tromethamine (toRADol) 30 mg ONCE STAT IVP 09/08/24 17:16 09/08/24 17:19 DC 09/08/24 17:44 30 MG Labetalol HCl (TRANdate 20MG SYG) 10 mg Q2H PRN IV SBP GREATER THAN 160 09/06/24 19:00 09/07/24 11:46 DC Lactated Ringer's 1,000 ml @ 50 mls/hr Q20H IV 09/07/24 08:00 09/07/24 11:46 DC Lactulose (Constulose 20gm/ 30ml Udcup) 20 gm BID PRN PO CONSTIPATION 09/07/24 12:00 10/07/24 11:59 Lactulose (Constulose 20gm/ 30ml Udcup) 20 gm Q6H PRN PO CONSTIPATION 09/06/24 19:00 09/07/24 12:06 DC Magnesium Hydroxide (Milk Of Magnesium 30ml) 30 ml DAILY PRN PO CONSTIPATION 09/07/24 12:00 10/07/24 11:59 Magnesium Sulfate 50 ml @ 12.5 mls/hr AD PRN IV MAG LEVEL LESS THAN 2.0 09/07/24 12:00 10/07/24 11:59 09/08/24 07:04 12.5 MLS/HR Metoprolol Tartrate (loprESSOR) 12.5 mg BID PO 09/09/24 09:00 10/09/24 08:59 Morphine Sulfate (morPHINE 2MG SYG) 0.5 mg Q2H PRN IV MODERATE PAIN (4-6) 09/07/24 12:00 09/08/24 11:59 DC Morphine Sulfate (morPHINE 2MG SYG) 1 mg Q2H PRN IV SEVERE PAIN (7-10) 09/07/24 12:00 09/08/24 11:59 DC 09/07/24 14:38 1 MG Morphine Sulfate (morPHINE 4MG SYG) 4 mg ONCE IM 09/06/24 21:30 09/06/24 23:59 DC 09/06/24 21:30 4 MG Nitroglycerin/ Dextrose 0 ml @ 0 mls/hr AD IV 09/07/24 12:00 09/10/24 11:59 09/09/24 04:59 15 MLS/HR Norepinephrine Bitartrate 250 ml @ 0 mls/hr AD PRN IV TITRATE 09/07/24 07:00 10/07/24 06:59 09/08/24 18:59 5.6 MLS/HR Norepinephrine Bitartrate 8 mg/ Dextrose 250 ml @ 0 mls/hr AD PRN IV POST-OP CARDIOVASCULAR ORDERS 09/07/24 12:00 09/07/24 12:04 DC Ondansetron HCl (zoFRAN 4MG INJ) 4 mg Q6H PRN IV NAUSEA/VOMITING 09/07/24 12:00 10/07/24 11:59 Ondansetron HCl (zoFRAN 4MG INJ) 4 mg Q6H PRN IVP NAUSEA/VOMITING 09/06/24 19:00 09/07/24 11:46 DC Pantoprazole Sodium (PROTonix 40MG TAB) 40 mg DAILY PO 09/07/24 09:00 09/07/24 11:46 DC Potassium Phosphate 250 ml @ 42 mls/hr AD PRN IV LOW PHOS LEVEL 09/07/24 12:00 10/07/24 11:59 Potassium Chloride 100 ml @ 100 mls/hr AD PRN IV HYPOKALEMIA 09/07/24 12:00 10/07/24 11:59 09/08/24 05:11 100 MLS/HR Propofol 100 ml @ 0 mls/hr AD PRN IV SEDATION 09/07/24 12:00 09/11/24 11:59 Sodium Bicarbonate (Sodium Bicarb 50meq 50ml Vial) 50 meq AD PRN IV OTHER[SEE DOSING INSTRUCTIONS] 09/07/24 12:00 09/10/24 11:59 09/07/24 15:57 50 MEQ Sodium Chloride 500 ml @ 0 mls/hr AD IV 09/07/24 12:00 10/07/24 11:59 Sodium Chloride 1,000 ml @ 10 mls/hr ONCE IV 09/07/24 12:00 09/08/24 11:59 DC 09/07/24 14:39 10 MLS/HR Sodium Chloride (NS Flush 10ml) 10 ml Q8H PRN IVP IV LINE FLUSH 09/07/24 12:00 10/07/24 11:59 Temazepam (restORIL 15 MG CAP) 15 mg HS PRN PO INSOMNIA 09/09/24 07:30 10/09/24 07:29 Tramadol HCl (UltRAM) 25 mg Q6H PRN PO MODERATE PAIN (4-6) 09/07/24 12:00 09/12/24 11:59 Tramadol HCl (UltRAM) 50 mg Q6H PO 09/06/24 21:30 09/07/24 02:59 DC Tramadol HCl (UltRAM) 50 mg Q6H PRN PO MODERATE PAIN (4-6) 09/07/24 03:00 09/07/24 11:46 DC Tramadol HCl (UltRAM) 50 mg Q6H PRN PO SEVERE PAIN (7-10) 09/07/24 12:00 09/12/24 11:59 09/09/24 09:13 50 MG DIAGNOSTICS / RADIOLOGY: [ ] Exam Type: CHEST 1VW Clinical Information: s/p CABG Comparison: None Findings: Pulmonary pattern is as before. No worrisome interval changes have taken place. Impression: Stable exam. ASSESSMENT: Non ST-elevation OK, POA status post CABG 09/07/24 Severe multivessel coronary artery disease, per left heart catheterization on 09/06/2024: 1. Left main- It bifurcates into LAD and left circumflex arteries. It has proximal 40% disease. 2. LAD: It is 100% chronic total occlusion of the proximal segment of LAD. The distal segment was filling partially via collaterals coming from the right coronary artery. 3. Left circumflex artery: It has 2 obtuse marginal branches. There is 99% disease in the mid segmental of the left circumflex artery. 4. RCA: It is the dominant vessel. There is proximal 40% disease. There is a mid RCA 80% disease. Distal RCA is also has 20% disease. Right PLB also has diffuse 20% disease. 5. LVED P: 60 mm Hg. Left ventricular systolic dysfunction is [id number] decreased, per echo on 09/06/2024 Anterior anterolateral, anteroseptal wall hypokinesis LVEF is 35-40%, per echo o n 09/06/2024Transmitral Doppler flow pattern suggestive of impaired LV relaxation. Diastolic dysfunction Acute hypoxemic respiratory failure, POA Leukocytosis Hyperglycemia Transaminitis Elevated BNP Cocaine abuse Tobacco abuse PLAN: Patient remains admitted to the ICU Status post CABG postoperative day 2. Continue with chest tube in place, chest x-ray shows stable exam, further recommendations per Cardiothoracic surgeon Patient currently on nitroglycerin drip. Continue IV antibiotics, monitor WBC in a.m.. Continue supplementation of electrolytes IV per protocol Continue to follow Cardiothoracic input and recommendations NEURO: Minimize central acting medications as possible. Fall Precautions. Well lighted room through the day and minimize interruptions through the night to prevent acute delirium. PULMONARY: Supplemental 02 as needed BiPAP as necessary, for respiratory distress Titrate Fio2 to keep Spo2 > or = 90% DuoNebs and CPT as needed IS hourly while awake for pulmonary hygiene prn Out of bed to chair as tolerated Maintain aspiration precautions at all times CARDIOVASCULAR: Follow hemodynamics. Vital signs per facility protocol GI & NUTRITION: Continue nutritional support Aspirations precautions Prokinetic agents and laxatives as needed KIDNEYS & ELECTROLYTES: Strict monitoring of intake and output Daily weights Avoid nephrotoxic agents Monitor electrolytes and replace as needed Goal urine output of 30mL/hr or 0.5mL/kg/hr Medications to be dosed according to renal function. Avoid contrast if possible ENDOCRINE: Maintain blood glucose between 100-180 at all times. Insulin sliding scale for blood glucose management Hypoglycemia and hyperglycemia protocol in place INFECTIOUS DISEASE: Trend temperature, WBC and procalcitonin level Follow cultures, deescalate antibiotics as soon as possible. Panculture if new onset fever HEMATOLOGY & COAGULATION: Monitor H&H. Keep Hgb > 7 Transfuse 1 unit of PRBC for Hgb < 7 Transfuse 1 pack of platelets of platelets < 20, 000 Watch for any signs and symptoms of bleeding SKIN: Pressure ulcer prevention per facility protocol Specialty mattress as needed ORTHO/REHAB Continue PT/OT PRN: MEDICATIONS Tylenol 650 mg po every 4 hrs for fever zofran 4 mg IV every 6 hrs for n/v Hydralazine 5 mg IV every 4 hrs systolic pressure > 160 bowel regiment: lactulose 20 gm PO BID PRN constipation Supportive measures: Continue GI and DVT prophylaxis Disposition: Pending CABG today. All questions answered time spent: > 35 min KYLE RIVERA MD September 09, 2024 09:56
[2024-09-09] MEDS: ketOROlac 30MG VIAL (30MG/ML) ONE (18:44)
[2024-09-09] MEDS: ketOROlac 30MG VIAL (30MG/ML) IV STA (19:01)
[2024-09-09] MEDS: acetaMINOPHEN 1,000 MG/100 ML VIAL IVPB SCH (20:02)
[2024-09-10] VITALS (56 sets, daily range): BP systolic -8–196; BP diastolic -8–195; PULSE 68–94; RESP 8–37; TEMP 97.4–98.8; O2SAT 94–96
[2024-09-10 04:44] LABS: HEMATOCRIT 31.2 % (42-54); MEAN CORPUSCULAR HEMOGLOBIN 31.2 pg (27.0-33.0); MEAN CORPUSCULAR HGB CONC 34.6 g/dL (32.0-36.0); MEAN CORPUSCULAR VOLUME 90.2 fL (79-99); RED BLOOD CELL COUNT(AUTO) 3.46 MIL/uL (4.50-6.20); RED CELL DISTRIBUTION WIDTH 13.1 % (11.0-15.5); WHITE BLOOD COUNT (AUTO) 8.4 K/uL (4.8-10.8)
[2024-09-10 05:12] LABS: ALBUMIN 2.7 g/dL (3.5-5.0); BILIRUBIN,TOTAL 0.5 mg/dL (0.2-1.0); CREATININE 0.8 mg/dL (0.5-1.3); MAGNESIUM 2.1 mg/dL (1.80-2.40); POTASSIUM 3.9 mmol/L (3.5-5.1); TOTAL PROTEIN, SERUM 6.5 g/dL (6.0-8.3)
--- NOTE | 2024-09-10 07:29 | PN ---
[facility] Cardiology Progress Note CARDIOLOGY PROGRESS NOTE SEPTEMBER 10, 2024 Problems: 1. Recent anteroseptal myocardial infarction in the setting of cocaine abuse 2. Multivessel CAD with total occlusion of the proximal LAD filling via collaterals and LV ejection fraction of 35-40% status post aortocoronary bypass graft surgery with a DAMON graft to the LAD saphenous graft to the 3rd obtuse marginal artery and saphenous graft to the right coronary artery. 3. Dyslipidemia Blood pressure this morning is running 84 systolic heart rate is in the 80s. White count down to 8.4 hemoglobin 10.8 platelet count [id number]. Potassium 3.9 BUN 14 creatinine 0.8. Chest x-ray shows straightening of the left heart border consistent with LVH there was minimal blunting of the left costophrenic angle. Pulmonary vascular pattern appears normal. There was no pneumothorax. Post sternotomy changes are noted. The patient continues on aspirin atorvastatin Lovenox insulin scale metoprolol tartrate tramadol PRN. The patient is up in the chair. Chest tube is in place. Drained 30 cc overnight and chest tube will be evaluated by surgery. Blood pressure this morning is already improved up to 93 systolic heart rate is in the 80s he is in a sinus rhythm. No rub is apparent. We will continue with his current regimen. We will consider addition of clopidogrel post NV after his chest tubes are removed. MATY DUNAWAY MD September 10, 2024 07:29
[2024-09-10] MEDS: ENOXAPARIN SODIUM 30 MG/0.3 ML SQ SCH (07:58)
[2024-09-10] MEDS: LIDOCAINE 4% ADH..PATCH TP SCH (09:51)
--- NOTE | 2024-09-10 10:46 | HMCIMG ---
Exam Type: CHEST 1VW Clinical Information: s/p CABG Comparison: None Findings: Pulmonary pattern is as before. No worrisome interval changes have taken place. Impression: Stable exam.
--- NOTE | 2024-09-10 11:18 | PN ---
[facility] PROGRESS NOTE Date Patient Seen: September 10, 2024 Time of Visit: 11:18 Supervising Physician: [ ] Primary Care Physician: Outpatient Specialists: [ ] Inpatient Consults: Dr North, Dr Kings Abreu MD, Dr Hall, Fadi Severino MD PROBLEM LIST: Acute hypoxemic respiratory failure, POA Non ST-elevation [place], POA status post CABG 09/07/24 Severe Mv CAD s/p CABG 09/07/24 Acute on Chronic diastolid Heart failure with EF 35-40% per echo 09/06/24 Anterior anterolateral, anteroseptal wall hypokinesis LVEF is 35-40%, per echo on 09/06/2024Transmitral Doppler flow pattern suggestive of impaired LV relaxation. Diastolic dysfunction Leukocytosis Hyperglycemia Transaminitis Polysubstance abuse ( Cocaine Tobacco and etoh) Obesity BMI 30.9 INTERVAL HISTORY: Awake alert and oriented x3. No major overnight events. Patient reports trouble sleeping during the night. Currently weaning off nitroglycerin drip at 40 mcg/minute. Blood pressure 110/62 heart rate in the 80s saturating 97% with 2 L via nasal cannula and afebrile. Urine output 2.2 L with a balance of positive 258 mL chest tube drained 180 mL. On laboratory white count is 12 trending down as expected H&H is 10.3/30.1 slightly decreased from yesterday. Chemistry unremarkable. On chest x-ray mild bilateral pulmonary vascular congestion chest tube to left no pneumothorax present central line in good position. REVIEW OF SYSTEMS: Const: [no fever, fatigue, or weight changes] Eyes:[ no recent vision problems] ENT: [No congestion, ear pain, or sore throat] C/V: [no chest pain, palpitations or edema]- + mid sternal incision line tenderness Resp: [No cough, congestion, wheezing , or Shortness of breath] GI: [No abdominal pain, nausea, vomiting, constipation, or diarrhea] : [No incontinence of or dysuria] M/S: [No joint or pain swelling] Skin: [No rash] Neuro: [no headache, focal numbness, or weakness, dizziness or seizures] Psych: Reports trouble sleeping Heme: [no abnormal bruising or bleeding] Lymph: [no swollen glands] PHYSICAL EXAM: GENERAL: alert, weak, awake oriented x 3 HEENT: EOMI, Sclera non icteric, moist mucosa NECK: Supple, no JVD, trachea midline right IJ CVC. LUNGS: Diminished breath sounds bilaterally. No wheezes. Chest tube in place. HEART: Regular rate and rhythm. Normal S1 and S2, without murmurs ABD: Abdomen soft, nontender. Bowel sounds present EXT: No clubbing cyanosis or edema NEURO: Alert and oriented to person, follows commands Vital Signs (last 8hr) Date Time Temp Pulse Resp B/P (MAP) Pulse Ox O2 Delivery O2 Flow Rate FiO2 09/10/24 10:00 96 Room Air* 0 21 09/10/24 08:22 98.8 Room Air 0.0 21 09/10/24 06:55 80 18 N/A Room Air 21 09/10/24 06:45 80 13 84/72 (76) 96 100/53 (69) 09/10/24 06:30 79 15 90/77 (81) 96 09/10/24 06:15 82 16 110/64 (79) 98 09/10/24 06:00 82 20 111/62 (78) 100 09/10/24 05:45 71 20 90/51 (64) 100 99/64 (76) 09/10/24 05:30 73 16 96/52 (67) 100 09/10/24 05:15 69 14 98/53 (68) 100 09/10/24 05:00 71 16 95/56 (69) 99 09/10/24 04:45 72 17 102/54 (70) 99 94/60 (71) 09/10/24 04:30 68 15 85/46 (59) 98 09/10/24 04:15 76 18 94/45 (61) 98 09/10/24 04:00 72 15 101/50 (67) 98 09/10/24 03:45 70 15 90/46 (61) 98 95/60 (72) 09/10/24 03:30 71 16 90/49 (63) 98 LABS: Hematology Labs: Test 09/10/24 03:58 Range/Units White Blood Count 8.4 # 4.8-10.8 K/uL Red Blood Count 3.46 L 4.50-6.20 MIL/uL Hemoglobin 10.8 L 14.0-18.0 g/dL Hematocrit 31.2 L 42-54 % Mean Corpuscular Volume 90.2 79-99 fL Mean Corpuscular Hemoglobin 31.2 27.0-33.0 pg Mean Corpuscular Hemoglobin Concent 34.6 32.0-36.0 g/dL Red Cell Distribution Width 13.1 11.0-15.5 % Platelet Count 153 130-400 K/uL Mean Platelet Volume 10.2 7.5-10.5 fL Nucleated Red Blood Cells 0.0 0.0-0.19 % Chemistry Labs: Test 09/10/24 06:06 09/10/24 03:58 Range/Units Whole Blood Glucose 84 70-110 MG/DL Sodium Level 135 L 136-145 mmol/L Potassium Level 3.9 3.5-5.1 mmol/L Chloride Level 98 L 101-111 mmol/L Carbon Dioxide Level 28 21-32 mmol/L Blood Urea Nitrogen 14 7-18 mg/dL Creatinine 0.8 0.5-1.3 mg/dL Glomerular Filtration Rate Calc 105 >90 mL/min Random Glucose 91 70-105 mg/dL Total Calcium 8.5 8.5-10.1 mg/dL Magnesium Level 2.10 1.80-2.40 mg/dL Total Bilirubin 0.5 0.2-1.0 mg/dL Aspartate Amino Transf (AST/SGOT) 47 H 10-37 U/L Alanine Aminotransferase (ALT/SGPT) 29 12-78 U/L Alkaline Phosphatase 52 50-136 U/L Total Protein 6.5 6.0-8.3 g/dL Albumin 2.7 L 3.5-5.0 g/dL DIAGNOSTICS / RADIOLOGY RESULTS: [ ] PLAN Follow CT surgeon recommendations Follow cardiology recommendations Multimodal pain management Monitoring H&H Monitor chest tube output Chest x-ray in the morning Start SBT's as tolerated Transfuse if absolutely necessary to keep hemoglobin above 8 Maintain O2 sats greater than 92% Incentive spirometry q.1 hour , 10 times. Glycemic control with goal of 80-180 Tolerating diet well- aspiration precautions Referral for cardiac rehabilitation monitor electrolytes: K Goal of 4 Magnesium goal of 2 Replace accordingly NEURO: Minimize central acting medications as possible. Fall Precautions. Well lighted room through the day and minimize interruptions through the night to prevent acute delirium. PULMONARY: Supplemental 02 as needed Titrate Fio2 to keep Spo2 > or = 90% DuoNebs and CPT as needed IS hourly while awake for pulmonary hygiene Out of bed to chair as tolerated VAP Bundle CARDIOVASCULAR: Follow hemodynamics. Titrate vasopressor to keep MAP >65 or systolic blood pressure >95mmHg DRIPS: Nitroglycerin LINES: Right IJ Chest tube Mott catheter Atrial line GI & NUTRITION: Continue nutritional support Aspirations precautions Prokinetic agents and laxatives as needed Speech to eval and treat KIDNEYS & ELECTROLYTES: Strict monitoring of intake and output Daily weights Avoid nephrotoxic agents Monitor electrolytes and replace as needed Goal urine output of 30mL/hr or 0.5mL/kg/hr Urine output: [ ] Fluid Balance: [ ] ENDOCRINE: Maintain blood glucose between 100-180 at all times. Insulin sliding scale for blood glucose management INFECTIOUS DISEASE: Trend temperature. Thompson-culture if febrile. Micro: [ ] Antibiotics: [ ] HEMATOLOGY & COAGULATION: Monitor H&H. Keep Hgb > 7 Transfuse 1 unit of PRBC for Hgb < 7 Transfuse 1 pack of platelets of platelets < 20, 000 Watch for any signs and symptoms of bleeding SKIN: Pressure ulcer prevention per facility protocol Rehab: PT/OT Prophylaxis: GI: Pepcid DVT: ELSA Carr per CV surgeon. Code Status: Full Resuscitation Disposition: ICU Other: Total patient care time exceeds 35 minutes excluding all procedures. Case was discussed and seen with my supervising physician. The above plan was formulated and agreed upon. BELLA SEPULVEDA ETHYL BLENDER September 10, 2024 11:18
[2024-09-10] MEDS: ketOROlac 30MG VIAL (30MG/ML) IVP PRN (11:51)
--- NOTE | 2024-09-10 13:07 | PN ---
[facility] PROGRESS NOTE Date of Service: September 10, 2024 Time of Service: 13:06 SUBJECTIVE: Mr. Merritt is a 53-year-old male with a history of tobacco and cocaine abuse who presented to [facility] [place] as direct admit from [facility] for evaluation of CABG for the diagnosis of multivessel disease. Per chart review the patient presented to [facility] on 09/06/2024 with chest pain that started at 1:00 a.m.. The patient reported he had cocaine on 09/05/2024 night. EKG showed sinus rhythm with a recent IN in the anterior septal lead. His troponins were markedly elevated. The patient was evaluated by Dr. Ange Bro, painter helper spray Per Echo done on 09/06/2024: Left ventricular systolic dysfunction is [id number] decreased. There was anterior anterolateral, anteroseptal wall hypokinesis LVEF is 35-40%. Transmitral Doppler flow pattern suggestive of impaired LV relaxation. The patient underwent a left heart catheterization on 09/06/2024, findings: Lef t main- It bifurcates into LAD and left circumflex arteries. It has proximal 40% disease. 2. LAD: It is 100% chronic total occlusion of the proximal segment of LAD. The distal segment was filling partially via collaterals coming from the right coronary artery. 3. Left circumflex artery: It has 2 obtuse marginal branches. There is 99% disease in the mid segmental of the left circumflex artery. 4. RCA: It is the dominant vessel. There is proximal 40% disease. There is a mid RCA 80% disease. Distal RCA is also has 20% disease. Right PLB also has diffuse 20% disease. 5. LVED P: 60 mm Hg. Patient was transferred from [facility] to [facility] for the purpose of coronary artery bypass graft by Cardiothoracic surgeon. Today the patient is alert oriented x3, hemodynamically stable, NPO, awaiting to be taken to the operating room today. Family members at bedside. 09/08 patient is seen and examined bedside, status post CABG, postoperative day 1. Patient comfortable, in bed, chest tube in place, remains on insulin drip, getting antibiotics, magnesium supplementation IV, he is on epinephrine, Levophed drip. He is alert oriented x3, denies chest pain, no shortness a breath, no nausea, no vomiting. 5/8 patient is seen and examined at bedside, status post CABG postoperative day 2., patient awake, following commands, had breakfast this morning, tolerated well, no nausea, no vomiting, no abdominal pain. During my visit he is alert oriented x3, remains on 2 L via nasal cannula saturating 98%, currently on nitroglycerin drip, remains with chest tube in place. Chest x-ray shows stable exam. Family at bedside. 09/10 patient is seen and examined at bedside, status post CABG postoperative day 3., patient awake, following commands, tolerating diet, no nausea, no vomiting, no abdominal pain. Still with chest tube in place, minimal output. Denied shortness a breath. REVIEW OF SYSTEMS 12-point ROS reviewed with the patient. All pertinent positives mentioned abo ve. Otherwise negative, nonpertinent, noncontributory. PHYSICAL EXAM GENERAL APPEARANCE: The patient is awake, alert, and oriented, in no acute cardiopulmonary distress. NEUROLOGICAL: Cranial nerves II-XII grossly intact. Motor is 5/5 in bilateral upper and lower extremities proximal to distal. No sensory deficits. HEENT: Face is symmetric. Pupils are equal and reactive. Extraocular movements are intact. NECK: Supple. No JVD. No thyromegaly. No submental, submandibular, pre- /postauricular, occipital or supraclavicular lymphadenopathy. CHEST: Normal chest expansion. No Telemetry. LUNGS: Absence of any rales, rhonchi or any wheezing. Chest tube in place CARDIOVASCULAR: Regular. S1 and S2 normal. No appreciable rubs, murmurs or gallops. ABDOMEN: Soft, nontender, and nondistended. There is no rebound, voluntary guarding, or rigidity. : Deferred. No Mott. EXTREMITIES: Non-edematous and not cyanotic. No clubbing. Good capillary refill. SKIN: No skin breakdown. Vital Signs (last 8hr) Date Time Temp Pulse Resp B/P (MAP) Pulse Ox O2 Delivery O2 Flow Rate FiO2 09/10/24 10:00 96 Room Air* 0 09/10/24 08:22 98.8 Room Air 0.0 09/10/24 06:55 80 18 N/A Room Air 09/10/24 06:45 80 13 84/72 (76) 96 100/53 (69) 09/10/24 06:30 79 15 90/77 (81) 96 09/10/24 06:15 82 16 110/64 (79) 98 09/10/24 06:00 82 20 111/62 (78) 100 09/10/24 05:45 71 20 90/51 (64) 100 99/64 (76) 09/10/24 05:30 73 16 96/52 (67) 100 09/10/24 05:15 69 14 98/53 (68) 100 LABS: Laboratory: Test 09/10/24 06:06 09/10/24 03:58 Range/Units Whole Blood Glucose 84 70-110 MG/DL White Blood Count 8.4 # 4.8-10.8 K/uL Red Blood Count 3.46 L 4.50-6.20 MIL/uL Hemoglobin 10.8 L 14.0-18.0 g/dL Hematocrit 31.2 L 42-54 % Mean Corpuscular Volume 90.2 79-99 fL Mean Corpuscular Hemoglobin 31.2 27.0-33.0 pg Mean Corpuscular Hemoglobin Concent 34.6 32.0-36.0 g/dL Red Cell Distribution Width 13.1 11.0-15.5 % Platelet Count 153 130-400 K/uL Mean Platelet Volume 10.2 7.5-10.5 fL Nucleated Red Blood Cells 0.0 0.0-0.19 % Sodium Level 135 L 136-145 mmol/L Potassium Level 3.9 3.5-5.1 mmol/L Chloride Level 98 L 101-111 mmol/L Carbon Dioxide Level 28 21-32 mmol/L Blood Urea Nitrogen 14 7-18 mg/dL Creatinine 0.8 0.5-1.3 mg/dL Glomerular Filtration Rate Calc 105 >90 mL/min Random Glucose 91 70-105 mg/dL Total Calcium 8.5 8.5-10.1 mg/dL Magnesium Level 2.10 1.80-2.40 mg/dL Total Bilirubin 0.5 0.2-1.0 mg/dL Aspartate Amino Transf (AST/SGOT) 47 H 10-37 U/L Alanine Aminotransferase (ALT/SGPT) 29 12-78 U/L Alkaline Phosphatase 52 50-136 U/L Total Protein 6.5 6.0-8.3 g/dL Albumin 2.7 L 3.5-5.0 g/dL Current Medications Medications (Trade) Dose Ordered Sig/Georgina Route PRN Reason Start Time Stop Time Status Last Admin Dose Admin Acetaminophen (TYLenol 325MG TAB) 650 mg Q4H PRN PO Temp >38.3C(AFTER EXTUBATION) 09/07/24 12:00 10/07/24 11:59 Acetaminophen (TYLenol 325MG TAB) 650 mg Q6H PRN PO FEVER/MILD PAIN LEVEL 1-3 09/06/24 19:00 09/07/24 11:46 DC Acetaminophen (TYLenol 325MG TAB) 650 mg Q6H PRN PO MILD PAIN (1-3) 09/07/24 12:00 10/07/24 11:59 09/09/24 18:31 650 MG Acetaminophen (TYLenol 650MG SUPPOSITORY) 650 mg Q4H PRN RC Temp >38.3C WHILE INTUBATED 09/07/24 12:00 10/07/24 11:59 Acetaminophen (TYLenol 650MG SUPPOSITORY) 650 mg Q6H PRN RC FEVER / MILD PAIN 1-3 IF NPO 09/06/24 19:00 09/07/24 11:46 DC Acetaminophen (acetaMINOPHEN) 1,000 mg Q6H6 IV 09/07/24 16:00 09/08/24 15:59 DC 09/08/24 12:15 1,000 MG Acetaminophen (acetaMINOPHEN) 1,000 mg Q6H6 IVPB 09/09/24 20:00 09/11/24 19:59 09/10/24 07:57 1,000 MG Albumin Human 250 ml @ 0 mls/hr AD PRN IV IF HEMODYNAMICALLY UNSTABLE 09/07/24 12:00 09/08/24 14:23 DC 09/08/24 14:22 250 MLS/HR Aminocaproic Acid 59035 mg/Sodium Chloride 310 ml @ 25 mls/hr AD IV 09/07/24 12:00 09/07/24 12:04 DC Aminocaproic Acid 44733 mg/Sodium Chloride 480 ml @ 0 mls/hr AD PRN IV BLEEDING CONTROL 09/07/24 07:00 10/07/24 06:59 Aspirin (Aspirin 81mg Chew Tab) 81 mg DAILY PO 09/08/24 10:30 10/08/24 10:29 09/10/24 07:58 81 MG Atorvastatin Calcium (LIPItor 40MG) 40 mg HS PO 09/06/24 21:00 10/06/24 20:59 09/09/24 19:53 40 MG Calcium Gluconate 1 gm/Sodium Chloride 60 ml @ 200 mls/hr AD PRN IV HYPOCALCEMIA 09/07/24 12:00 10/07/24 11:59 09/08/24 03:52 200 MLS/HR Cefazolin Sodium (ANCEF 1 gm vial) 2 gm ONCALL IVP 09/06/24 17:30 09/07/24 08:00 DC Cefazolin Sodium (Ancef) 2 gm ONCALL IVP 09/07/24 08:30 09/07/24 11:50 DC 09/07/24 12:00 2 GM Cefazolin Sodium (Ancef) 2 gm Q8H IVPB 09/07/24 17:00 09/08/24 09:01 DC 09/08/24 09:27 2 GM Dexmedetomidine/ Sodium Chloride (PRECEdex 400MCG/ 100ML-NS) 400 mcg PROTOCOL IV 09/07/24 12:00 09/08/24 11:59 DC Dextrose (D50w) 50 ml AD PRN IV HYPOGLYCEMIA PROTOCOL 09/07/24 12:00 10/07/24 11:59 Docusate Sodium (COLace 100MG CAP) 100 mg BID PO 09/07/24 21:00 10/07/24 20:59 09/10/24 07:58 100 MG Docusate Sodium (COLace 100MG CAP) 100 mg BID PRN PO c 09/06/24 19:00 09/07/24 11:46 DC Enoxaparin Sodium (Lovenox) 30 mg DAILY SQ 09/10/24 09:00 10/10/24 08:59 Epinephrine HCl 10 mg/Sodium Chloride 250 ml @ 0 mls/hr AD PRN IV TITRATE 09/07/24 07:00 10/07/24 06:59 Epinephrine HCl 10 mg/Sodium Chloride 250 ml @ 0 mls/hr AD PRN IV POST-OP CARDIOVASCULAR ORDERS 09/07/24 12:00 09/07/24 12:04 DC Famotidine (Pepcid 20mg Vial) 20 mg BID IV 09/07/24 21:00 09/09/24 08:41 DC 09/08/24 19:54 20 MG Famotidine (Pepcid 20mg Tab) 20 mg BID PO 09/09/24 09:00 10/09/24 08:59 09/10/24 07:58 20 MG Furosemide (LASix 20MG TAB) 20 mg Q12H PO 09/09/24 09:00 10/09/24 08:59 09/10/24 07:57 20 MG Furosemide (LASix 20MG VIAL) 20 mg Q12H IV 09/08/24 09:00 09/08/24 19:16 DC 09/08/24 09:27 20 MG Glucagon (Glucagon 1mg Kit) 1 mg AD PRN IM HYPOGLYCEMIA PROTOCOL 09/07/24 12:00 10/07/24 11:59 Heparin Sodium/ Dextrose 250 ml @ 0 mls/hr PROTOCOL IV 09/06/24 18:00 09/07/24 11:46 DC Insulin Human Regular (humuLIN R 100 UNIT/ML 3ML) INSULIN SLIDING SCAL... ACHS SQ 09/09/24 07:30 10/09/24 07:29 Insulin Human Regular (humuLIN R 100 UNIT/ML 3ML) INSULIN SLIDING SCAL... Q6H6 SQ 09/07/24 00:00 09/07/24 11:46 DC Insulin Human Regular 100 unit/ Sodium Chloride 100 ml @ 0 mls/hr AD IV 09/07/24 12:00 09/09/24 06:30 DC Ketorolac Tromethamine (toRADol) 30 mg ONCE STAT IV 09/09/24 18:35 09/09/24 18:46 DC Ketorolac Tromethamine (toRADol) 30 mg ONCE STAT IVP 09/08/24 17:16 09/08/24 17:19 DC 09/08/24 17:44 30 MG Ketorolac Tromethamine (toRADol) 30 mg Q6H PRN IVP SEVERE PAIN (7-10) 09/10/24 11:30 09/15/24 11:29 09/10/24 11:51 30 MG Labetalol HCl (TRANdate 20MG SYG) 10 mg Q2H PRN IV SBP GREATER THAN 160 09/06/24 19:00 09/07/24 11:46 DC Lactated Ringer's 1,000 ml @ 50 mls/hr Q20H IV 09/07/24 08:00 09/07/24 11:46 DC Lactulose (Constulose 20gm/ 30ml Udcup) 20 gm BID PRN PO CONSTIPATION 09/07/24 12:00 10/07/24 11:59 Lactulose (Constulose 20gm/ 30ml Udcup) 20 gm Q6H PRN PO CONSTIPATION 09/06/24 19:00 09/07/24 12:06 DC Lidocaine (Lidocaine Patch 4%) 1 each DAILY TP 09/10/24 09:30 10/10/24 09:29 09/10/24 09:51 1 EACH Magnesium Hydroxide (Milk Of Magnesium 30ml) 30 ml DAILY PRN PO CONSTIPATION 09/07/24 12:00 10/07/24 11:59 Magnesium Sulfate 50 ml @ 12.5 mls/hr AD PRN IV MAG LEVEL LESS THAN 2.0 09/07/24 12:00 10/07/24 11:59 09/08/24 07:04 12.5 MLS/HR Metoprolol Tartrate (loprESSOR) 12.5 mg BID PO 09/09/24 09:00 10/09/24 08:59 09/09/24 19:54 12.5 MG Morphine Sulfate (morPHINE 2MG SYG) 0.5 mg Q2H PRN IV MODERATE PAIN (4-6) 09/07/24 12:00 09/08/24 11:59 DC Morphine Sulfate (morPHINE 2MG SYG) 1 mg Q2H PRN IV SEVERE PAIN (7-10) 09/07/24 12:00 09/08/24 11:59 DC 09/07/24 14:38 1 MG Morphine Sulfate (morPHINE 4MG SYG) 4 mg ONCE IM 09/06/24 21:30 09/06/24 23:59 DC 09/06/24 21:30 4 MG Nitroglycerin/ Dextrose 0 ml @ 0 mls/hr AD IV 09/07/24 12:00 09/10/24 11:59 DC 09/09/24 04:59 15 MLS/HR Norepinephrine Bitartrate 250 ml @ 0 mls/hr AD PRN IV TITRATE 09/07/24 07:00 10/07/24 06:59 09/08/24 18:59 5.6 MLS/HR Norepinephrine Bitartrate 8 mg/ Dextrose 250 ml @ 0 mls/hr AD PRN IV POST-OP CARDIOVASCULAR ORDERS 09/07/24 12:00 09/07/24 12:04 DC Ondansetron HCl (zoFRAN 4MG INJ) 4 mg Q6H PRN IV NAUSEA/VOMITING 09/07/24 12:00 10/07/24 11:59 Ondansetron HCl (zoFRAN 4MG INJ) 4 mg Q6H PRN IVP NAUSEA/VOMITING 09/06/24 19:00 09/07/24 11:46 DC Pantoprazole Sodium (PROTonix 40MG TAB) 40 mg DAILY PO 09/07/24 09:00 09/07/24 11:46 DC Potassium Phosphate 250 ml @ 42 mls/hr AD PRN IV LOW PHOS LEVEL 09/07/24 12:00 10/07/24 11:59 Potassium Chloride 100 ml @ 100 mls/hr AD PRN IV HYPOKALEMIA 09/07/24 12:00 10/07/24 11:59 09/10/24 06:07 100 MLS/HR Propofol 100 ml @ 0 mls/hr AD PRN IV SEDATION 09/07/24 12:00 09/11/24 11:59 Sodium Bicarbonate (Sodium Bicarb 50meq 50ml Vial) 50 meq AD PRN IV OTHER[SEE DOSING INSTRUCTIONS] 09/07/24 12:00 09/10/24 11:59 DC 09/07/24 15:57 50 MEQ Sodium Chloride 500 ml @ 0 mls/hr AD IV 09/07/24 12:00 10/07/24 11:59 Sodium Chloride 1,000 ml @ 10 mls/hr ONCE IV 09/07/24 12:00 09/08/24 11:59 DC 09/07/24 14:39 10 MLS/HR Sodium Chloride (NS Flush 10ml) 10 ml Q8H PRN IVP IV LINE FLUSH 09/07/24 12:00 10/07/24 11:59 Temazepam (restORIL 15 MG CAP) 15 mg HS PRN PO INSOMNIA 09/09/24 07:30 10/09/24 07:29 Tramadol HCl (UltRAM) 25 mg Q6H PRN PO MODERATE PAIN (4-6) 09/07/24 12:00 09/12/24 11:59 Tramadol HCl (UltRAM) 50 mg Q6H PO 09/06/24 21:30 09/07/24 02:59 DC Tramadol HCl (UltRAM) 50 mg Q6H PRN PO MODERATE PAIN (4-6) 09/07/24 03:00 09/07/24 11:46 DC Tramadol HCl (UltRAM) 50 mg Q6H PRN PO SEVERE PAIN (7-10) 09/07/24 12:00 09/12/24 11:59 09/09/24 22:17 50 MG DIAGNOSTICS / RADIOLOGY: [ ] ASSESSMENT: Non ST-elevation IN, POA status post CABG 09/07/24 Severe multivessel coronary artery disease, per left heart catheterization on 09/06/2024: 1. Left main- It bifurcates into LAD and left circumflex arteries. It has proximal 40% disease. 2. LAD: It is 100% chronic total occlusion of the proximal segment of LAD. The distal segment was filling partially via collaterals coming from the right coronary artery. 3. Left circumflex artery: It has 2 obtuse marginal branches. There is 99% disease in the mid segmental of the left circumflex artery. 4. RCA: It is the dominant vessel. There is proximal 40% disease. There is a mid RCA 80% disease. Distal RCA is also has 20% disease. Right PLB also has diffuse 20% disease. 5. LVED P: 60 mm Hg. Left ventricular systolic dysfunction is [id number] decreased, per echo on 09/06/2024 Anterior anterolateral, anteroseptal wall hypokinesis LVEF is 35-40%, per echo on 09/06/2024Transmitral Doppler flow pattern suggestive of impaired LV relaxation. Diastolic dysfunction Acute hypoxemic respiratory failure, POA Leukocytosis Hyperglycemia Transaminitis Elevated BNP Cocaine abuse Tobacco abuse PLAN: Patient remains admitted to the ICU, possible downgraded to the PCU today Status post CABG postoperative day 3. Continue with chest tube in place, chest x-ray shows stable exam, further recommendations per Cardiothoracic surgeon. Possible removal of chest tube today. Patient currently off nitroglycerin drip. Continue IV antibiotics, monitor WBC in a.m.. Continue supplementation of electrolytes IV per protocol Continue to follow Cardiothoracic input and recommendations NEURO: Minimize central acting medications as possible. Fall Precautions. Well lighted room through the day and minimize interruptions through the night to prevent acute delirium. PULMONARY: Supplemental 02 as needed BiPAP as necessary, for respiratory distress Titrate Fio2 to keep Spo2 > or = 90% DuoNebs and CPT as needed IS hourly while awake for pulmonary hygiene prn Out of bed to chair as tolerated Maintain aspiration precautions at all times CARDIOVASCULAR: Follow hemodynamics. Vital signs per facility protocol GI & NUTRITION: Continue nutritional support Aspirations precautions Prokinetic agents and laxatives as needed KIDNEYS & ELECTROLYTES: Strict monitoring of intake and output Daily weights Avoid nephrotoxic agents Monitor electrolytes and replace as needed Goal urine output of 30mL/hr or 0.5mL/kg/hr Medications to be dosed according to renal function. Avoid contrast if possible ENDOCRINE: Maintain blood glucose between 100-180 at all times. Insulin sliding scale for blood glucose management Hypoglycemia and hyperglycemia protocol in place INFECTIOUS DISEASE: Trend temperature, WBC and procalcitonin level Follow cultures, deescalate antibiotics as soon as possible. Panculture if new onset fever HEMATOLOGY & COAGULATION: Monitor H&H. Keep Hgb > 7 Transfuse 1 unit of PRBC for Hgb < 7 Transfuse 1 pack of platelets of platelets < 20, 000 Watch for any signs and symptoms of bleeding SKIN: Pressure ulcer prevention per facility protocol Specialty mattress as needed ORTHO/REHAB Continue PT/OT PRN: MEDICATIONS Tylenol 650 mg po every 4 hrs for fever zofran 4 mg IV every 6 hrs for n/v Hydralazine 5 mg IV every 4 hrs systolic pressure > 160 bowel regiment: lactulose 20 gm PO BID PRN constipation Supportive measures: Continue GI and DVT prophylaxis Disposition: Pending CABG today. All questions answered time spent: > 35 min KYLE RIVERA MD September 10, 2024 13:07
--- NOTE | 2024-09-10 20:34 | PN ---
[facility] PROGRESS NOTE Date Patient Seen: September 10, 2024 Time of Visit: 11:00 Supervising Physician: Manpreet Carroll MD Primary Care Physician: Outpatient Specialists: [ ] Inpatient Consults: Dr North, Dr Tayo Ratliff MD, Dr Hall, Fadi Severino MD PROBLEM LIST: Acute hypoxemic respiratory failure, POA, resolved Non ST-elevation SC, POA status post CABG 09/07/24 Severe Mv CAD s/p CABG 09/07/24 Acute on Chronic diastolid Heart failure with EF 35-40% per echo 09/06/24 Anterior anterolateral, anteroseptal wall hypokinesis LVEF is 35-40%, per echo on 09/06/2024Transmitral Doppler flow pattern suggestive of impaired LV relaxation. Diastolic dysfunction Leukocytosis Hyperglycemia Transaminitis Polysubstance abuse ( Cocaine Tobacco and etoh) Obesity BMI 30.9 INTERVAL HISTORY: Awake alert and oriented x3. No major overnight events. Patient reports lower left side back pain. per pt thinks it may be from body posture or chest tube. He reporta pain is dull achy especially with movement. He agrees to use a lidocaine patch. CV Surgery has added PRN Toradol. Plan is to deline today and downgrade to PCCU per CV surgery. Otherwise pt has no other complains. He is currently working with his IS and jai approximately 1.4 L. Laboratory unremarkable similar to yesterday, REVIEW OF SYSTEMS: Const: [no fever, fatigue, or weight changes] Eyes:[ no recent vision problems] ENT: [No congestion, ear pain, or sore throat] C/V: [no chest pain, palpitations or edema Left back pain Resp: [No cough, congestion, wheezing , or Shortness of breath] GI: [No abdominal pain, nausea, vomiting, constipation, or diarrhea] : [No incontinence of or dysuria] M/S: [No joint or pain swelling] Skin: [No rash] Neuro: [no headache, focal numbness, or weakness, dizziness or seizures] Psych: Reports trouble sleeping Heme: [no abnormal bruising or bleeding] Lymph: [no swollen glands] PHYSICAL EXAM: GENERAL: alert, weak, awake oriented x 3 HEENT: EOMI, Sclera non icteric, moist mucosa NECK: Supple, no JVD, trachea midline right IJ CVC. LUNGS: Diminished breath sounds bilaterally. No wheezes. Chest tube in place. HEART: Regular rate and rhythm. Normal S1 and S2, without murmurs ABD: Abdomen soft, nontender. Bowel sounds present EXT: No clubbing cyanosis or edema NEURO: Alert and oriented to person, follows commands Vital Signs (last 8hr) Date Time Temp Pulse Resp B/P (MAP) Pulse Ox O2 Delivery O2 Flow Rate FiO2 09/10/24 20:04 98.6 88 18 102/62 98 Room Air 09/10/24 17:00 82 17 100/65 (77) 98 21 09/10/24 16:44 98.2 82 17 100/65 98 Room Air 09/10/24 16:40 96 Room Air* 0 21 09/10/24 16:00 81 22 -8/-8 (-8) 97 21 91/52 (65) 09/10/24 15:00 87 21 -8/-8 (-8) 94 21 58/22 (34) 09/10/24 14:00 84 22 -8/-8 (-8) 95 21 108/60 (76) 09/10/24 13:00 92 16 125/95 96 Room Air 09/10/24 12:45 87 16 -7/-8 (-8) 95 21 125/95 (105) 09/10/24 12:40 89 25 -7/-8 (-8) 97 21 102/65 (77) LABS: Hematology Labs: Test 09/10/24 03:58 Range/Units White Blood Count 8.4 # 4.8-10.8 K/uL Red Blood Count 3.46 L 4.50-6.20 MIL/uL Hemoglobin 10.8 L 14.0-18.0 g/dL Hematocrit 31.2 L 42-54 % Mean Corpuscular Volume 90.2 79-99 fL Mean Corpuscular Hemoglobin 31.2 27.0-33.0 pg Mean Corpuscular Hemoglobin Concent 34.6 32.0-36.0 g/dL Red Cell Distribution Width 13.1 11.0-15.5 % Platelet Count 153 130-400 K/uL Mean Platelet Volume 10.2 7.5-10.5 fL Nucleated Red Blood Cells 0.0 0.0-0.19 % Chemistry Labs: Test 09/10/24 06:06 09/10/24 03:58 Range/Units Whole Blood Glucose 84 70-110 MG/DL Sodium Level 135 L 136-145 mmol/L Potassium Level 3.9 3.5-5.1 mmol/L Chloride Level 98 L 101-111 mmol/L Carbon Dioxide Level 28 21-32 mmol/L Blood Urea Nitrogen 14 7-18 mg/dL Creatinine 0.8 0.5-1.3 mg/dL Glomerular Filtration Rate Calc 105 >90 mL/min Random Glucose 91 70-105 mg/dL Total Calcium 8.5 8.5-10.1 mg/dL Magnesium Level 2.10 1.80-2.40 mg/dL Total Bilirubin 0.5 0.2-1.0 mg/dL Aspartate Amino Transf (AST/SGOT) 47 H 10-37 U/L Alanine Aminotransferase (ALT/SGPT) 29 12-78 U/L Alkaline Phosphatase 52 50-136 U/L Total Protein 6.5 6.0-8.3 g/dL Albumin 2.7 L 3.5-5.0 g/dL DIAGNOSTICS / RADIOLOGY RESULTS: [ ] Signed PATIENT: FROILAN RIVERA MR#: [id number] : 1970 SEX: M AGE: 53 LOCATION: 2CV ORDER 2300 STATUS: ADM IN REPORT#: [id number] SERVICE 0400 REASON: s/p CABG ORDERING PHYSICIAN: TAYO RATLIFF MD PROCEDURE: CXR1VW - CHEST 1VW Exam Type: CHEST 1VW Clinical Information: s/p CABG Comparison: None Findings: Pulmonary pattern is as before. No worrisome interval changes have taken place. Impression: Stable exam. DICTATED BY: NELSON PINA MD DATE: 09/10/241043 ELECTRONICALLY SIGNED BY: NELSON PINA MD DATE: 09/10/241045 PLAN Lidocaine patch for back pain Advised pt not to do cocaine anymore because he migh if he does Also advised to quit drinking and smoking in order to increase the probability of complications and further deterioration of heart failure. NEURO: Minimize central acting medications as possible. Maintain fall precautions, adequate lighting during the day PULMONARY: Supplemental 02 as needed. Maintain aspiration precautions at all times continue workin with IS CARDIOVASCULAR: Follow hemodynamics. Vital signs per facility protocol GI & NUTRITION: Continue with nutritional support. Continue stool softeners and laxatives as needed. KIDNEYS & ELECTROLYTES: Strict monitoring of intake, output and overall fluid balance. Avoid nephrotoxic medications to the extent possible. Medications to be dosed according to renal function. Monitor electrolytes and replace as needed ENDOCRINE: Maintain blood glucose between 100-180 at all times. Hypoglycemia protocol in place INFECTIOUS DISEASE: Trend temperature, WBC and procalcitonin level Follow cultures, deescalate antibiotics as soon as possible. Panculture if new onset fever ONCOLOGY/HEMATOLOGY/COAGULATION: Monitor for s/s of bleeding Monitor hemoglobin, coagulation studies as needed SKIN: Pressure ulcer prevention per facility protocol Specialty mattress ORTHO/REHAB: Continue PT/OT Prophylaxis: Continue GI and DVT prophylaxis Code Status: Full Resuscitation Disposition: PCCU Other: Total patient care time exceeds 35 minutes excluding all procedures. [facility] September 10, 2024 20:34
--- NOTE | 2024-09-10 21:12 | PN ---
SUBJECTIVE: Status post CABG, postop day #3. OBJECTIVE: GENERAL: Awake, alert, afebrile, neurologically intact. VITAL SIGNS: Stable as recorded in the medical records. CHEST: Sternum stable. Incision sealed. LUNGS: Clear. EXTREMITIES: Warm, well perfused. No evidence of DVT, hematoma, or infection. ASSESSMENT: Status post CABG. PROBLEMS: * Coronary artery disease. Initiate aspirin 81 mg, metoprolol 25 mg twice a day. * Possible pericarditis. Initiate Toradol. * Fluid overload. Lasix 20 mg twice a day. * Dyslipidemia. Lipitor 40 mg once a day. PLAN: OT/PT. [place], cardiac rehab. Discontinue chest tubes in the morning. TID: [id number] RECEIPT: [id number]
[2024-09-10] MEDS: TEMAZepam 15 MG CAPSULE PO PRN (21:14)
[2024-09-11 01:03] VITALS: BP 103/68; PULSE 88; RESP 18; TEMP 98.2
[2024-09-11 04:57] LABS: HEMATOCRIT 33.8 % (42-54); MEAN CORPUSCULAR HEMOGLOBIN 31.1 pg (27.0-33.0); MEAN CORPUSCULAR VOLUME 91.4 fL (79-99); RED BLOOD CELL COUNT(AUTO) 3.7 MIL/uL (4.50-6.20)
[2024-09-11 05:09] VITALS: BP 98/60; PULSE 86; RESP 18; TEMP 98.6
[2024-09-11 05:49] LABS: ALBUMIN 2.6 g/dL (3.5-5.0); BILIRUBIN,TOTAL 0.5 mg/dL (0.2-1.0); CREATININE 0.9 mg/dL (0.5-1.3); MAGNESIUM 2.1 mg/dL (1.80-2.40); POTASSIUM 4.1 mmol/L (3.5-5.1); TOTAL PROTEIN, SERUM 6.5 g/dL (6.0-8.3)
[2024-09-11 07:33] VITALS: BP 100/62; PULSE 82; RESP 18; TEMP 99.2
[2024-09-11 08:00] VITALS: O2SAT 96
--- NOTE | 2024-09-11 09:56 | HMCIMG ---
Exam Type: CHEST 1VW Clinical Information: s/p CABG Comparison: None Findings: There is cardiomegaly and there is status post median sternotomy. The lungs are clear of infiltrates. Impression: Clear lungs.
[2024-09-11 11:38] VITALS: BP 104/63; PULSE 79; RESP 18; TEMP 98.4
--- NOTE | 2024-09-11 12:34 | PN ---
SUBJECTIVE: No complaints, status post CABG, coursing postop day #4. OBJECTIVE: GENERAL: Awake, alert, afebrile, neurologically intact. VITAL SIGNS: Stable as recorded in the medical record. CHEST: Sternum is stable. Incision sealed. LUNGS: Clear. EXTREMITIES: Warm and well perfused. No evidence of DVT, hematoma, or infection. ASSESSMENT: Status post coronary artery bypass graft surgery. * Cardiac. The patient has been in sinus rhythm, hemodynamically stable, on metoprolol 25 mg twice a day and aspirin 81 mg. * Dyslipidemia. Cholesterol levels have been taken, checking liver enzymes. The patient is started on Lipitor 40 mg once a day. * Fluid overload. Lasix 20 mg twice a day. * Deep vein thrombosis prophylaxis. The patient is wearing sequential compression devices while in bed. He is encouraged to ambulate and once the chest tubes are discontinued, he will be started on Lovenox 30 mg once a day. PLAN: OT/PT, cardiac rehab, discharge planning. TID: [id number] RECEIPT: [id number]
--- NOTE | 2024-09-11 12:46 | PN ---
[facility] PROGRESS NOTE Date of Service: September 11, 2024 Time of Service: 12:45 SUBJECTIVE: Mr. Merritt is a 53-year-old male with a history of tobacco and cocaine abuse who presented to [facility] as direct admit from [facility] for evaluation of CABG for the diagnosis of multivessel disease. Per chart review the patient presented to [facility] on 09/06/2024 with chest pain that started at 1:00 a.m.. The patient reported he had cocaine on 09/05/2024 night. EKG showed sinus rhythm with a recent PR in the anterior septal lead. His troponins were markedly elevated. The patient was evaluated by Dr. Ange Bro, alliances consultant Per Echo done on 09/06/2024: Left ventricular systolic dysfunction is [id number] decreased. There was anterior anterolateral, anteroseptal wall hypokinesis LVEF is 35-40%. Transmitral Doppler flow pattern suggestive of impaired LV relaxation. The patient underwent a left heart catheterization on 09/06/2024, findings: Le ft main- It bifurcates into LAD and left circumflex arteries. It has proximal 40% disease. 2. LAD: It is 100% chronic total occlusion of the proximal segment of LAD. The distal segment was filling partially via collaterals coming from the right coronary artery. 3. Left circumflex artery: It has 2 obtuse marginal branches. There is 99% disease in the mid segmental of the left circumflex artery. 4. RCA: It is the dominant vessel. There is proximal 40% disease. There is a mid RCA 80% disease. Distal RCA is also has 20% disease. Right PLB also has diffuse 20% disease. 5. LVED P: 60 mm Hg. Patient was transferred from [facility] to [facility] for the purpose of coronary artery bypass graft by Cardiothoracic surgeon. Today the patient is alert oriented x3, hemodynamically stable, NPO, awaiting to be taken to the operating room today. Family members at bedside. 09/08 patient is seen and examined bedside, status post CABG, postoperative day 1. Patient comfortable, in bed, chest tube in place, remains on insulin drip, getting antibiotics, magnesium supplementation IV, he is on epinephrine, Levophed drip. He is alert oriented x3, denies chest pain, no shortness a breath, no nausea, no vomiting. 09/09 patient is seen and examined at bedside, status post CABG postoperative day 2., patient awake, following commands, had breakfast this morning, tolerated well, no nausea, no vomiting, no abdominal pain. During my visit he is alert oriented x3, remains on 2 L via nasal cannula saturating 98%, currently on nitroglycerin drip, remains with chest tube in place. Chest x-ray shows stable exam. Family at bedside. 09/10 patient is seen and examined at bedside, status post CABG postoperative day 3., patient awake, following commands, tolerating diet, no nausea, no vomiting, no abdominal pain. Still with chest tube in place, minimal output. Denied shortness a breath. 09/11 patient is seen and examined at bedside, downgraded to the PCU, doing well with physical therapy, walking around in the hallway, hemodynamically stable, no chest pain, no shortness a breath, no nausea, no vomiting. REVIEW OF SYSTEMS 12-point ROS reviewed with the patient. All pertinent positives mentioned above. Otherwise negative, nonpertinent, noncontributory. PHYSICAL EXAM GENERAL APPEARANCE: The patient is awake, alert, and oriented, in no acute cardiopulmonary distress. NEUROLOGICAL: Cranial nerves II-XII grossly intact. Motor is 5/5 in bilateral upper and lower extremities proximal to distal. No sensory deficits. HEENT: Face is symmetric. Pupils are equal and reactive. Extraocular movements are intact. NECK: Supple. No JVD. No thyromegaly. No submental, submandibular, pre-/postauricular, occipital or supraclavicular lymphadenopathy. CHEST: Normal chest expansion. No Telemetry. LUNGS: Absence of any rales, rhonchi or any wheezing. Chest tube in place CARDIOVASCULAR: Regular. S1 and S2 normal. No appreciable rubs, murmurs or gallops. ABDOMEN: Soft, nontender, and nondistended. There is no rebound, voluntary guarding, or rigidity. : Deferred. No Mott. EXTREMITIES: Non-edematous and not cyanotic. No clubbing. Good capillary refill. SKIN: No skin breakdown. Vital Signs (last 8hr) Date Time Temp Pulse Resp B/P (MAP) Pulse Ox O2 Delivery O2 Flow Rate FiO2 09/11/24 11:38 98.4 79 18 104/63 98 Room Air 09/11/24 08:00 96 Room Air* 0 21 09/11/24 07:33 99.1 82 18 100/62 96 Room Air 09/11/24 05:09 98.6 86 18 98/60 100 Room Air LABS: Laboratory: Test 09/11/24 11:41 09/11/24 03:44 Range/Units Whole Blood Glucose 115 H 70-110 MG/DL White Blood Count 8.0 4.8-10.8 K/uL Red Blood Count 3.70 L 4.50-6.20 MIL/uL Hemoglobin 11.5 L 14.0-18.0 g/dL Hematocrit 33.8 L 42-54 % Mean Corpuscular Volume 91.4 79-99 fL Mean Corpuscular Hemoglobin 31.1 27.0-33.0 pg Mean Corpuscular Hemoglobin Concent 34.0 32.0-36.0 g/dL Red Cell Distribution Width 13.0 11.0-15.5 % Platelet Count 238 # 130-400 K/uL Mean Platelet Volume 9.7 7.5-10.5 fL Nucleated Red Blood Cells 0.0 0.0-0.19 % Sodium Level 140 136-145 mmol/L Potassium Level 4.1 3.5-5.1 mmol/L Chloride Level 102 101-111 mmol/L Carbon Dioxide Level 30 21-32 mmol/L Blood Urea Nitrogen 17 7-18 mg/dL Creatinine 0.9 0.5-1.3 mg/dL Glomerular Filtration Rate Calc 101 >90 mL/min Random Glucose 91 70-105 mg/dL Total Calcium 8.3 L 8.5-10.1 mg/dL Magnesium Level 2.10 1.80-2.40 mg/dL Total Bilirubin 0.5 0.2-1.0 mg/dL Aspartate Amino Transf (AST/SGOT) 31 10-37 U/L Alanine Aminotransferase (ALT/SGPT) 27 12-78 U/L Alkaline Phosphatase 55 50-136 U/L Total Protein 6.5 6.0-8.3 g/dL Albumin 2.6 L 3.5-5.0 g/dL Current Medications Medications (Trade) Dose Ordered Sig/Georgina Route PRN Reason Start Time Stop Time Status Last Admin Dose Admin Acetaminophen (TYLenol 325MG TAB) 650 mg Q4H PRN PO Temp >38.3C(AFTER EXTUBATION) 09/07/24 12:00 10/07/24 11:59 Acetaminophen (TYLenol 325MG TAB) 650 mg Q6H PRN PO FEVER/MILD PAIN LEVEL 1-3 09/06/24 19:00 09/07/24 11:46 DC Acetaminophen (TYLenol 325MG TAB) 650 mg Q6H PRN PO MILD PAIN (1-3) 09/07/24 12:00 10/07/24 11:59 09/09/24 18:31 650 MG Acetaminophen (TYLenol 650MG SUPPOSITORY) 650 mg Q4H PRN RC Temp >38.3C WHILE INTUBATED 09/07/24 12:00 10/07/24 11:59 Acetaminophen (TYLenol 650MG SUPPOSITORY) 650 mg Q6H PRN RC FEVER / MILD PAIN 1-3 IF NPO 09/06/24 19:00 09/07/24 11:46 DC Acetaminophen (acetaMINOPHEN) 1,000 mg Q6H6 IV 09/07/24 16:00 09/08/24 15:59 DC 09/08/24 12:15 1,000 MG Acetaminophen (acetaMINOPHEN) 1,000 mg Q6H6 IVPB 09/09/24 20:00 09/11/24 19:59 09/11/24 06:03 1,000 MG Albumin Human 250 ml @ 0 mls/hr AD PRN IV IF HEMODYNAMICALLY UNSTABLE 09/07/24 12:00 09/08/24 14:23 DC 09/08/24 14:22 250 MLS/HR Aminocaproic Acid 77937 mg/Sodium Chloride 310 ml @ 25 mls/hr AD IV 09/07/24 12:00 09/07/24 12:04 DC Aminocaproic Acid 94772 mg/Sodium Chloride 480 ml @ 0 mls/hr AD PRN IV BLEEDING CONTROL 09/07/24 07:00 09/11/24 07:06 DC Aspirin (Aspirin 81mg Chew Tab) 81 mg DAILY PO 09/08/24 10:30 10/08/24 10:29 09/11/24 10:32 81 MG Atorvastatin Calcium (LIPItor 40MG) 40 mg HS PO 09/06/24 21:00 10/06/24 20:59 09/10/24 21:02 40 MG Calcium Gluconate 1 gm/Sodium Chloride 60 ml @ 200 mls/hr AD PRN IV HYPOCALCEMIA 09/07/24 12:00 10/07/24 11:59 09/08/24 03:52 200 MLS/HR Cefazolin Sodium (ANCEF 1 gm vial) 2 gm ONCALL IVP 09/06/24 17:30 09/07/24 08:00 DC Cefazolin Sodium (Ancef) 2 gm ONCALL IVP 09/07/24 08:30 09/07/24 11:50 DC 09/07/24 12:00 2 GM Cefazolin Sodium (Ancef) 2 gm Q8H IVPB 09/07/24 17:00 09/08/24 09:01 DC 09/08/24 09:27 2 GM Dexmedetomidine/ Sodium Chloride (PRECEdex 400MCG/ 100ML-NS) 400 mcg PROTOCOL IV 09/07/24 12:00 09/08/24 11:59 DC Dextrose (D50w) 50 ml AD PRN IV HYPOGLYCEMIA PROTOCOL 09/07/24 12:00 10/07/24 11:59 Docusate Sodium (COLace 100MG CAP) 100 mg BID PO 09/07/24 21:00 10/07/24 20:59 09/11/24 10:32 100 MG Docusate Sodium (COLace 100MG CAP) 100 mg BID PRN PO c 09/06/24 19:00 09/07/24 11:46 DC Enoxaparin Sodium (Lovenox) 30 mg DAILY SQ 09/10/24 09:00 10/10/24 08:59 Epinephrine HCl 10 mg/Sodium Chloride 250 ml @ 0 mls/hr AD PRN IV TITRATE 09/07/24 07:00 09/11/24 07:07 DC Epinephrine HCl 10 mg/Sodium Chloride 250 ml @ 0 mls/hr AD PRN IV POST-OP CARDIOVASCULAR ORDERS 09/07/24 12:00 09/07/24 12:04 DC Famotidine (Pepcid 20mg Vial) 20 mg BID IV 09/07/24 21:00 09/09/24 08:41 DC 09/08/24 19:54 20 MG Famotidine (Pepcid 20mg Tab) 20 mg BID PO 09/09/24 09:00 10/09/24 08:59 09/11/24 10:32 20 MG Furosemide (LASix 20MG TAB) 20 mg Q12H PO 09/09/24 09:00 10/09/24 08:59 09/11/24 10:32 20 MG Furosemide (LASix 20MG VIAL) 20 mg Q12H IV 09/08/24 09:00 09/08/24 19:16 DC 09/08/24 09:27 20 MG Glucagon (Glucagon 1mg Kit) 1 mg AD PRN IM HYPOGLYCEMIA PROTOCOL 09/07/24 12:00 10/07/24 11:59 Heparin Sodium/ Dextrose 250 ml @ 0 mls/hr PROTOCOL IV 09/06/24 18:00 09/07/24 11:46 DC Insulin Human Regular (humuLIN R 100 UNIT/ML 3ML) INSULIN SLIDING SCAL... ACHS SQ 09/09/24 07:30 10/09/24 07:29 Insulin Human Regular (humuLIN R 100 UNIT/ML 3ML) INSULIN SLIDING SCAL... Q6H6 SQ 09/07/24 00:00 09/07/24 11:46 DC Insulin Human Regular 100 unit/ Sodium Chloride 100 ml @ 0 mls/hr AD IV 09/07/24 12:00 09/09/24 06:30 DC Ketorolac Tromethamine (toRADol) 30 mg ONCE STAT IV 09/09/24 18:35 09/09/24 18:46 DC Ketorolac Tromethamine (toRADol) 30 mg ONCE STAT IVP 09/08/24 17:16 09/08/24 17:19 DC 09/08/24 17:44 30 MG Ketorolac Tromethamine (toRADol) 30 mg Q6H PRN IVP SEVERE PAIN (7-10) 09/10/24 11:30 09/15/24 11:29 09/10/24 11:51 30 MG Labetalol HCl (TRANdate 20MG SYG) 10 mg Q2H PRN IV SBP GREATER THAN 160 09/06/24 19:00 09/07/24 11:46 DC Lactated Ringer's 1,000 ml @ 50 mls/hr Q20H IV 09/07/24 08:00 09/07/24 11:46 DC Lactulose (Constulose 20gm/ 30ml Udcup) 20 gm BID PRN PO CONSTIPATION 09/07/24 12:00 10/07/24 11:59 Lactulose (Constulose 20gm/ 30ml Udcup) 20 gm Q6H PRN PO CONSTIPATION 09/06/24 19:00 09/07/24 12:06 DC Lidocaine (Lidocaine Patch 4%) 1 each DAILY TP 09/10/24 09:30 10/10/24 09:29 09/10/24 09:51 1 EACH Magnesium Hydroxide (Milk Of Magnesium 30ml) 30 ml DAILY PRN PO CONSTIPATION 09/07/24 12:00 10/07/24 11:59 Magnesium Sulfate 50 ml @ 12.5 mls/hr AD PRN IV MAG LEVEL LESS THAN 2.0 09/07/24 12:00 10/07/24 11:59 09/08/24 07:04 12.5 MLS/HR Metoprolol Tartrate (loprESSOR) 12.5 mg BID PO 09/09/24 09:00 10/09/24 08:59 09/10/24 21:02 12.5 MG Morphine Sulfate (morPHINE 2MG SYG) 0.5 mg Q2H PRN IV MODERATE PAIN (4-6) 09/07/24 12:00 09/08/24 11:59 DC Morphine Sulfate (morPHINE 2MG SYG) 1 mg Q2H PRN IV SEVERE PAIN (7-10) 09/07/24 12:00 09/08/24 11:59 DC 09/07/24 14:38 1 MG Morphine Sulfate (morPHINE 4MG SYG) 4 mg ONCE IM 09/06/24 21:30 09/06/24 23:59 DC 09/06/24 21:30 4 MG Nitroglycerin/ Dextrose 0 ml @ 0 mls/hr AD IV 09/07/24 12:00 09/10/24 11:59 DC 09/09/24 04:59 15 MLS/HR Norepinephrine Bitartrate 250 ml @ 0 mls/hr AD PRN IV TITRATE 09/07/24 07:00 09/11/24 07:06 DC 09/08/24 18:59 5.6 MLS/HR Norepinephrine Bitartrate 8 mg/ Dextrose 250 ml @ 0 mls/hr AD PRN IV POST-OP CARDIOVASCULAR ORDERS 09/07/24 12:00 09/07/24 12:04 DC Ondansetron HCl (zoFRAN 4MG INJ) 4 mg Q6H PRN IV NAUSEA/VOMITING 09/07/24 12:00 10/07/24 11:59 Ondansetron HCl (zoFRAN 4MG INJ) 4 mg Q6H PRN IVP NAUSEA/VOMITING 09/06/24 19:00 09/07/24 11:46 DC Pantoprazole Sodium (PROTonix 40MG TAB) 40 mg DAILY PO 09/07/24 09:00 09/07/24 11:46 DC Potassium Phosphate 250 ml @ 42 mls/hr AD PRN IV LOW PHOS LEVEL 09/07/24 12:00 10/07/24 11:59 Potassium Chloride 100 ml @ 100 mls/hr AD PRN IV HYPOKALEMIA 09/07/24 12:00 10/07/24 11:59 09/10/24 06:07 100 MLS/HR Propofol 100 ml @ 0 mls/hr AD PRN IV SEDATION 09/07/24 12:00 09/11/24 11:59 DC Sodium Bicarbonate (Sodium Bicarb 50meq 50ml Vial) 50 meq AD PRN IV OTHER[SEE DOSING INSTRUCTIONS] 09/07/24 12:00 09/10/24 11:59 DC 09/07/24 15:57 50 MEQ Sodium Chloride 500 ml @ 0 mls/hr AD IV 09/07/24 12:00 10/07/24 11:59 Sodium Chloride 1,000 ml @ 10 mls/hr ONCE IV 09/07/24 12:00 09/08/24 11:59 DC 09/07/24 14:39 10 MLS/HR Sodium Chloride (NS Flush 10ml) 10 ml Q8H PRN IVP IV LINE FLUSH 09/07/24 12:00 10/07/24 11:59 Temazepam (restORIL 15 MG CAP) 15 mg HS PRN PO INSOMNIA 09/09/24 07:30 10/09/24 07:29 09/10/24 21:14 15 MG Tramadol HCl (UltRAM) 25 mg Q6H PRN PO MODERATE PAIN (4-6) 09/07/24 12:00 09/12/24 11:59 Tramadol HCl (UltRAM) 50 mg Q6H PO 09/06/24 21:30 09/07/24 02:59 DC Tramadol HCl (UltRAM) 50 mg Q6H PRN PO MODERATE PAIN (4-6) 09/07/24 03:00 09/07/24 11:46 DC Tramadol HCl (UltRAM) 50 mg Q6H PRN PO SEVERE PAIN (7-10) 09/07/24 12:00 09/12/24 11:59 09/10/24 21:14 50 MG DIAGNOSTICS / RADIOLOGY: [ ] ASSESSMENT: Non ST-elevation PR, POA status post CABG 09/07/24 Severe multivessel coronary artery disease, per left heart catheterization on 09/06/2024: 1. Left main- It bifurcates into LAD and left circumflex arteries. It has proximal 40% disease. 2. LAD: It is 100% chronic total occlusion of the proximal segment of LAD. The distal segment was filling partially via collaterals coming from the right coronary artery. 3. Left circumflex artery: It has 2 obtuse marginal branches. There is 99% disease in the mid segmental of the left circumflex artery. 4. RCA: It is the dominant vessel. There is proximal 40% disease. There is a mid RCA 80% disease. Distal RCA is also has 20% disease. Right PLB also has diffuse 20% disease. 5. LVED P: 60 mm Hg. Left ventricular systolic dysfunction is [id number] decreased, per echo on 09/06/2024 Anterior anterolateral, anteroseptal wall hypokinesis LVEF is 35-40%, per echo on 09/06/2024Transmitral Doppler flow pattern suggestive of impaired LV relaxation. Diastolic dysfunction Acute hypoxemic respiratory failure, POA Leukocytosis Hyperglycemia Transaminitis Elevated BNP Cocaine abuse Tobacco abuse PLAN: Patient downgraded to the PCU Status post CABG postoperative day 4. Continue to follow Cardiothoracic input and recommendation Saturating normal on room air A.m. labs Continue to follow up PT input and recommendation NEURO: Minimize central acting medications as possible. Fall Precautions. Well lighted room through the day and minimize interruptions through the night to prevent acute delirium. PULMONARY: Supplemental 02 as needed BiPAP as necessary, for respiratory distress Titrate Fio2 to keep Spo2 > or = 90% DuoNebs and CPT as needed IS hourly while awake for pulmonary hygiene prn Out of bed to chair as tolerated Maintain aspiration precautions at all times CARDIOVASCULAR: Follow hemodynamics. Vital signs per facility protocol GI & NUTRITION: Continue nutritional support Aspirations precautions Prokinetic agents and laxatives as needed KIDNEYS & ELECTROLYTES: Strict monitoring of intake and output Daily weights Avoid nephrotoxic agents Monitor electrolytes and replace as needed Goal urine output of 30mL/hr or 0.5mL/kg/hr Medications to be dosed according to renal function. Avoid contrast if possible ENDOCRINE: Maintain blood glucose between 100-180 at all times. Insulin sliding scale for blood glucose management Hypoglycemia and hyperglycemia protocol in place INFECTIOUS DISEASE: Trend temperature, WBC and procalcitonin level Follow cultures, deescalate antibiotics as soon as possible. Panculture if new onset fever HEMATOLOGY & COAGULATION: Monitor H&H. Keep Hgb > 7 Transfuse 1 unit of PRBC for Hgb < 7 Transfuse 1 pack of platelets of platelets < 20, 000 Watch for any signs and symptoms of bleeding SKIN: Pressure ulcer prevention per facility protocol Specialty mattress as needed ORTHO/REHAB Continue PT/OT PRN: MEDICATIONS Tylenol 650 mg po every 4 hrs for fever zofran 4 mg IV every 6 hrs for n/v Hydralazine 5 mg IV every 4 hrs systolic pressure > 160 bowel regiment: lactulose 20 gm PO BID PRN constipation Supportive measures: Continue GI and DVT prophylaxis Disposition: Pending CABG today. All questions answered time spent: > 35 min KYLE RIVERA MD September 11, 2024 12:46
--- NOTE | 2024-09-11 13:24 | PN ---
[facility] CARDIOLOGY PROGRESS NOTE Date Patient Seen: September 11, 2024 Time of Visit: 13:05 Interval History: This is a 53-year-old Latin-Finnish male who previously had no documented medical problems other than history of tobacco use and cocaine abuse who initi ally presented to [facility] on 09/06/2024 with onset of chest pain. He had reported using cocaine the night of 09/05/2024. His EKG there demonstrated evidence of recent anteroseptal DE and his troponins were markedly elevated. He underwent a left heart catheterization on 09/06/[address] Ange Bro demonstrating multivessel coronary artery disease and was admitted here to undergo coronary artery bypass. His 2D echocardiogram on 09/06/2024 demonstrated an LVEF of 35-40% with anterior, anterolateral, anteroseptal wall hypokinesis. The patient underwent off pump coronary artery bypass graft x3 vessels with DAMON to the LAD, saphenous vein graft to the OM3 and saphenous vein graft to the RCA on 09/07/[address] Abreu. He has progressed well without any complicating arrhythmias. He offers no chest pain or dyspnea including orthopnea or PND. Physical Examination: GENERAL: No acute distress. HEAD: Normal with no signs of head trauma. EYES: PERRLA, EOMI, conjunctiva and sclera normal. NECK: Supple without JVD. There is no tenderness, lymphadenopathy, or masses. No thyromegaly. Normal carotid upstrokes without bruits. LUNGS: Slightly diminished breath sounds at the bases but otherwise clear. HEART: Normal rate and rhythm. Normal S1 and S2 without murmurs, gallop or rub. VASC: Peripheral pulses +2 bilaterally. median sternotomy is open to air, well approximated EXT: No clubbing, cyanosis or edema. NEURO: Awake, alert, and oriented x3. No focal neurological deficits noted. Laboratory: Hematology Labs: Test 09/11/24 03:44 Range/Units White Blood Count 8.0 4.8-10.8 K/uL Red Blood Count 3.70 L 4.50-6.20 MIL/uL Hemoglobin 11.5 L 14.0-18.0 g/dL Hematocrit 33.8 L 42-54 % Mean Corpuscular Volume 91.4 79-99 fL Mean Corpuscular Hemoglobin 31.1 27.0-33.0 pg Mean Corpuscular Hemoglobin Concent 34.0 32.0-36.0 g/dL Red Cell Distribution Width 13.0 11.0-15.5 % Platelet Count 238 # 130-400 K/uL Mean Platelet Volume 9.7 7.5-10.5 fL Nucleated Red Blood Cells 0.0 0.0-0.19 % Chemistry Labs: Test 09/11/24 11:41 09/11/24 03:44 Range/Units Whole Blood Glucose 115 H 70-110 MG/DL Sodium Level 140 136-145 mmol/L Potassium Level 4.1 3.5-5.1 mmol/L Chloride Level 102 101-111 mmol/L Carbon Dioxide Level 30 21-32 mmol/L Blood Urea Nitrogen 17 7-18 mg/dL Creatinine 0.9 0.5-1.3 mg/dL Glomerular Filtration Rate Calc 101 >90 mL/min Random Glucose 91 70-105 mg/dL Total Calcium 8.3 L 8.5-10.1 mg/dL Magnesium Level 2.10 1.80-2.40 mg/dL Total Bilirubin 0.5 0.2-1.0 mg/dL Aspartate Amino Transf (AST/SGOT) 31 10-37 U/L Alanine Aminotransferase (ALT/SGPT) 27 12-78 U/L Alkaline Phosphatase 55 50-136 U/L Total Protein 6.5 6.0-8.3 g/dL Albumin 2.6 L 3.5-5.0 g/dL Diagnostics / Radiology: Echo done on 09/06/2024: Left ventricular systolic dysfunction is [id number]-[id number] decreased. There was anterior anterolateral, anteroseptal wall hypokinesis LVEF is 35-40%. Transmitral Doppler flow pattern suggestive of impaired LV relaxation. Left heart catheterization on 09/06/2024: Left main-bifurcates into LAD and left circumflex arteries. It has proximal 40% disease. 2. LAD: It is 100% chronic total occlusion of the proximal segment of LAD. The distal segment was filling partially via collaterals coming from the right coronary artery. 3. Left circumflex artery: It has 2 obtuse marginal branches. There is 99% disease in the mid segmental of the left circumflex artery. 4. RCA: It is the dominant vessel. There is proximal 40% disease. There is a mid RCA 80% disease. Distal RCA is also has 20% disease. Right PLB also has diffuse 20% disease. 5. LVED P: 60 mm Hg. 2D echocardiogram 09/07/2024: Conclusion Left ventricular cavity size is normal. LVEF is 40-45%. The left ventricular diastolic function is normal. The right ventricle is normal size. Right ventricular systolic function is mildly reduced. The left atrium is small. The right atrium size is normal. No valvular pathology. No pericardial effusion. Impression and Plan: Recent anteroseptal myocardial infarction in the setting of cocaine abuse, initially presenting to [facility] 09/06/2024 (Troponin on arrival to [facility] [id number],[phone]): Multivessel coronary artery disease by cardiac catheterization on 09/06/2024 , status post off pump coronary artery bypass graft x3 vessels with DAMON to the LAD, saphenous vein graft to the OM3 and saphenous vein graft to the RCA on 09/07/[address] Abreu: - continue postop course, stable and no complicating arrhythmias - add clopidogrel 75 mg p.o. daily and continue with plans for dual antiplatelet therapy with aspirin 81 mg p.o. daily x1 year. Transition his metoprolol tartrate to metoprolol succinate ER 25 mg p.o. daily -Continue statin therapy further risk factor modification with smoking cessation and cessation of cocaine use Ischemic cardiomyopathy with an LVEF of 35-40% by 2D echocardiogram 09/06/2024 and with an LVEF of 40-45% by 2D echocardiogram 09/07/2024: - transitioned metoprolol to metoprolol succinate ER 25 mg p.o. daily - blood pressure has improved and we will begin Entresto 24/26 mg 1 tablet p.o. q.h.s. which can be advanced further as an outpatient to b.i.d. Dyslipidemia with lipid panel 09/07/2024 demonstrating a total cholesterol of 269, triglycerides 105, HDL 47 and LDL of 186: -continue high-intensity statin therapy Tobacco abuse: Cocaine use: - counseling on smoking cessation and avoidance of cocaine use MARCIE COATS September 11, 2024 13:24
[2024-09-11] MEDS: cloPIDOgrel 75MG TAB PO SCH (13:47)
[2024-09-11] MEDS ORDERED: FURO20TA6 PO (14:11)
[2024-09-11] MEDS ORDERED: METO25TA3 PO (14:11)
[2024-09-11] MEDS ORDERED: LIDO1ADH71 TP (14:11)
[2024-09-11] MEDS ORDERED: CLOP-31 PO (14:11)
[2024-09-11] MEDS ORDERED: NITR0.4T50 SL (14:11)
[2024-09-11] MEDS ORDERED: SACU1TAB PO (14:11)
[2024-09-11] MEDS ORDERED: ATOR40TA69 PO (14:11)
[2024-09-11] MEDS ORDERED: ASPI-1005 PO (14:11)
--- NOTE | 2024-09-11 15:09 | NUR ---
DISCHARGE INSTRUCTIONS WERE GIVEN TO THIS PATIENT AND AT BEDSIDE. EDUCATION WAS PROVIDED ON NEW MEDICATIONS AND NUMBERS OF RIVET TOSSER AND CARDIO THORACIC SURGEON WERE PROVIDED. ALL BELONGINGS WERE TAKEN WITH THIS PATIENT. TELE PACK WAS REMOVED AND RETURNED TO TELEMETRY ROOM. PIV WAS REMOVED WITH CATHETER INTACT AND DRY DRESSING WAS APPLIED. PATIENT DENIES ANY PAIN NOR IS IN ANY RESPIRATORY DISTRESS. PATIENT WAS TAKEN DOWN TO PRIVATE VEHICLE VIA WHEEL CHAIR.
--- NOTE | 2024-09-11 15:17 | PN ---
[facility] PROGRESS NOTE Date Patient Seen: September 11, 2024 Time of Visit: 15:11 Supervising Physician: Wesley Nieto MD Primary Care Physician: Outpatient Specialists: [ ] Inpatient Consults: Dr North, Dr Tayo Ratliff MD, Dr Hall, Fadi Severino MD PROBLEM LIST: Acute hypoxemic respiratory failure, POA, resolved Non ST-elevation MA, POA status post CABG 09/07/24 Severe Mv CAD s/p CABG 09/07/24 Acute on Chronic combined Heart failure with EF 35-40% per echo 09/06/24 Leukocytosis Hyperglycemia Transaminitis Polysubstance abuse ( Cocaine Tobacco and etoh) Obesity BMI 30.9 INTERVAL HISTORY: Day 4. Status post CABG x3. patient is awake alert and oriented x3. no major overnight events or dysrhythmias Denies any chest pain palpitation shortness of breath. Reports back pain has resolved post chest tubes removal. Clear lungs on chest x-ray no pneumothorax. Laboratory unremarkable. Apparently patient was able to ambulate 150 ft with physical therapy today. He is progressing well. REVIEW OF SYSTEMS: Const: [no fever, fatigue, or weight changes] Eyes:[ no recent vision problems] ENT: [No congestion, ear pain, or sore throat] C/V: [no chest pain, palpitations or edema Left back pain Resp: [No cough, congestion, wheezing , or Shortness of breath] GI: [No abdominal pain, nausea, vomiting, constipation, or diarrhea] : [No incontinence of or dysuria] M/S: [No joint or pain swelling] Skin: [No rash] Neuro: [no headache, focal numbness, or weakness, dizziness or seizures] Psych: Denies trouble sleeping Heme: [no abnormal bruising or bleeding] Lymph: [no swollen glands] PHYSICAL EXAM: GENERAL: alert, weak, awake oriented x 3 HEENT: EOMI, Sclera non icteric, moist mucosa, mid sternal incision line with nos/s of infection. NECK: Supple, no JVD, trachea midline LUNGS: Diminished breath sounds bilaterally. No wheezes. HEART: Regular rate and rhythm. Normal S1 and S2, without murmurs ABD: Abdomen soft, nontender. Bowel sounds present EXT: No clubbing cyanosis or edema NEURO: Alert and oriented to person, follows commands Vital Signs (last 8hr) Date Time Temp Pulse Resp B/P (MAP) Pulse Ox O2 Delivery O2 Flow Rate FiO2 09/11/24 11:38 98.4 79 18 104/63 98 Room Air 09/11/24 08:00 96 Room Air* 0 21 09/11/24 07:33 99.1 82 18 100/62 96 Room Air LABS: Hematology Labs: Test 09/11/24 03:44 Range/Units White Blood Count 8.0 4.8-10.8 K/uL Red Blood Count 3.70 L 4.50-6.20 MIL/uL Hemoglobin 11.5 L 14.0-18.0 g/dL Hematocrit 33.8 L 42-54 % Mean Corpuscular Volume 91.4 79-99 fL Mean Corpuscular Hemoglobin 31.1 27.0-33.0 pg Mean Corpuscular Hemoglobin Concent 34.0 32.0-36.0 g/dL Red Cell Distribution Width 13.0 11.0-15.5 % Platelet Count 238 # 130-400 K/uL Mean Platelet Volume 9.7 7.5-10.5 fL Nucleated Red Blood Cells 0.0 0.0-0.19 % Chemistry Labs: Test 09/11/24 11:41 09/11/24 03:44 Range/Units Whole Blood Glucose 115 H 70-110 MG/DL Sodium Level 140 136-145 mmol/L Potassium Level 4.1 3.5-5.1 mmol/L Chloride Level 102 101-111 mmol/L Carbon Dioxide Level 30 21-32 mmol/L Blood Urea Nitrogen 17 7-18 mg/dL Creatinine 0.9 0.5-1.3 mg/dL Glomerular Filtration Rate Calc 101 >90 mL/min Random Glucose 91 70-105 mg/dL Total Calcium 8.3 L 8.5-10.1 mg/dL Magnesium Level 2.10 1.80-2.40 mg/dL Total Bilirubin 0.5 0.2-1.0 mg/dL Aspartate Amino Transf (AST/SGOT) 31 10-37 U/L Alanine Aminotransferase (ALT/SGPT) 27 12-78 U/L Alkaline Phosphatase 55 50-136 U/L Total Protein 6.5 6.0-8.3 g/dL Albumin 2.6 L 3.5-5.0 g/dL DIAGNOSTICS / RADIOLOGY RESULTS: IMAGING REPORT Signed PATIENT: ZABRINA RIVERAARITO MR#: [id number] : 1970 SEX: M AGE: 53 LOCATION: 2AH ORDER 230 STATUS: ADM IN REPORT#: [id number] SERVICE 0400 REASON: s/p CABG ORDERING PHYSICIAN: TAYO RATLIFF MD PROCEDURE: CXR1VW - CHEST 1VW Exam Type: CHEST 1VW Clinical Information: s/p CABG Comparison: None Findings: There is cardiomegaly and there is status post median sternotomy. The lungs are clear of infiltrates. Impression: Clear lungs. DICTATED BY: NELSON PINA MD DATE: 09/11/24951 ELECTRONICALLY SIGNED BY: NELSON PINA MD DATE: 09/11/24955 PLAN continue IS Continue To follow CV recs, Monitor electrolytes and replace accordingly Advised pt not to do cocaine anymore because he migh if he does Also advised to quit drinking and smoking in order to decrease the probability of complications and further deterioration of heart failure. NEURO: Minimize central acting medications as possible. Maintain fall precautions, adequate lighting during the day PULMONARY: Supplemental 02 as needed. Maintain aspiration precautions at all times continue workin with IS CARDIOVASCULAR: Follow hemodynamics. Vital signs per facility protocol GI & NUTRITION: Continue with nutritional support. Continue stool softeners and laxatives as needed. KIDNEYS & ELECTROLYTES: Strict monitoring of intake, output and overall fluid balance. Avoid nephrotoxic medications to the extent possible. Medications to be dosed according to renal function. Monitor electrolytes and replace as needed ENDOCRINE: Maintain blood glucose between 100-180 at all times. Hypoglycemia protocol in place INFECTIOUS DISEASE: Trend temperature, WBC and procalcitonin level Follow cultures, deescalate antibiotics as soon as possible. Panculture if new onset fever ONCOLOGY/HEMATOLOGY/COAGULATION: Monitor for s/s of bleeding Monitor hemoglobin, coagulation studies as needed SKIN: Pressure ulcer prevention per facility protocol Specialty mattress ORTHO/REHAB: Continue PT/OT Prophylaxis: Continue GI and DVT prophylaxis Code Status: Full Resuscitation Disposition: PCCU Other: Total patient care time exceeds 35 minutes excluding all procedures. ATTESTATION BY PHYSICIAN I reviewed the documentation, medical decision making, and treatment plan as noted by the mid-level provider above. I agree with the findings and plan of care. Wesley Nieto MD, NELLY J [facility] September 11, 2024 15:17
[2024-09-11] MEDS ORDERED: SACUBITRIL/VALSARTAN 1 EACH TABLET PO SCH (21:00)
[2024-09-12] MEDS ORDERED: metOPROLol sucCINATE 25 MG TAB.SR.24H PO SCH (09:00)
--- NOTE | 2024-09-12 09:06 | DS ---
Discharge Summary Hospital Course Summary: Date of service September 11, 2024 Mr. Merritt is a 53-year-old male with a history of tobacco and cocaine abuse who presented to [facility] as direct admit from [facility] for evaluation of CABG for the diagnosis of multivessel disease. Per chart review the patient presented to [facility] on 09/06/2024 with chest pain that started at 1:00 a.m.. The patient reported he had cocaine on 09/05/2024 night. EKG showed sinus rhythm with a recent NE in the anterior septal lead. His troponins were markedly elevated. The patient was evaluated by Dr. Ange Bro, business intelligence administrator Per Echo done on 09/06/2024: Left ventricular systolic dysfunction is ohtfyxmr-ip-ovkzrg decreased. There was anterior anterolateral, anteroseptal wall hypokinesis LVEF is 35-40%. Transmitral Doppler flow pattern suggestive of impaired LV relaxation. The patient underwent a left heart catheterization on 09/06/2024, findings: Left main- It bifurcates into LAD and left circumflex arteries. It has proximal 40% disease. 2. LAD: It is 100% chronic total occlusion of the proximal segment of LAD. The distal segment was filling partially via collaterals coming from the right coronary artery. 3. Left circumflex artery: It has 2 obtuse marginal branches. There is 99% disease in the mid segmental of the left circumflex artery. 4. RCA: It is the dominant vessel. There is proximal 40% disease. There is a mid RCA 80% disease. Distal RCA is also has 20% disease. Right PLB also has diffuse 20% disease. 5. LVED P: 60 mm Hg. During the course of the hospitalization, patient evaluated by Cardiothoracic surgeon, the patient underwent successful CABG on September 07, 2024, tolerated the procedure well. From the ICU the patient was downgraded to the PCU. Successfully weaned off pressors, insulin drip, chest tube removed, downgraded to the progressive care unit in stable condition. As of September 11, 2024 the patient is hemodynamically stable, evaluated by Cardiothoracic surgeon, cleared from their standpoint to be discharged home. Uc Architect(s): Cardiothoracic surgeon Procedure(s): DATE OF PROCEDURE: 09/07/2024 PREOPERATIVE DIAGNOSIS: Coronary artery disease, total LAD. POSTOPERATIVE DIAGNOSIS: Coronary artery disease, total LAD. PROCEDURE: Off-pump CABG x 3 DAMON to LAD, reverse saphenous vein graft to oblique marginal 3, reverse saphenous vein graft to RCA. SURGEON: Kings Abreu MD PATIENT SERVICE TECHNICIAN PST: Anthony. ANESTHESIA: Olivarez. SANDBLASTER SUPERVISOR: David Stroud MD DISPOSITION: Stable. COMPLICATIONS: None. INDICATIONS: This patient ____, presented with cardiac symptoms. Cardiac catheterization demonstrates 3-vessel coronary artery disease with total occlusion of the LAD and the patient is referred for surgical revascularization. I had the opportunity to review the films and discuss the case with Dr. Stroud at length. We both agreed to surgery as indicated and we recommended it. The patient understands the indications for surgery as well as the potential complications of the operation and wishes to proceed with surgery. DESCRIPTION OF PROCEDURE IN DETAIL: With the patient in the supine position after adequate induction of general endotracheal anesthesia, preoperative intravenous antibiotics, percutaneous arterial and venous lines, surgeon directed timeout utilizing 2 patient identifiers, followed by a mid sternotomy, simultaneous harvesting of the left internal mammary artery from anterior left chest wall and greater saphenous vein from the left lower extremity using endoscope technique. The patient was systemically heparinized and the mammary artery was from the chest in preparation for bypass. Chest retractor was placed. Utilizing mechanical stabilizer and 4-prong tourniquet for vascular control, 3 distal anastomoses performed in a sterile fashion with DAMON and LAD, reverse saphenous vein graft, oblique margin, reverse of venous vein graft and RCA. A partial occlusion clamp placed in the descending aorta and two 4.8 mm punch was performed, running suture of 5-0 Prolene to construct the proximal anastomosis. Grafts deaired and myocardium revascularized. Protamine, hemostasis and closure. Two chest drains, stainless steel wires for sternum, open reduction and internal fixation utilizing 3 TEJA plates and eighteen #16 gauge screws, #1 Vicryl and 3-0 Monocryl for closure. The patient was transferred in stable condition to the ICU. TID: [id number] RECEIPT: [id number] Electronically Signed by: Electronically Co-Signed by: Assessment/Plan: Final diagnosis Non ST-elevation NE, POA status post CABG 09/07/24 Severe multivessel coronary artery disease, per left heart catheterization on 09/06/2024: 1. Left main- It bifurcates into LAD and left circumflex arteries. It has proximal 40% disease. 2. LAD: It is 100% chronic total occlusion of the proximal segment of LAD. The distal segment was filling partially via collaterals coming from the right coronary artery. 3. Left circumflex artery: It has 2 obtuse marginal branches. There is 99% disease in the mid segmental of the left circumflex artery. 4. RCA: It is the dominant vessel. There is proximal 40% disease. There is a mid RCA 80% disease. Distal RCA is also has 20% disease. Right PLB also has diffuse 20% disease. 5. LVED P: 60 mm Hg. Left ventricular systolic dysfunction is [id number] decreased, per echo on 09/06/2024 Anterior anterolateral, anteroseptal wall hypokinesis LVEF is 35-40%, per echo on 09/06/2024Transmitral Doppler flow pattern suggestive of impaired LV relaxation. Diastolic dysfunction Acute hypoxemic respiratory failure, POA Leukocytosis Hyperglycemia Transaminitis Elevated BNP Cocaine abuse Tobacco abuse Discharge Instructions: Patient to follow up with primary care physician as well as Cardiothoracic surgeon Dr. Abreu as an outpatient and to return to the hospital if condition changes. Patient agreed with the plan and understood the information provided. Home Medications: Active Scripts Nitroglycerin (Nitroglycerin) 0.4 Mg Tab.subl, 1 TAB SL AD for chest pain, #25 TAB 1 Refill 1st sign of attack; may repeat every 5 mins; if pain persists after 3 in 15 min, medical attention is recommended Prov:KYLE RIVERA MD 09/11/24 Sacubitril/Valsartan (Entresto 24 mg-26 mg Tablet) 24 Mg-26 Mg Tablet, 1 EACH PO HS for 30 Days, #30 TAB 1 Refill Prov:KYLE RIVERA MD 09/11/24 Metoprolol Succinate (Toprol Xl) 25 Mg Tab.er.24h, 25 MG PO DAILY for 30 Days, #30 TAB 1 Refill Prov:KYLE RIVERA MD 09/11/24 Lidocaine (Lidocaine Pain Relief) 4 % Adh..patch, 1 EACH TP DAILY for 15 Days, #15 ADH.PATCH 1 Refill Prov:KYLE RIVERA MD 09/11/24 Furosemide (Lasix 20Mg Tab) 20 Mg Tablet, 20 MG PO Q12H for 7 Days, #14 TAB 0 Refills Prov:KYLE RIVERA MD 09/11/24 Clopidogrel Bisulfate (Plavix) 75 Mg Tablet, 75 MG PO DAILY for 30 Days, #30 TAB 1 Refill Prov:KYLE RIVERA MD 09/11/24 Atorvastatin Calcium (LIPITOR) 40 Mg Tablet, 40 MG PO HS for 30 Days, #30 TAB 1 Refill Prov:KYLE RIVERA MD 09/11/24 Aspirin (ASPIRIN 81MG CHEW TAB) 81 Mg Tab.chew, 81 MG PO DAILY for 30 Days, #30 TAB.CHEW 1 Refill Prov:KYLE RIVERA MD 09/11/24 Reported Medications Tamsulosin HCl (Flomax) 0.4 Mg Cap.er.24h, 1 CAP PO DAILY for 30 Days, #30 CAP 0 Refills 09/07/24 Discontinued Reported Medications Atorvastatin Calcium (Atorvastatin Calcium) 10 Mg Tablet, 1 TAB PO DAILY for 30 Days, #30 TAB 0 Refills 09/07/24 Time spent arranging discharge: 31-60 minutes KYLE RIVERA MD September 12, 2024 09:06
--- NOTE | 2024-09-14 10:21 | NUR ---
Transitional Phone Call Spoke with Florian Merritt, Spouse [phone] speaking in [place], states "tiene poquito dolor jazlyn en lo que es, esta jaquan." [facility] has all the new prescribed medication; no questions or concerns. [facility] the follow up appointment for cardio surgeon - Dr. Abreu is set up for next week; the cardiology - Dr. Pérez stated the office will call to schedule. [facility] has not been able to find a PCP at this time, directed her to the insurance web page or call the number at the bottom of your insurance call to find a list of PCPs. No further questions or concerns at this time.
== END 2024-09-11 15:38 | disposition home or self-care (01) | DRG 235 ==
LOC: 2BH 16:39 → 2AH 16:43 → 2CV 09-07 12:11 → 2AH 09-10 18:43
PROVIDERS: ADMIT Internal Medicine Sleep Medicine; ATTEND Internal Medicine Sleep Medicine
PROC: 02100Z9 Bypass Coronary Artery, One Artery from Left Internal Mammary, Open Approach (ICD-10-PCS; principal; 2024-09-07 11:27)
PROC: 021109W Bypass Coronary Artery, Two Arteries from Aorta with Autologous Venous Tissue, Open Approach (ICD-10-PCS; 2024-09-07 11:27)
PROC: 06BQ4ZZ Excision of Left Saphenous Vein, Percutaneous Endoscopic Approach (ICD-10-PCS; 2024-09-07 11:27)
PROC: 0PH000Z Insertion of Rigid Plate Internal Fixation Device into Sternum, Open Approach (ICD-10-PCS; 2024-09-07 11:27)
DX: I21.4 Non-ST elevation (NSTEMI) myocardial infarction (principal); I50.43 Acute on chronic combined systolic (congestive) and diastolic (congestive) heart failure; J96.01 Acute respiratory failure with hypoxia; I25.10 Atherosclerotic heart disease of native coronary artery without angina pectoris; D72.829 Elevated white blood cell count, unspecified; F14.10 Cocaine abuse, uncomplicated; R73.9 Hyperglycemia, unspecified; E66.9 Obesity, unspecified; I25.5 Ischemic cardiomyopathy; E78.5 Hyperlipidemia, unspecified; I11.0 Hypertensive heart disease with heart failure; R74.01 Elevation of levels of liver transaminase levels; I25.2 Old myocardial infarction; Z68.30 Body mass index [BMI] 30.0-30.9, adult; Z79.82 Long term (current) use of aspirin; Z72.0 Tobacco use; Z79.899 Other long term (current) drug therapy
CPT/HCPCS: 36415; 36600; 71045; 80048; 80053; 80061; 82330; 82435; 82803; 82947; 82948; 83036; 83605; 83735; 83880; 84100; 84132; 84295; 84443; 84484; 85018; 85025; 85027; 85347; 85610; 85730; 86850; 86900; 86901; 86923; 87641; 93005; 93306; 93312; 93325; 93356; 93880; 94002; 94010; 94150; A4450; A7048; G0378; J0612; J0690; J1644; J1815; J1885; J1940; J2003; J2250; J2270; J2440; J2704; J3010; J3475; J3480; J3490; J7030; J7040; P9045; A4216; A4222; A4223; A4649; A4930; A6204; C1713; C1776; J0283